=== PATIENT | male | born 1950 | race Caucasian/White ===

== ENCOUNTER 2017-12-18 15:23 | Emergency (ER) | payer MEDICARE, MEDICAID ==
[~2017-12-18] VITALS: Ht 165.1 cm; Wt 68.2 kg
[~2017-12-18 15:23] MED LIST: BUPR150T73 PO; GABA800T2 PO; HYDR50TA13 PO; METH-356 PO; METHADONE
[2017-12-18] MEDS ORDERED: DIPH,PERTUSS(ACELL),TET VAC/PF 0.5 ML IM-VACC ONE ×2 (16:00→16:20)
[2017-12-18] MEDS ORDERED: ACETAMINOPHEN 500 MG TABLET ONE (17:09)
[2017-12-18] MEDS ORDERED: ACETAMINOPHEN 500 MG TABLET PO ONE (17:30)
[2017-12-18 17:51] VITALS: BP 158/95
== END 2017-12-18 18:05 | disposition home or self-care (01) ==
LOC: ED 17:26
DX: S00.81XA Abrasion of other part of head, initial encounter (principal); Z59.0 Homelessness; W19.XXXA Unspecified fall, initial encounter; Y93.89 Activity, other specified; Y92.89 Other specified places as the place of occurrence of the external cause; Y99.8 Other external cause status
CPT/HCPCS: 70450; 72125; 90471; 90715; 99284

== ENCOUNTER 2017-12-20 19:50 | Emergency (ER) | payer MEDICARE, MEDICAID ==
[~2017-12-20] VITALS: Ht 167.6 cm; Wt 63.4 kg
[2017-12-20] MEDS ORDERED: SODIUM CHLORIDE 0.9% 1,000 ML IV ONE (19:59)
[2017-12-20] MEDS ORDERED: ONDANSETRON 2MG/ML, 2ML IVPush ONE (20:00)
[2017-12-20] MEDS ORDERED: SODIUM CHLORIDE 0.9% 1,000ML IVBOLUS ONE (20:00)
[2017-12-20] MEDS ORDERED: THIAMINE 100MG TABLET PO ONE (20:00)
[2017-12-20] MEDS ORDERED: FAMOTIDINE 20 MG/2 ML IVP ONE (20:00)
[2017-12-20 20:53] LABS: BASOPHILS # (AUTO) 0.05 x10^3/uL (0-0.1); BASOPHILS % (AUTO) 1 % (0-1); EOSINOPHILS # (AUTO) 0.01 x10^3/uL (0-0.4); EOSINOPHILS % (AUTO) 0 % (1-7); LYMPHOCYTES # (AUTO) 1.97 x10^3/uL (1-3.4); LYMPHOCYTES % (AUTO) 25 % (22-44); MD NO; MEAN CORPUSCULAR HEMOGLOBIN 33.3 pg (27.5-34.5); MEAN CORPUSCULAR HGB CONC 34.3 g/dL (33.2-36.2); MEAN CORPUSCULAR VOLUME 97.1 fL (81-97); MEAN PLATELET VOLUME 7.8 fL (7.4-10.4); MONOCYTES # (AUTO) 0.63 x10^3/uL (0.2-0.8); MONOCYTES % (AUTO) 8 % (2-9); NEUTROPHILS # (AUTO) 5.26 x10^3/uL (1.8-6.8); NEUTROPHILS % (AUTO) 66 % (42-75); PLATELET COUNT 349 x10^3/uL (130-400); RED BLOOD COUNT 5.17 x10^6/uL (4.38-5.82); RED CELL DISTRIBUTION WIDTH 14.2 % (9.4-14.8)
[2017-12-20] MEDS ORDERED: LORazepam 2 MG/ML, 1ML IVPush ONE (21:00)
[2017-12-20] MEDS ORDERED: SODIUM CHLORIDE 0.9%, 500ML IVBOLUS ONE (21:00)
[2017-12-20] MEDS ORDERED: ONDANSETRON 2MG/ML, 2ML ONE ×2 (21:01→23:43)
[2017-12-20] MEDS ORDERED: LORazepam 2 MG/ML, 1ML ONE (21:02)
[2017-12-20] MEDS ORDERED: FAMOTIDINE 20 MG/2 ML ONE (21:02)
[2017-12-20 21:06] LABS: ACETONE, SERUM Trace (10mg/dL) mg/dL (Negative); ALBUMIN 4.1 g/dL (3.4-5.0); ANION GAP 15 mmol/L (5-15); CALCIUM 8.9 mg/dL (8.5-10.1); CHLORIDE 105 mmol/L (98-107)
[2017-12-20 21:11] LABS: ALANINE AMINOTRANSFERASE 27 U/L (12-78); ALKALINE PHOSPHATASE 78 U/L (45-117); BILIRUBIN,TOTAL 0.7 mg/dL (0.2-1.0); CREATININE 0.82 mg/dL (0.7-1.3); TOTAL PROTEIN 8.1 g/dL (6.4-8.2)
[2017-12-20 23:50] VITALS: BP 149/82
== END 2017-12-20 23:52 | disposition home or self-care (01) ==
LOC: ED 21:58
DX: F10.239 Alcohol dependence with withdrawal, unspecified (principal); K29.20 Alcoholic gastritis without bleeding
CPT/HCPCS: 36415; 80053; 82010; 83690; 83735; 85025; 93005; 96361; 96374; 96375; 99285; J2060; J2405; J7030; J7040; S0028

== ENCOUNTER 2018-05-08 01:25 | Emergency (ER) | payer MEDICARE, MEDICAID ==
[~2018-05-08] VITALS: Ht 167.6 cm; Wt 58.9 kg
[2018-05-08] MEDS ORDERED: GABA600T2 PO (01:40)
[2018-05-08] MEDS ORDERED: ONDANSETRON 2MG/ML, 2ML ONE (01:42)
[2018-05-08] MEDS ORDERED: ONDANSETRON 2MG/ML, 2ML IVPush ONE (02:00)
[2018-05-08] MEDS ORDERED: SODIUM CHLORIDE FLUSH 10ML SYR IVF ONE (02:00)
[2018-05-08] MEDS ORDERED: SODIUM CHLORIDE 0.9% 1,000ML IVBOLUS ONE (02:00)
[2018-05-08 02:06] LABS: BASOPHILS # (AUTO) 0.02 x10^3/uL (0-0.1); BASOPHILS % (AUTO) 0 % (0-1); EOSINOPHILS # (AUTO) 0.04 x10^3/uL (0-0.4); EOSINOPHILS % (AUTO) 1 % (1-7); LYMPHOCYTES # (AUTO) 1.48 x10^3/uL (1-3.4); LYMPHOCYTES % (AUTO) 27 % (22-44); MD NO; MEAN CORPUSCULAR HEMOGLOBIN 34.1 pg (27.5-34.5); MEAN CORPUSCULAR HGB CONC 34.1 g/dL (33.2-36.2); MEAN CORPUSCULAR VOLUME 99.9 fL (81-97); MEAN PLATELET VOLUME 7.7 fL (7.4-10.4); MONOCYTES # (AUTO) 0.62 x10^3/uL (0.2-0.8); MONOCYTES % (AUTO) 11 % (2-9); NEUTROPHILS % (AUTO) 60 % (42-75); PLATELET COUNT 197 x10^3/uL (130-400)
[2018-05-08 02:18] LABS: ALANINE AMINOTRANSFERASE 45 U/L (12-78); ALBUMIN 3.8 g/dL (3.4-5.0); ANION GAP 9 mmol/L (5-15); CALCIUM 8.4 mg/dL (8.5-10.1); CHLORIDE 107 mmol/L (98-107); CREATININE 0.76 mg/dL (0.7-1.3)
[2018-05-08 02:20] LABS: ALKALINE PHOSPHATASE 61 U/L (45-117); BILIRUBIN,TOTAL 0.6 mg/dL (0.2-1.0); TOTAL PROTEIN 6.8 g/dL (6.4-8.2)
[2018-05-08 02:35] VITALS: BP 168/97
== END 2018-05-08 02:36 | disposition home or self-care (01) ==
LOC: ED 02:03
DX: R10.84 Generalized abdominal pain (principal); E87.2 Acidosis; R11.2 Nausea with vomiting, unspecified; E86.0 Dehydration; F17.200 Nicotine dependence, unspecified, uncomplicated
CPT/HCPCS: 36415; 74021; 80053; 83605; 83690; 85025; 96374; 99285; J2405; J7030

== ENCOUNTER 2018-05-09 07:02 | Emergency (ER) | payer MEDICARE, MEDICAID ==
[~2018-05-09] VITALS: Ht 167.6 cm; Wt 59.0 kg
[~2018-05-09 07:02] MED LIST changes: +GABA600T2 PO
[2018-05-09 07:04] VITALS: BP 120/70
[2018-05-09] MEDS ORDERED: ONDANSETRON 2MG/ML, 2ML IVPush ONE (07:30)
[2018-05-09] MEDS ORDERED: FAMOTIDINE 20 MG/2 ML IVP ONE (07:30)
[2018-05-09] MEDS ORDERED: SODIUM CHLORIDE FLUSH 10ML SYR IVF ONE (07:30)
[2018-05-09] MEDS ORDERED: SODIUM CHLORIDE 0.9% 1,000ML IVBOLUS ONE (07:30)
[2018-05-09] MEDS ORDERED: FAMOTIDINE 20 MG/2 ML ONE (07:40)
[2018-05-09] MEDS ORDERED: ONDANSETRON 2MG/ML, 2ML ONE (07:40)
[2018-05-09 08:02] LABS: BASOPHILS # (AUTO) 0.02 x10^3/uL (0-0.1); BASOPHILS % (AUTO) 0 % (0-1); EOSINOPHILS # (AUTO) 0.01 x10^3/uL (0-0.4); EOSINOPHILS % (AUTO) 0 % (1-7); LYMPHOCYTES # (AUTO) 1.13 x10^3/uL (1-3.4); LYMPHOCYTES % (AUTO) 19 % (22-44); MD NO; MEAN CORPUSCULAR HEMOGLOBIN 34.3 pg (27.5-34.5); MEAN CORPUSCULAR HGB CONC 34.2 g/dL (33.2-36.2); MEAN CORPUSCULAR VOLUME 100.3 fL (81-97); MONOCYTES # (AUTO) 0.43 x10^3/uL (0.2-0.8); MONOCYTES % (AUTO) 7 % (2-9); NEUTROPHILS # (AUTO) 4.51 x10^3/uL (1.8-6.8); NEUTROPHILS % (AUTO) 74 % (42-75); PLATELET COUNT 212 x10^3/uL (130-400); RED BLOOD COUNT 4.87 x10^6/uL (4.38-5.82); RED CELL DISTRIBUTION WIDTH 13.9 % (9.4-14.8)
[2018-05-09 08:11] LABS: ALANINE AMINOTRANSFERASE 49 U/L (12-78); ALBUMIN 4.3 g/dL (3.4-5.0); ANION GAP 12 mmol/L (5-15); CALCIUM 9.7 mg/dL (8.5-10.1); CHLORIDE 99 mmol/L (98-107); CREATININE 0.72 mg/dL (0.7-1.3)
[2018-05-09 08:13] LABS: ALKALINE PHOSPHATASE 69 U/L (45-117); BILIRUBIN,TOTAL 0.6 mg/dL (0.2-1.0); TOTAL PROTEIN 7.6 g/dL (6.4-8.2)
[2018-05-09] MEDS ORDERED: THIAMINE 100MG TABLET PO ONE (08:30)
[2018-05-09] MEDS ORDERED: LORazepam 1MG TABLET PO ONE (08:30)
[2018-05-09] MEDS ORDERED: FOLIC ACID 1 MG TABLET PO ONE (08:30)
[2018-05-09] MEDS ORDERED: THIAMINE 100MG TABLET ONE (08:49)
[2018-05-09] MEDS ORDERED: LORazepam 1MG TABLET ONE (08:50)
== END 2018-05-09 09:18 | disposition home or self-care (01) ==
LOC: ED 08:04
DX: R11.2 Nausea with vomiting, unspecified (principal)
CPT/HCPCS: 36415; 80053; 83690; 85025; 96374; 96375; 99284; J2405; J7030; S0028

== ENCOUNTER 2018-05-21 11:42 | Inpatient (IN) | payer MEDICARE, MEDICAID ==
[~2018-05-21] VITALS: Ht 167.6 cm; Wt 56.8 kg
[2018-05-21] MEDS ORDERED: FAMOTIDINE 20 MG/2 ML IVP ONE (12:00)
[2018-05-21] MEDS ORDERED: SODIUM CHLORIDE FLUSH 10ML SYR IVF ONE (12:00)
[2018-05-21] MEDS ORDERED: ONDANSETRON 2MG/ML, 2ML IVPush ONE (12:00)
[2018-05-21] MEDS ORDERED: SODIUM CHLORIDE 0.9% 1,000ML IVBOLUS ONE (12:00)
[2018-05-21] MEDS ORDERED: ONDANSETRON 2MG/ML, 2ML ONE (12:03)
[2018-05-21] MEDS ORDERED: FAMOTIDINE 20 MG/2 ML ONE (12:03)
[2018-05-21 12:13] LABS: BASOPHILS # (AUTO) 0.02 x10^3/uL (0-0.1); BASOPHILS % (AUTO) 0 % (0-1); EOSINOPHILS % (AUTO) 0 % (1-7); LYMPHOCYTES # (AUTO) 0.78 x10^3/uL (1-3.4); LYMPHOCYTES % (AUTO) 6 % (22-44); MD NO; MEAN CORPUSCULAR HGB CONC 34.6 g/dL (33.2-36.2); MEAN CORPUSCULAR VOLUME 101.3 fL (81-97); MEAN PLATELET VOLUME 7.4 fL (7.4-10.4); MONOCYTES % (AUTO) 6 % (2-9); NEUTROPHILS # (AUTO) 12.41 x10^3/uL (1.8-6.8); NEUTROPHILS % (AUTO) 89 % (42-75); PLATELET COUNT 327 x10^3/uL (130-400); RED CELL DISTRIBUTION WIDTH 15.3 % (9.4-14.8)
[2018-05-21 12:27] LABS: INTERNATIONAL NORMALIZED RATIO 0.88 (0.93-1.1); PROTHROMBIN TIME 9.2 Seconds (9.6-11.5)
[2018-05-21 12:29] LABS: ALANINE AMINOTRANSFERASE 55 U/L (12-78); ALBUMIN 3.8 g/dL (3.4-5.0); ANION GAP 19 mmol/L (5-15); CALCIUM 7.6 mg/dL (8.5-10.1); CHLORIDE 100 mmol/L (98-107); CREATININE 0.96 mg/dL (0.7-1.3)
[2018-05-21 12:30] LABS: ALKALINE PHOSPHATASE 61 U/L (45-117); BILIRUBIN,TOTAL 0.6 mg/dL (0.2-1.0); TOTAL PROTEIN 7.5 g/dL (6.4-8.2)
[2018-05-21] MEDS ORDERED: SODIUM CHLORIDE 0.9%, 500ML IVBOLUS ONE (13:30)
[2018-05-21] MEDS ORDERED: LORazepam 2 MG/ML, 1ML IVPush ONE (14:00)
[2018-05-21] MEDS ORDERED: METOCLOPRAMIDE 5 MG/ML, 2ML IVPush ONE (14:00)
[2018-05-21] MEDS ORDERED: GABA300C10 PO (14:04)
[2018-05-21] MEDS ORDERED: METOCLOPRAMIDE 5 MG/ML, 2ML ONE (14:05)
[2018-05-21] MEDS ORDERED: LORazepam 2 MG/ML, 1ML ONE (14:07)
[2018-05-21] MEDS ORDERED: LABETALOL 5MG/ML, 20ML IVPush PRN (15:00)
[2018-05-21] MEDS ORDERED: POTASSIUM CHLORIDE 20 MEQ, MAGNESIUM SULFATE 2 GM, THIAMINE 100 MG, MVI ADULT 10 ML, FO... IV SCH (16:00)
[2018-05-21] MEDS: ENOXAPARIN 40 MG/0.4 ML SQ SCH (17:01)
[2018-05-21] MEDS: NICOTINE 14MG/24 HR PATCH.TD24 TD SCH (17:02)
[2018-05-21] MEDS: ONDANSETRON 2MG/ML, 2ML IVPush PRN (17:28)
[2018-05-21 18:00] VITALS: BP 130/86
[2018-05-21] MEDS: LORazepam 2 MG/ML, 1ML IVPush PRN ×2 (18:38→23:19)
[2018-05-21] MEDS ORDERED: METOPROLOL 1 MG/ML, 5ML IVPush ONE (19:15)
[2018-05-21] MEDS ORDERED: METOPROLOL 1 MG/ML, 5ML ONE (19:20)
[2018-05-21] MEDS ORDERED: MAGNESIUM SULFATE PMX 2GM/50ML 50 ML IV ONE (19:30)
[2018-05-21 19:59] VITALS: BP 145/67
[2018-05-21] MEDS ORDERED: DILTIAZEM 125 MG in SODIUM CHLORIDE 0.9% 100 ML IV PRN (20:00)
[2018-05-21] MEDS: PROMETHAZINE 25 MG/ML, 1ML IM PRN (21:26)
[2018-05-21] MEDS: FAMOTIDINE 20 MG/2 ML IVPush SCH (21:26)
[2018-05-22 00:27] VITALS: BP 157/79
[2018-05-22] MEDS: LORazepam 2 MG/ML, 1ML IV PRN ×11 (02:52→23:20)
[2018-05-22] MEDS ORDERED: LORazepam 2 MG/ML, 1ML IV PRN (03:00)
[2018-05-22] MEDS ORDERED: LORazepam 1MG TABLET PO PRN ×3 (03:00)
[2018-05-22 03:45] LABS: OCCULT BLOOD POSITIVE (NEGATIVE)
[2018-05-22 03:54] LABS: CLOSTRIDIUM DIFFICILE TOXIN NEGATIVE (Negative)
[2018-05-22 03:56] LABS: CLOSTRIDIUM DIFFICILE ANTIGEN POSITIVE
[2018-05-22 05:45] LABS: ALANINE AMINOTRANSFERASE 45 U/L (12-78); ALBUMIN 3.4 g/dL (3.4-5.0); ANION GAP 8 mmol/L (5-15); CALCIUM 8.1 mg/dL (8.5-10.1); CHLORIDE 107 mmol/L (98-107); CREATININE 0.69 mg/dL (0.7-1.3); MEAN CORPUSCULAR HEMOGLOBIN 35.2 pg (27.5-34.5); MEAN CORPUSCULAR HGB CONC 34.6 g/dL (33.2-36.2); MEAN CORPUSCULAR VOLUME 101.7 fL (81-97); MEAN PLATELET VOLUME 7.7 fL (7.4-10.4); PLATELET COUNT 240 x10^3/uL (130-400); RED BLOOD COUNT 4.26 x10^6/uL (4.38-5.82)
[2018-05-22 05:48] LABS: ALKALINE PHOSPHATASE 44 U/L (45-117); BILIRUBIN,TOTAL 0.8 mg/dL (0.2-1.0); TOTAL PROTEIN 6.3 g/dL (6.4-8.2)
[2018-05-22 06:13] LABS: MD YES
[2018-05-22 06:15] LABS: BANDS%(MANUAL) 3 % (0-7)
[2018-05-22 06:16] LABS: ANISOCYTOSIS 1+; LYMPH#(MANUAL) 0.81 x10^3/uL (1-3.4); LYMPHS% (MANUAL) 8 % (22-44); MONOS#(MANUAL) 0.61 x10^3/uL (0.3-2.7); MONOS% (MANUAL) 6 % (2-9); SEG#(MANUAL) 8.38 x10^3/uL (1.8-6.8); SEGS% (MANUAL) 83 % (42-75)
[2018-05-22 06:17] LABS: <PLATELET ESTIMATE> ADEQUATE; <PLT MORPHOLOGY> NORMAL PLT MORPH
[2018-05-22 06:52] VITALS: BP 152/79
[2018-05-22] MEDS: ONDANSETRON 2MG/ML, 2ML IVPush PRN ×3 (07:52→23:20)
[2018-05-22] MEDS: FAMOTIDINE 20 MG/2 ML IVPush SCH ×2 (07:52→20:20)
[2018-05-22] MEDS ORDERED: ATENOLOL 25 MG TABLET PO SCH (09:00)
[2018-05-22] MEDS: CHLORDIAZEPOXIDE 5 MG CAPSULE PO SCH ×4 (11:04→21:00)
[2018-05-22] MEDS: METRONIDAZOLE PMX 500MG/100ML 100 ML IV SCH ×2 (11:05→17:14)
[2018-05-22] MEDS: NICOTINE 14MG/24 HR PATCH.TD24 TD SCH (11:25)
[2018-05-22 13:08] VITALS: BP 147/78
[2018-05-22] MEDS: ENOXAPARIN 40 MG/0.4 ML SQ SCH (17:28)
[2018-05-22] MEDS: PROMETHAZINE 25 MG/ML, 1ML IM PRN (17:32)
[2018-05-22] MEDS: POTASSIUM CHLORIDE 20 MEQ, MAGNESIUM SULFATE 1 GM, MVI ADULT 10 ML, THIAMINE 200 MG, FO... IV SCH (18:23)
[2018-05-22 19:18] VITALS: BP 135/71
[2018-05-23] MEDS: LORazepam 2 MG/ML, 1ML IV PRN ×6 (00:14→22:10)
[2018-05-23] MEDS: METRONIDAZOLE PMX 500MG/100ML 100 ML IV SCH ×3 (02:06→18:05)
[2018-05-23 02:59] VITALS: BP 133/86
[2018-05-23] MEDS: NS + 20MEQ KCL 1,000 ML IV SCH ×3 (04:23→23:21)
[2018-05-23 04:34] LABS: BASOPHILS # (AUTO) 0.01 x10^3/uL (0-0.1); BASOPHILS % (AUTO) 0 % (0-1); EOSINOPHILS % (AUTO) 0 % (1-7); LYMPHOCYTES % (AUTO) 13 % (22-44); MD NO; MEAN CORPUSCULAR HEMOGLOBIN 34.8 pg (27.5-34.5); MEAN CORPUSCULAR HGB CONC 33.9 g/dL (33.2-36.2); MEAN CORPUSCULAR VOLUME 102.7 fL (81-97); MEAN PLATELET VOLUME 7.8 fL (7.4-10.4); MONOCYTES # (AUTO) 0.54 x10^3/uL (0.2-0.8); MONOCYTES % (AUTO) 10 % (2-9); NEUTROPHILS # (AUTO) 4.12 x10^3/uL (1.8-6.8); NEUTROPHILS % (AUTO) 77 % (42-75); PLATELET COUNT 177 x10^3/uL (130-400); RED BLOOD COUNT 4.05 x10^6/uL (4.38-5.82); RED CELL DISTRIBUTION WIDTH 14.9 % (9.4-14.8)
[2018-05-23 04:45] LABS: ANION GAP 9 mmol/L (5-15); CHLORIDE 108 mmol/L (98-107)
[2018-05-23 04:49] LABS: ALANINE AMINOTRANSFERASE 44 U/L (12-78); ALKALINE PHOSPHATASE 41 U/L (45-117); BILIRUBIN,TOTAL 0.6 mg/dL (0.2-1.0); CREATININE 0.54 mg/dL (0.7-1.3); TOTAL PROTEIN 5.8 g/dL (6.4-8.2)
[2018-05-23] MEDS: PROMETHAZINE 25 MG/ML, 1ML IM PRN ×2 (06:36→12:38)
[2018-05-23 07:00] VITALS: BP 141/79
[2018-05-23] MEDS: CHLORDIAZEPOXIDE 5 MG CAPSULE PO SCH ×3 (08:52→20:47)
[2018-05-23] MEDS: FAMOTIDINE 20 MG/2 ML IVPush SCH ×2 (08:52→20:47)
[2018-05-23 09:45] LABS: THYROID STIMULATING HORMONE 0.853 mIU/L (0.358-3.740)
[2018-05-23] MEDS: ONDANSETRON 2MG/ML, 2ML IVPush PRN ×3 (10:58→20:47)
[2018-05-23] MEDS: NICOTINE 14MG/24 HR PATCH.TD24 TD SCH (10:59)
[2018-05-23 14:46] VITALS: BP 157/64
[2018-05-23 16:30] LABS: TROPONIN I < 0.015 ng/mL (0.000-0.045)
[2018-05-23 16:36] VITALS: BP 157/64
[2018-05-23 19:27] VITALS: BP 154/71
[2018-05-23] MEDS: POTASSIUM CHLORIDE 20 MEQ, MAGNESIUM SULFATE 1 GM, MVI ADULT 10 ML, THIAMINE 200 MG, FO... IV SCH (20:55)
[2018-05-24 00:47] VITALS: BP 149/71
[2018-05-24] MEDS: LORazepam 2 MG/ML, 1ML IV PRN ×7 (01:13→23:14)
[2018-05-24] MEDS: METRONIDAZOLE PMX 500MG/100ML 100 ML IV SCH (01:57)
[2018-05-24] MEDS ORDERED: LOPERAMIDE 2 MG CAPSULE PO PRN (07:00)
[2018-05-24 07:27] VITALS: BP 138/69
[2018-05-24] MEDS: PROMETHAZINE 25 MG/ML, 1ML IM PRN ×2 (07:31→13:38)
[2018-05-24] MEDS: FAMOTIDINE 20 MG/2 ML IVPush SCH ×2 (07:31→20:14)
[2018-05-24] MEDS: CHLORDIAZEPOXIDE 5 MG CAPSULE PO SCH ×3 (07:31→20:25)
[2018-05-24] MEDS: ONDANSETRON 2MG/ML, 2ML IVPush PRN (10:36)
[2018-05-24] MEDS: NICOTINE 14MG/24 HR PATCH.TD24 TD SCH (10:36)
[2018-05-24 13:54] VITALS: BP 135/65
[2018-05-24] MEDS: NS + 20MEQ KCL 1,000 ML IV SCH ×2 (15:05→20:26)
[2018-05-24 15:41] LABS: ANION GAP 12 mmol/L (5-15); CALCIUM 8.1 mg/dL (8.5-10.1); CHLORIDE 103 mmol/L (98-107); CREATININE 0.43 mg/dL (0.7-1.3)
[2018-05-24] MEDS: GABAPENTIN 100 MG CAPSULE PO SCH ×2 (16:24→20:14)
[2018-05-24] MEDS: morphine SULFATE 10 MG/ML, 1ML IVPush PRN ×2 (16:36→20:14)
[2018-05-24] MEDS: POTASSIUM CHLORIDE 20 MEQ, MAGNESIUM SULFATE 1 GM, MVI ADULT 10 ML, THIAMINE 200 MG, FO... IV SCH (19:17)
[2018-05-24 19:29] VITALS: BP 150/81
[2018-05-25] VITALS (7 sets, daily range): BP systolic 130–168; BP diastolic 73–105
[2018-05-25] MEDS: morphine SULFATE 10 MG/ML, 1ML IVPush PRN ×6 (02:29→20:32)
[2018-05-25 05:55] LABS: ANION GAP 10 mmol/L (5-15); CHLORIDE 101 mmol/L (98-107)
[2018-05-25 06:01] LABS: ALANINE AMINOTRANSFERASE 59 U/L (12-78); ALKALINE PHOSPHATASE 48 U/L (45-117); BILIRUBIN,TOTAL 0.8 mg/dL (0.2-1.0); CALCIUM 8.4 mg/dL (8.5-10.1); CREATININE 0.51 mg/dL (0.7-1.3); TOTAL PROTEIN 6.4 g/dL (6.4-8.2)
[2018-05-25] MEDS: FAMOTIDINE 20 MG/2 ML IVPush SCH (09:36)
[2018-05-25] MEDS: GABAPENTIN 100 MG CAPSULE PO SCH ×3 (09:36→20:32)
[2018-05-25] MEDS: POTASSIUM CHLORIDE 20 MEQ TAB.ER.PRT PO SCH ×2 (09:36→16:10)
[2018-05-25] MEDS: NS + 20MEQ KCL 1,000 ML IV SCH (09:36)
[2018-05-25] MEDS: CHLORDIAZEPOXIDE 5 MG CAPSULE PO SCH ×3 (09:36→20:32)
[2018-05-25] MEDS: NICOTINE 14MG/24 HR PATCH.TD24 TD SCH (11:29)
[2018-05-25] MEDS: LORazepam 0.5MG TABLET PO PRN ×2 (13:12→23:45)
[2018-05-25] MEDS: AMLODIPINE 2.5 MG TABLET PO SCH (14:36)
[2018-05-25] MEDS: POTASSIUM CHLORIDE 20 MEQ, MAGNESIUM SULFATE 1 GM, FOLIC ACID 1 MG, THIAMINE 200 MG, MV... IV SCH (15:33)
[2018-05-25] MEDS: LABETALOL 5MG/ML, 20ML IVPush PRN (16:10)
[2018-05-25] MEDS ORDERED: FAMOTIDINE 20 MG TABLET PO SCH (21:00)
[2018-05-26 00:22] VITALS: BP 153/86
[2018-05-26] MEDS: morphine SULFATE 10 MG/ML, 1ML IVPush PRN ×3 (00:51→08:37)
[2018-05-26 05:23] LABS: ANION GAP 11 mmol/L (5-15); CALCIUM 8.4 mg/dL (8.5-10.1); CHLORIDE 100 mmol/L (98-107)
[2018-05-26 05:26] LABS: BASOPHILS # (AUTO) 0.02 x10^3/uL (0-0.1); BASOPHILS % (AUTO) 0 % (0-1); EOSINOPHILS # (AUTO) 0.09 x10^3/uL (0-0.4); EOSINOPHILS % (AUTO) 1 % (1-7); LYMPHOCYTES # (AUTO) 1.31 x10^3/uL (1-3.4); LYMPHOCYTES % (AUTO) 17 % (22-44); MD NO; MEAN CORPUSCULAR HGB CONC 34.2 g/dL (33.2-36.2); MEAN CORPUSCULAR VOLUME 102.1 fL (81-97); MEAN PLATELET VOLUME 7.9 fL (7.4-10.4); MONOCYTES # (AUTO) 0.98 x10^3/uL (0.2-0.8); MONOCYTES % (AUTO) 13 % (2-9); NEUTROPHILS # (AUTO) 5.29 x10^3/uL (1.8-6.8); NEUTROPHILS % (AUTO) 69 % (42-75); PLATELET COUNT 243 x10^3/uL (130-400); RED BLOOD COUNT 4.59 x10^6/uL (4.38-5.82); RED CELL DISTRIBUTION WIDTH 14.1 % (9.4-14.8)
[2018-05-26 05:27] LABS: ALANINE AMINOTRANSFERASE 73 U/L (12-78); ALKALINE PHOSPHATASE 54 U/L (45-117); BILIRUBIN,TOTAL 0.7 mg/dL (0.2-1.0); TOTAL PROTEIN 6.7 g/dL (6.4-8.2)
[2018-05-26] MEDS: LORazepam 0.5MG TABLET PO PRN (06:20)
[2018-05-26 07:10] VITALS: BP 149/88
[2018-05-26] MEDS: CHLORDIAZEPOXIDE 5 MG CAPSULE PO SCH ×3 (08:37→20:44)
[2018-05-26] MEDS: PANTOPROZOLE 40MG TABLET PO SCH (08:37)
[2018-05-26] MEDS: POTASSIUM CHLORIDE 20 MEQ TAB.ER.PRT PO SCH ×2 (08:37→16:16)
[2018-05-26] MEDS: GABAPENTIN 100 MG CAPSULE PO SCH ×3 (08:38→20:44)
[2018-05-26] MEDS: AMLODIPINE 2.5 MG TABLET PO SCH (08:38)
[2018-05-26] MEDS ORDERED: OXYcodone IR 5MG TABLET PO PRN (11:00)
[2018-05-26] MEDS: NICOTINE 14MG/24 HR PATCH.TD24 TD SCH (13:12)
[2018-05-26 13:34] VITALS: BP 148/98
[2018-05-26] MEDS ORDERED: morphine SULFATE 10 MG/ML, 1ML IVPush PRN (15:30)
[2018-05-26] MEDS: POTASSIUM CHLORIDE 20 MEQ, MAGNESIUM SULFATE 1 GM, FOLIC ACID 1 MG, THIAMINE 200 MG, MV... IV SCH (15:52)
[2018-05-26] MEDS: OXYcodone IR 5MG TABLET PO PRN ×2 (15:53→20:44)
[2018-05-26 16:07] VITALS: BP 164/97
[2018-05-26] MEDS: LABETALOL 5MG/ML, 20ML IVPush PRN (16:15)
[2018-05-26] MEDS: LORazepam 1MG TABLET PO PRN (19:53)
[2018-05-26 19:59] VITALS: BP 155/89
[2018-05-27] MEDS: OXYcodone IR 5MG TABLET PO PRN ×5 (01:34→22:36)
[2018-05-27 02:00] VITALS: BP 149/85
[2018-05-27] MEDS: LORazepam 1MG TABLET PO PRN ×3 (02:40→22:36)
[2018-05-27 05:53] LABS: BASOPHILS # (AUTO) 0.01 x10^3/uL (0-0.1); BASOPHILS % (AUTO) 0 % (0-1); EOSINOPHILS # (AUTO) 0.08 x10^3/uL (0-0.4); EOSINOPHILS % (AUTO) 1 % (1-7); LYMPHOCYTES # (AUTO) 0.99 x10^3/uL (1-3.4); LYMPHOCYTES % (AUTO) 16 % (22-44); MD NO; MEAN CORPUSCULAR HEMOGLOBIN 34.8 pg (27.5-34.5); MEAN CORPUSCULAR HGB CONC 34.4 g/dL (33.2-36.2); MEAN PLATELET VOLUME 8.1 fL (7.4-10.4); MONOCYTES # (AUTO) 0.99 x10^3/uL (0.2-0.8); MONOCYTES % (AUTO) 16 % (2-9); NEUTROPHILS # (AUTO) 4.28 x10^3/uL (1.8-6.8); NEUTROPHILS % (AUTO) 68 % (42-75); PLATELET COUNT 266 x10^3/uL (130-400); RED BLOOD COUNT 4.85 x10^6/uL (4.38-5.82)
[2018-05-27 06:05] LABS: CHLORIDE 101 mmol/L (98-107)
[2018-05-27 06:24] LABS: ALANINE AMINOTRANSFERASE 70 U/L (12-78); ALBUMIN 3.2 g/dL (3.4-5.0); ALKALINE PHOSPHATASE 56 U/L (45-117); ANION GAP 13 mmol/L (5-15); BILIRUBIN,TOTAL 0.7 mg/dL (0.2-1.0); CALCIUM 8.7 mg/dL (8.5-10.1); CREATININE 0.61 mg/dL (0.7-1.3); TOTAL PROTEIN 7.3 g/dL (6.4-8.2)
[2018-05-27 07:00] VITALS: BP 152/92
[2018-05-27] MEDS: AMLODIPINE 2.5 MG TABLET PO SCH (07:50)
[2018-05-27] MEDS: GABAPENTIN 100 MG CAPSULE PO SCH ×3 (07:50→21:57)
[2018-05-27] MEDS: POTASSIUM CHLORIDE 20 MEQ TAB.ER.PRT PO SCH ×2 (07:50→16:28)
[2018-05-27] MEDS: PANTOPROZOLE 40MG TABLET PO SCH (07:50)
[2018-05-27] MEDS: CHLORDIAZEPOXIDE 5 MG CAPSULE PO SCH (07:51)
[2018-05-27] MEDS: LORazepam 0.5MG TABLET PO PRN ×2 (07:59→13:12)
[2018-05-27] MEDS: NICOTINE 14MG/24 HR PATCH.TD24 TD SCH (13:12)
[2018-05-27 14:00] VITALS: BP 138/79
[2018-05-27] MEDS: ACETAMINOPHEN 325 MG TABLET PO PRN (16:28)
[2018-05-27 20:18] VITALS: BP 140/85
[2018-05-27] MEDS ORDERED: DIPHENHYDRAMINE 50 MG CAPSULE PO PRN (21:00)
[2018-05-28 00:29] VITALS: BP 122/76
[2018-05-28] MEDS: ACETAMINOPHEN 325 MG TABLET PO PRN (04:31)
[2018-05-28] MEDS: LORazepam 1MG TABLET PO PRN (04:31)
[2018-05-28] MEDS: OXYcodone IR 5MG TABLET PO PRN (04:31)
[2018-05-28 07:05] VITALS: BP 127/74
[2018-05-28] MEDS: PANTOPROZOLE 40MG TABLET PO SCH (08:26)
[2018-05-28] MEDS: AMLODIPINE 2.5 MG TABLET PO SCH (08:26)
[2018-05-28] MEDS: POTASSIUM CHLORIDE 20 MEQ TAB.ER.PRT PO SCH (08:26)
[2018-05-28] MEDS ORDERED: PANT40TA5 PO (08:29)
[2018-05-28] MEDS ORDERED: BUSP5TAB2 PO (08:29)
[2018-05-28] MEDS ORDERED: AMLO2.5T PO (08:29)
[2018-05-28] MEDS ORDERED: MORPHINE SULFATE 4 MG/ML, 1ML ONE (08:33)
[2018-05-28] MEDS ORDERED: GABAPENTIN 300 MG CAPSULE PO SCH (09:00)
[2018-05-28] MEDS ORDERED: MORPHINE SULFATE 4 MG/ML, 1ML IVPush ONE (09:00)
[2018-05-28] MEDS ORDERED: BUSPIRONE 5 MG TABLET PO SCH (09:00)
== END 2018-05-28 10:47 | disposition home or self-care (01) | DRG 438 ==
LOC: ED 14:34 → SUATTDRO 14:36 → EDIP 15:14 → 3NE 15:47 → 4WST 19:52
PROVIDERS: ADMIT Internal Medicine; ATTEND Internal Medicine
DX: K85.20 Alcohol induced acute pancreatitis without necrosis or infection (principal); J96.01 Acute respiratory failure with hypoxia; E43 Unspecified severe protein-calorie malnutrition; F10.221 Alcohol dependence with intoxication delirium; B17.9 Acute viral hepatitis, unspecified; F10.239 Alcohol dependence with withdrawal, unspecified; J98.11 Atelectasis; R65.10 Systemic inflammatory response syndrome (SIRS) of non-infectious origin without acute organ dysfunction; E86.0 Dehydration; E87.6 Hypokalemia; F17.210 Nicotine dependence, cigarettes, uncomplicated; F41.9 Anxiety disorder, unspecified; G62.9 Polyneuropathy, unspecified; G89.29 Other chronic pain; I10 Essential (primary) hypertension; I48.91 Unspecified atrial fibrillation; R00.1 Bradycardia, unspecified; K29.70 Gastritis, unspecified, without bleeding; K76.0 Fatty (change of) liver, not elsewhere classified; Z66 Do not resuscitate; Z79.899 Other long term (current) drug therapy; Z91.041 Radiographic dye allergy status; Z68.20 Body mass index [BMI] 20.0-20.9, adult
CPT/HCPCS: 36415; 71045; 74176; 76700; 80048; 80053; 80307; 82272; 83690; 83735; 83880; 84100; 84443; 84484; 85025; 85610; 87046; 87324; 87427; 87493; 89055; 93005; 93306; 96361; 96374; 99285; J1650; J2405; J2550; J3411; J3475; J3480; J7042; J7070; J2060; J2270; J2765; J7030; J7040; S0028

== ENCOUNTER 2018-06-05 14:59 | Inpatient (IN) | payer MEDICARE, MEDICAID ==
[~2018-06-05] VITALS: Ht 167.6 cm; Wt 56.5 kg
[~2018-06-05 14:59] MED LIST changes: +AMLO2.5T PO; +BUSP5TAB2 PO; +GABA300C10 PO; +PANT40TA5 PO
[2018-06-05] MEDS ORDERED: ONDANSETRON ODT 4 MG ONE (15:17)
[2018-06-05] MEDS ORDERED: ALBUTEROL/IPRATROPIUM 2.5MG/0.5MG, 3 ML ONE ×2 (15:18→16:27)
[2018-06-05] MEDS ORDERED: ONDANSETRON ODT 4 MG PO ONE (15:30)
[2018-06-05] MEDS ORDERED: SODIUM CHLORIDE FLUSH 10ML SYR IVF ONE (15:30)
[2018-06-05] MEDS ORDERED: ALBUTEROL/IPRATROPIUM 2.5MG/0.5MG, 3 ML NPPB ONE ×2 (15:30→16:30)
[2018-06-05 15:41] LABS: BASOPHILS # (AUTO) 0.03 x10^3/uL (0-0.1); BASOPHILS % (AUTO) 0 % (0-1); EOSINOPHILS # (AUTO) 0.02 x10^3/uL (0-0.4); EOSINOPHILS % (AUTO) 0 % (1-7); LYMPHOCYTES # (AUTO) 1.98 x10^3/uL (1-3.4); LYMPHOCYTES % (AUTO) 18 % (22-44); MD NO; MEAN CORPUSCULAR HEMOGLOBIN 34.4 pg (27.5-34.5); MEAN CORPUSCULAR HGB CONC 34.3 g/dL (33.2-36.2); MEAN CORPUSCULAR VOLUME 100.4 fL (81-97); MEAN PLATELET VOLUME 7.3 fL (7.4-10.4); MONOCYTES # (AUTO) 0.87 x10^3/uL (0.2-0.8); MONOCYTES % (AUTO) 8 % (2-9); NEUTROPHILS # (AUTO) 8.42 x10^3/uL (1.8-6.8); NEUTROPHILS % (AUTO) 74 % (42-75); PLATELET COUNT 440 x10^3/uL (130-400); RED BLOOD COUNT 3.67 x10^6/uL (4.38-5.82); RED CELL DISTRIBUTION WIDTH 14.2 % (9.4-14.8)
[2018-06-05 15:53] LABS: ALANINE AMINOTRANSFERASE 31 U/L (12-78); ALBUMIN 2.1 g/dL (3.4-5.0); ANION GAP 7 mmol/L (5-15); CALCIUM 7.6 mg/dL (8.5-10.1); CHLORIDE 109 mmol/L (98-107)
[2018-06-05] MEDS ORDERED: methylPREDNISolone SOD SUCC 125 MG/2 ML IVP ONE (16:00)
[2018-06-05] MEDS ORDERED: methylPREDNISolone SOD SUCC 125 MG/2 ML ONE (16:06)
[2018-06-05 16:08] LABS: INTERNATIONAL NORMALIZED RATIO 0.91 (0.93-1.1); PROTHROMBIN TIME 9.5 Seconds (9.6-11.5)
[2018-06-05] MEDS ORDERED: DIPH25CA61 PO (16:12)
[2018-06-05 16:17] LABS: ALKALINE PHOSPHATASE 94 U/L (45-117); BILIRUBIN,TOTAL 0.1 mg/dL (0.2-1.0); CREATININE 0.54 mg/dL (0.7-1.3); TOTAL PROTEIN 6.4 g/dL (6.4-8.2)
[2018-06-05] MEDS ORDERED: CEFTRIAXONE 1,000 MG in SODIUM CHLORIDE 0.9% 50 ML IVPB ONE (16:30)
[2018-06-05] MEDS ORDERED: CEFTRIAXONE PMX 1GM/50ML 50 ML ONE (16:42)
[2018-06-05] MEDS ORDERED: VERAPAMIL 2.5 MG/ML, 2ML ONE (17:26)
[2018-06-05] MEDS ORDERED: VERAPAMIL 2.5 MG/ML, 4ML IVPush ONE (17:30)
[2018-06-05] MEDS ORDERED: OMNIPAQUE 350 MG/ML, 100ML BOTTLE ONE (18:20)
[2018-06-05] MEDS ORDERED: DILTIAZEM 5 MG/ML, 5ML IV ONE (19:00)
[2018-06-05] MEDS ORDERED: FOLIC ACID 5 MG/ML IM ONE (19:30)
[2018-06-05] MEDS ORDERED: LORazepam 0.5MG TABLET PO PRN (19:30)
[2018-06-05] MEDS ORDERED: LORazepam 2 MG/ML, 1ML IV PRN ×3 (19:30)
[2018-06-05] MEDS ORDERED: LABETALOL 5MG/ML, 20ML IVPush PRN (19:30)
[2018-06-05] MEDS ORDERED: ONDANSETRON 2MG/ML, 2ML IVPush PRN (19:30)
[2018-06-05] MEDS ORDERED: ENALAPRILAT 1.25 MG/ML, 2ML IVPush PRN (19:30)
[2018-06-05] MEDS ORDERED: THIAMINE 200 MG in DEXTROSE 5% 50 ML IVPB ONE (19:30)
[2018-06-05] MEDS ORDERED: ACETAMINOPHEN 325 MG TABLET PO PRN (19:30)
[2018-06-05] MEDS ORDERED: LORazepam 1MG TABLET PO PRN ×2 (19:30)
[2018-06-05] MEDS ORDERED: ENOXAPARIN 40 MG/0.4 ML SQ SCH (19:30)
[2018-06-05] MEDS: DILTIAZEM 5 MG/ML, 10ML IVPush PRN (20:33)
[2018-06-05 20:43] VITALS: BP 125/82
[2018-06-05] MEDS: LORazepam 2 MG/ML, 1ML IV PRN (21:37)
[2018-06-05] MEDS: FAMOTIDINE 20 MG TABLET PO SCH (21:37)
[2018-06-05] MEDS: BACLOFEN 10 MG TABLET PO SCH (21:37)
[2018-06-05] MEDS: METOPROLOL TARTRATE 50 MG TABLET PO SCH (21:37)
[2018-06-05 21:43] LABS: MICROSCOPIC AUTO
[2018-06-05 21:45] LABS: CULTURE INDICATED? NO
[2018-06-05 21:50] LABS: AMPHETAMINE SCREEN, URINE Negative (Negative); BARBITURATE SCREEN, URINE Negative (Negative); BENZODIAZEPINE SCREEN, URINE Negative (Negative); CANNABINOID SCREEN, URINE Negative (Negative); COCAINE SCREEN, URINE Negative (Negative); METHADONE SCREEN, URINE Positive (Negative); OPIATE SCREEN, URINE Negative (Negative)
[2018-06-05] MEDS ORDERED: FOLIC ACID 1 MG TABLET PO ONE (22:30)
[2018-06-05] MEDS: PIPERACILLIN/TAZO/PMX 3.375GM 50 ML IV SCH (22:33)
[2018-06-05 22:37] VITALS: BP 128/96
[2018-06-05] MEDS: ONDANSETRON ODT 4 MG PO PRN (23:31)
[2018-06-05] MEDS: NS + 20MEQ KCL 1,000 ML IV SCH (23:38)
[2018-06-06 01:59] VITALS: BP 143/92
[2018-06-06] MEDS: PIPERACILLIN/TAZO/PMX 3.375GM 50 ML IV SCH ×4 (02:51→23:30)
[2018-06-06] MEDS: LORazepam 1MG TABLET PO PRN ×3 (04:00→21:12)
[2018-06-06] MEDS: METOPROLOL TARTRATE 50 MG TABLET PO SCH ×3 (05:21→21:13)
[2018-06-06 05:50] LABS: BASOPHILS % (AUTO) 0 % (0-1); EOSINOPHILS % (AUTO) 0 % (1-7); LYMPHOCYTES # (AUTO) 0.37 x10^3/uL (1-3.4); LYMPHOCYTES % (AUTO) 4 % (22-44); MD NO; MEAN CORPUSCULAR HEMOGLOBIN 34.5 pg (27.5-34.5); MEAN CORPUSCULAR HGB CONC 33.8 g/dL (33.2-36.2); MEAN CORPUSCULAR VOLUME 102.2 fL (81-97); MEAN PLATELET VOLUME 8.1 fL (7.4-10.4); MONOCYTES # (AUTO) 0.22 x10^3/uL (0.2-0.8); MONOCYTES % (AUTO) 3 % (2-9); NEUTROPHILS # (AUTO) 8.04 x10^3/uL (1.8-6.8); NEUTROPHILS % (AUTO) 93 % (42-75); PLATELET COUNT 380 x10^3/uL (130-400); RED BLOOD COUNT 3.34 x10^6/uL (4.38-5.82); RED CELL DISTRIBUTION WIDTH 14.2 % (9.4-14.8)
[2018-06-06 05:56] LABS: ANION GAP 8 mmol/L (5-15); CALCIUM 7.8 mg/dL (8.5-10.1); CHLORIDE 105 mmol/L (98-107)
[2018-06-06 05:58] LABS: CREATININE 0.58 mg/dL (0.7-1.3)
[2018-06-06] MEDS: ONDANSETRON ODT 4 MG PO PRN (06:46)
[2018-06-06 07:31] VITALS: BP_SYST 133; BP_SYST 145; BP_DIAS 82; BP_DIAS 96
[2018-06-06] MEDS: BACLOFEN 10 MG TABLET PO SCH ×2 (08:07→20:44)
[2018-06-06] MEDS: LORazepam 2 MG/ML, 1ML IV PRN ×6 (08:07→23:51)
[2018-06-06] MEDS: FAMOTIDINE 20 MG TABLET PO SCH ×2 (08:07→20:44)
[2018-06-06] MEDS: MULTIVITAMINS/MINERALS TABLET PO SCH (08:07)
[2018-06-06] MEDS: NS + 20MEQ KCL 1,000 ML IV SCH ×2 (10:59→20:44)
[2018-06-06 13:14] VITALS: BP 137/85
[2018-06-06 22:00] VITALS: BP_SYST 151; BP_DIAS 9; BP_DIAS 99
[2018-06-06 22:46] VITALS: BP 133/90
[2018-06-07 00:59] VITALS: BP 150/86
[2018-06-07] MEDS: LORazepam 2 MG/ML, 1ML IV PRN ×3 (01:05→03:48)
[2018-06-07] MEDS: DILTIAZEM 5 MG/ML, 10ML IVPush PRN (03:15)
[2018-06-07 03:17] VITALS: BP 132/107
[2018-06-07 03:46] VITALS: BP 144/93
[2018-06-07] MEDS: PIPERACILLIN/TAZO/PMX 3.375GM 50 ML IV SCH (05:36)
[2018-06-07] MEDS: LORazepam 1MG TABLET PO PRN ×3 (05:36→09:35)
[2018-06-07] MEDS: METOPROLOL TARTRATE 50 MG TABLET PO SCH ×3 (05:36→20:18)
[2018-06-07] MEDS: NS + 20MEQ KCL 1,000 ML IV SCH ×3 (06:01→20:06)
[2018-06-07 07:59] LABS: BASOPHILS # (AUTO) 0.02 x10^3/uL (0-0.1); BASOPHILS % (AUTO) 0 % (0-1); EOSINOPHILS % (AUTO) 0 % (1-7); LYMPHOCYTES # (AUTO) 1.47 x10^3/uL (1-3.4); LYMPHOCYTES % (AUTO) 15 % (22-44); MD NO; MEAN CORPUSCULAR HEMOGLOBIN 34.4 pg (27.5-34.5); MEAN CORPUSCULAR HGB CONC 33.8 g/dL (33.2-36.2); MEAN CORPUSCULAR VOLUME 101.6 fL (81-97); MEAN PLATELET VOLUME 7.8 fL (7.4-10.4); MONOCYTES # (AUTO) 0.36 x10^3/uL (0.2-0.8); MONOCYTES % (AUTO) 4 % (2-9); NEUTROPHILS # (AUTO) 7.81 x10^3/uL (1.8-6.8); NEUTROPHILS % (AUTO) 81 % (42-75); PLATELET COUNT 404 x10^3/uL (130-400); RED CELL DISTRIBUTION WIDTH 13.9 % (9.4-14.8)
[2018-06-07 08:06] LABS: ALANINE AMINOTRANSFERASE 56 U/L (12-78); ALBUMIN 1.9 g/dL (3.4-5.0); ANION GAP 7 mmol/L (5-15); CALCIUM 7.8 mg/dL (8.5-10.1); CHLORIDE 109 mmol/L (98-107); CREATININE 0.58 mg/dL (0.7-1.3)
[2018-06-07 08:08] LABS: ALKALINE PHOSPHATASE 178 U/L (45-117); BILIRUBIN,TOTAL 0.3 mg/dL (0.2-1.0); TOTAL PROTEIN 5.9 g/dL (6.4-8.2)
[2018-06-07] MEDS: MULTIVITAMINS/MINERALS TABLET PO SCH ×2 (08:44→14:02)
[2018-06-07] MEDS: BACLOFEN 10 MG TABLET PO SCH (08:44)
[2018-06-07] MEDS: FAMOTIDINE 20 MG TABLET PO SCH (08:44)
[2018-06-07] MEDS ORDERED: DEXMEDETOMIDINE 200 MCG in SODIUM CHLORIDE 0.9% 48 ML IV PRN (10:12)
[2018-06-07] MEDS ORDERED: BISACODYL 10 MG SUPP PR PRN (10:30)
[2018-06-07] MEDS ORDERED: LABETALOL 5MG/ML, 20ML IV PRN (10:30)
[2018-06-07] MEDS ORDERED: PHARMACY INSTRUCTION MC PRN ×4 (10:30)
[2018-06-07] MEDS ORDERED: ACETAMINOPHEN 325 MG TABLET PO PRN (10:30)
[2018-06-07] MEDS ORDERED: SODIUM CHLORIDE 0.9% IV ONE ×3 (10:30→16:00)
[2018-06-07] MEDS ORDERED: PHENOBARBITAL SODIUM IV ONE ×3 (10:30→16:00)
[2018-06-07] MEDS ORDERED: THIAMINE 200 MG in DEXTROSE 5% 50 ML IVPB ONE (10:30)
[2018-06-07] MEDS ORDERED: DOCUSATE 100 MG CAPSULE PO PRN (10:30)
[2018-06-07] MEDS: AMPICILLIN/SULBACTAM 3 GM in SODIUM CHLORIDE 0.9% 100 ML IV SCH ×3 (11:49→21:48)
[2018-06-07] MEDS: PANTOPRAZOLE 40 MG IV IVPush SCH (12:04)
[2018-06-07] MEDS: ENOXAPARIN 40 MG/0.4 ML SQ SCH (12:04)
[2018-06-07] MEDS: FOLIC ACID 1 MG TABLET PO SCH (14:02)
[2018-06-07] MEDS: THIAMINE 100MG TABLET PO SCH (14:03)
[2018-06-07] MEDS: PHENOBARBITAL 20 MG/5 ML ORAL SOL PO SCH (21:49)
[2018-06-07] MEDS ORDERED: ZIPRASIDONE 20 MG INJ IM ONE ×2 (22:37→23:00)
[2018-06-07] MEDS ORDERED: LORazepam 2 MG/ML, 1ML IVPush ONE (23:00)
[2018-06-08] MEDS ORDERED: ZIPRASIDONE 20 MG INJ IM PRN (01:30)
[2018-06-08] MEDS ORDERED: LORazepam 2 MG/ML, 1ML IVPush PRN (01:30)
[2018-06-08] MEDS ORDERED: DIPHENHYDRAMINE 50 MG/ML, 1ML IVPush PRN (02:00)
[2018-06-08] MEDS: NS + 20MEQ KCL 1,000 ML IV SCH ×3 (03:00→23:19)
[2018-06-08] MEDS: AMPICILLIN/SULBACTAM 3 GM in SODIUM CHLORIDE 0.9% 100 ML IV SCH ×4 (04:30→22:33)
[2018-06-08 04:39] LABS: BASOPHILS # (AUTO) 0.02 x10^3/uL (0-0.1); EOSINOPHILS # (AUTO) 0.01 x10^3/uL (0-0.4); MD NO; NEUTROPHILS % (AUTO) 71 % (42-75)
[2018-06-08 04:48] LABS: CHLORIDE 109 mmol/L (98-107)
[2018-06-08 04:57] LABS: BASOPHILS % (AUTO) 0 % (0-1); EOSINOPHILS % (AUTO) 0 % (1-7); LYMPHOCYTES # (AUTO) 1.72 x10^3/uL (1-3.4); LYMPHOCYTES % (AUTO) 22 % (22-44); MEAN CORPUSCULAR HEMOGLOBIN 35.2 pg (27.5-34.5); MEAN CORPUSCULAR HGB CONC 34.3 g/dL (33.2-36.2); MEAN CORPUSCULAR VOLUME 102.6 fL (81-97); MEAN PLATELET VOLUME 7.9 fL (7.4-10.4); MONOCYTES # (AUTO) 0.45 x10^3/uL (0.2-0.8); MONOCYTES % (AUTO) 6 % (2-9); NEUTROPHILS # (AUTO) 5.47 x10^3/uL (1.8-6.8); PLATELET COUNT 401 x10^3/uL (130-400); RED BLOOD COUNT 3.63 x10^6/uL (4.38-5.82); RED CELL DISTRIBUTION WIDTH 14.1 % (9.4-14.8)
[2018-06-08 05:07] VITALS: BP 162/95
[2018-06-08 05:19] LABS: ALANINE AMINOTRANSFERASE 48 U/L (12-78); ALBUMIN 2.2 g/dL (3.4-5.0); ALKALINE PHOSPHATASE 164 U/L (45-117); ANION GAP 9 mmol/L (5-15); BILIRUBIN,TOTAL 0.5 mg/dL (0.2-1.0); CREATININE 0.64 mg/dL (0.7-1.3); THYROID STIMULATING HORMONE 0.981 mIU/L (0.358-3.740); TOTAL PROTEIN 6.5 g/dL (6.4-8.2)
[2018-06-08] MEDS: METOPROLOL TARTRATE 50 MG TABLET PO SCH (05:58)
[2018-06-08] MEDS: THIAMINE 100MG TABLET PO SCH (09:00)
[2018-06-08] MEDS: PANTOPRAZOLE 40 MG IV IVPush SCH (09:01)
[2018-06-08] MEDS: MULTIVITAMINS/MINERALS TABLET PO SCH (09:01)
[2018-06-08] MEDS: FOLIC ACID 1 MG TABLET PO SCH (09:01)
[2018-06-08] MEDS: PHENOBARBITAL 20 MG/5 ML ORAL SOL PO SCH ×2 (10:59→22:34)
[2018-06-08] MEDS: ENOXAPARIN 40 MG/0.4 ML SQ SCH (11:00)
[2018-06-08 13:32] LABS: CLOSTRIDIUM DIFFICILE TOXIN NEGATIVE (Negative)
[2018-06-08 13:34] LABS: CLOSTRIDIUM DIFFICILE ANTIGEN POSITIVE
[2018-06-08] MEDS: VANCOMYCIN 50 MG/ML ORAL SUSP PO SCH (19:30)
[2018-06-08] MEDS: DIPHENHYDRAMINE 50 MG/ML, 1ML IVPush PRN (23:59)
[2018-06-09] MEDS: VANCOMYCIN 50 MG/ML ORAL SUSP PO SCH ×4 (01:16→18:25)
[2018-06-09] MEDS: AMPICILLIN/SULBACTAM 3 GM in SODIUM CHLORIDE 0.9% 100 ML IV SCH ×4 (04:28→22:16)
[2018-06-09 04:43] LABS: BASOPHILS # (AUTO) 0.02 x10^3/uL (0-0.1); BASOPHILS % (AUTO) 0 % (0-1); EOSINOPHILS # (AUTO) 0.02 x10^3/uL (0-0.4); EOSINOPHILS % (AUTO) 0 % (1-7); LYMPHOCYTES # (AUTO) 1.43 x10^3/uL (1-3.4); LYMPHOCYTES % (AUTO) 14 % (22-44); MD NO; MEAN CORPUSCULAR HEMOGLOBIN 35.1 pg (27.5-34.5); MEAN CORPUSCULAR HGB CONC 34.8 g/dL (33.2-36.2); MEAN CORPUSCULAR VOLUME 100.8 fL (81-97); MEAN PLATELET VOLUME 7.4 fL (7.4-10.4); MONOCYTES % (AUTO) 7 % (2-9); NEUTROPHILS # (AUTO) 8.24 x10^3/uL (1.8-6.8); NEUTROPHILS % (AUTO) 79 % (42-75); PLATELET COUNT 477 x10^3/uL (130-400); RED BLOOD COUNT 3.94 x10^6/uL (4.38-5.82); RED CELL DISTRIBUTION WIDTH 13.5 % (9.4-14.8)
[2018-06-09 04:48] LABS: ALBUMIN 2.4 g/dL (3.4-5.0); ANION GAP 11 mmol/L (5-15); CALCIUM 7.9 mg/dL (8.5-10.1); CHLORIDE 104 mmol/L (98-107)
[2018-06-09 04:51] LABS: ALANINE AMINOTRANSFERASE 45 U/L (12-78); ALKALINE PHOSPHATASE 159 U/L (45-117); BILIRUBIN,TOTAL 0.4 mg/dL (0.2-1.0); CREATININE 0.57 mg/dL (0.7-1.3); TOTAL PROTEIN 6.7 g/dL (6.4-8.2)
[2018-06-09] MEDS ORDERED: POTASSIUM CHLORIDE 20 MEQ in DEXTROSE 5% 1,000 ML IV SCH (06:00)
[2018-06-09] MEDS: ONDANSETRON 2MG/ML, 2ML IV PRN (08:15)
[2018-06-09] MEDS: PANTOPRAZOLE 40 MG IV IVPush SCH (08:39)
[2018-06-09] MEDS: THIAMINE 100MG TABLET PO SCH (08:39)
[2018-06-09] MEDS: FOLIC ACID 1 MG TABLET PO SCH (08:39)
[2018-06-09] MEDS: MULTIVITAMINS/MINERALS TABLET PO SCH (08:39)
[2018-06-09] MEDS: PHENOBARBITAL 20 MG/5 ML ORAL SOL PO SCH ×2 (09:19→22:16)
[2018-06-09] MEDS: ENOXAPARIN 40 MG/0.4 ML SQ SCH (11:32)
[2018-06-09] MEDS: ONDANSETRON ODT 4 MG PO PRN (13:40)
[2018-06-09] MEDS ORDERED: MAGNESIUM SULFATE PMX 2GM/50ML 50 ML IV ONE (16:00)
[2018-06-09] MEDS: POTASSIUM CHLORIDE 20 MEQ TAB.ER.PRT PO SCH (18:25)
[2018-06-09 21:07] VITALS: BP 137/86
[2018-06-09] MEDS: QUETIAPINE 25MG TABLET PO SCH (21:16)
[2018-06-10 01:46] VITALS: BP 156/70
[2018-06-10] MEDS: VANCOMYCIN 50 MG/ML ORAL SUSP PO SCH ×4 (01:46→18:31)
[2018-06-10] MEDS: AMPICILLIN/SULBACTAM 3 GM in SODIUM CHLORIDE 0.9% 100 ML IV SCH ×4 (04:01→22:42)
[2018-06-10] MEDS: DIPHENHYDRAMINE 50 MG/ML, 1ML IVPush PRN (05:00)
[2018-06-10 05:11] LABS: CALCIUM 8.1 mg/dL (8.5-10.1); CHLORIDE 106 mmol/L (98-107)
[2018-06-10 05:17] LABS: BASOPHILS # (AUTO) 0.03 x10^3/uL (0-0.1); BASOPHILS % (AUTO) 1 % (0-1); EOSINOPHILS # (AUTO) 0.13 x10^3/uL (0-0.4); EOSINOPHILS % (AUTO) 2 % (1-7); LYMPHOCYTES % (AUTO) 23 % (22-44); MD NO; MEAN CORPUSCULAR HEMOGLOBIN 35.1 pg (27.5-34.5); MEAN CORPUSCULAR HGB CONC 34.5 g/dL (33.2-36.2); MEAN CORPUSCULAR VOLUME 101.8 fL (81-97); MEAN PLATELET VOLUME 7.3 fL (7.4-10.4); MONOCYTES # (AUTO) 0.54 x10^3/uL (0.2-0.8); MONOCYTES % (AUTO) 8 % (2-9); NEUTROPHILS # (AUTO) 4.62 x10^3/uL (1.8-6.8); NEUTROPHILS % (AUTO) 67 % (42-75); PLATELET COUNT 506 x10^3/uL (130-400); RED CELL DISTRIBUTION WIDTH 14.1 % (9.4-14.8)
[2018-06-10 05:18] LABS: ALANINE AMINOTRANSFERASE 40 U/L (12-78); ALBUMIN 2.3 g/dL (3.4-5.0); ALKALINE PHOSPHATASE 131 U/L (45-117); ANION GAP 7 mmol/L (5-15); BILIRUBIN,TOTAL 0.4 mg/dL (0.2-1.0); CREATININE 0.58 mg/dL (0.7-1.3)
[2018-06-10 07:01] VITALS: BP 132/83
[2018-06-10] MEDS: POTASSIUM CHLORIDE 20 MEQ TAB.ER.PRT PO SCH (08:00)
[2018-06-10] MEDS: PANTOPRAZOLE 40 MG IV IVPush SCH (08:00)
[2018-06-10] MEDS: MULTIVITAMINS/MINERALS TABLET PO SCH (08:00)
[2018-06-10] MEDS: THIAMINE 100MG TABLET PO SCH (08:00)
[2018-06-10] MEDS: PHENOBARBITAL 20 MG/5 ML ORAL SOL PO SCH ×2 (11:30→22:42)
[2018-06-10] MEDS: ONDANSETRON 2MG/ML, 2ML IV PRN ×2 (11:30→18:31)
[2018-06-10] MEDS: ENOXAPARIN 40 MG/0.4 ML SQ SCH (11:30)
[2018-06-10] MEDS: FOLIC ACID 1 MG TABLET PO SCH (11:30)
[2018-06-10 13:07] VITALS: BP 136/82
[2018-06-10] MEDS ORDERED: PROMETHAZINE 25 MG/ML, 1ML IM PRN (15:30)
[2018-06-10 18:38] VITALS: BP 114/59
[2018-06-10] MEDS: QUETIAPINE 25MG TABLET PO SCH (21:30)
[2018-06-11 00:36] VITALS: BP 129/78
[2018-06-11] MEDS: VANCOMYCIN 50 MG/ML ORAL SUSP PO SCH (01:19)
[2018-06-11] MEDS: AMPICILLIN/SULBACTAM 3 GM in SODIUM CHLORIDE 0.9% 100 ML IV SCH (04:44)
[2018-06-11] MEDS: ONDANSETRON ODT 4 MG PO PRN (04:49)
== END 2018-06-11 06:43 | disposition left against medical advice (07) | DRG 871 ==
LOC: ED 15:44 → EDIP 19:11 → 5SO 20:24 → CCU 06-07 05:05 → 4WST 06-09 18:37
PROVIDERS: ADMIT Hospitalist; ATTEND Hospitalist
DX: A41.9 Sepsis, unspecified organism (principal); J96.01 Acute respiratory failure with hypoxia; J18.9 Pneumonia, unspecified organism; E43 Unspecified severe protein-calorie malnutrition; J90 Pleural effusion, not elsewhere classified; K92.0 Hematemesis; F11.23 Opioid dependence with withdrawal; F10.231 Alcohol dependence with withdrawal delirium; I48.91 Unspecified atrial fibrillation; F17.210 Nicotine dependence, cigarettes, uncomplicated; F31.9 Bipolar disorder, unspecified; E83.51 Hypocalcemia; E87.6 Hypokalemia; E87.70 Fluid overload, unspecified; D53.9 Nutritional anemia, unspecified; D47.3 Essential (hemorrhagic) thrombocythemia; Z53.21 Procedure and treatment not carried out due to patient leaving prior to being seen by health care provider; Z91.5 Personal history of self-harm; Z91.041 Radiographic dye allergy status; Z82.49 Family history of ischemic heart disease and other diseases of the circulatory system; Z82.5 Family history of asthma and other chronic lower respiratory diseases; Z81.1 Family history of alcohol abuse and dependence; Z71.6 Tobacco abuse counseling; Z68.20 Body mass index [BMI] 20.0-20.9, adult
CPT/HCPCS: 36415; 71045; 71275; 80048; 80053; 80307; 81001; 82607; 83605; 83735; 83880; 84100; 84145; 84443; 85025; 85610; 85730; 87040; 87081; 87324; 87493; 93005; 94640; 96365; 96375; J0295; J0696; J1650; J2405; J2543; J2550; J2560; J3370; J3411; J3480; J3486; J7070; J7620; Q0162; Q9967; C9113; J1200; J2060; J2930; J3475

== ENCOUNTER 2018-06-15 19:59 | Emergency (ER) | payer MEDICARE, MEDICAID ==
[~2018-06-15] VITALS: Ht 167.6 cm; Wt 55.0 kg
[~2018-06-15 19:59] MED LIST changes: +DIPH25CA61 PO
[2018-06-15] MEDS ORDERED: SODIUM CHLORIDE 0.9% 1,000ML IVBOLUS ONE (20:30)
[2018-06-15] MEDS ORDERED: ALBUTEROL/IPRATROPIUM 2.5MG/0.5MG, 3 ML NPPB ONE (20:30)
[2018-06-15] MEDS ORDERED: LORazepam 1MG TABLET PO ONE (21:00)
[2018-06-15 21:08] LABS: ALBUMIN 3.2 g/dL (3.4-5.0); ANION GAP 9 mmol/L (5-15); BASOPHILS # (AUTO) 0.05 x10^3/uL (0-0.1); BASOPHILS % (AUTO) 1 % (0-1); CALCIUM 8.5 mg/dL (8.5-10.1); CHLORIDE 110 mmol/L (98-107); EOSINOPHILS # (AUTO) 0.04 x10^3/uL (0-0.4); EOSINOPHILS % (AUTO) 1 % (1-7); LYMPHOCYTES # (AUTO) 2.26 x10^3/uL (1-3.4); LYMPHOCYTES % (AUTO) 30 % (22-44); MD NO; MEAN CORPUSCULAR HEMOGLOBIN 34.2 pg (27.5-34.5); MEAN CORPUSCULAR HGB CONC 33.8 g/dL (33.2-36.2); MEAN CORPUSCULAR VOLUME 101.2 fL (81-97); MEAN PLATELET VOLUME 6.9 fL (7.4-10.4); MONOCYTES # (AUTO) 0.49 x10^3/uL (0.2-0.8); MONOCYTES % (AUTO) 7 % (2-9); NEUTROPHILS # (AUTO) 4.74 x10^3/uL (1.8-6.8); NEUTROPHILS % (AUTO) 63 % (42-75); PLATELET COUNT 764 x10^3/uL (130-400); RED BLOOD COUNT 4.81 x10^6/uL (4.38-5.82); RED CELL DISTRIBUTION WIDTH 14.8 % (9.4-14.8)
[2018-06-15 21:12] LABS: TROPONIN I < 0.015 ng/mL (0.000-0.045)
[2018-06-15] MEDS ORDERED: ALBUTEROL/IPRATROPIUM 2.5MG/0.5MG, 3 ML ONE (21:23)
[2018-06-15 22:10] VITALS: BP 143/79
== END 2018-06-15 22:43 | disposition home or self-care (01) ==
LOC: ED 22:06
DX: J44.1 Chronic obstructive pulmonary disease with (acute) exacerbation (principal); I10 Essential (primary) hypertension; I48.91 Unspecified atrial fibrillation; F17.200 Nicotine dependence, unspecified, uncomplicated; R00.2 Palpitations; Z91.041 Radiographic dye allergy status
CPT/HCPCS: 36415; 71045; 80048; 82040; 84484; 85025; 93005; 94640; 99285; J7030; J7512; J7620

== ENCOUNTER 2018-06-19 20:44 | Emergency (ER) | payer MEDICARE, MEDICAID ==
[~2018-06-19] VITALS: Ht 167.6 cm; Wt 57.0 kg
[2018-06-19 21:22] VITALS: BP 120/86
== END 2018-06-19 21:54 | disposition home or self-care (01) ==
LOC: ED 21:39
DX: R00.2 Palpitations (principal); I10 Essential (primary) hypertension; J44.9 Chronic obstructive pulmonary disease, unspecified; I48.91 Unspecified atrial fibrillation; Z91.041 Radiographic dye allergy status
CPT/HCPCS: 93005; 99283

== ENCOUNTER 2018-08-17 12:49 | Emergency (ER) | payer MEDICARE, MEDICAID ==
[~2018-08-17] VITALS: Ht 175.3 cm; Wt 59.1 kg
[~2018-08-17 12:49] MED LIST changes: -AMLO2.5T PO; +AMLO2.5T3 PO
[2018-08-17 13:27] VITALS: BP 123/56
[2018-08-17] MEDS ORDERED: DIPHENHYDRAMINE 50 MG CAPSULE ONE (14:28)
[2018-08-17] MEDS ORDERED: DIPHENHYDRAMINE 50 MG CAPSULE PO PRN (14:30)
[2018-08-17] MEDS ORDERED: HYDROmorphone 2 MG/ML, 1ML IVPush PRN (15:00)
[2018-08-17] MEDS ORDERED: THIAMINE 100MG TABLET PO ONE (15:00)
[2018-08-17] MEDS ORDERED: THIAMINE 100MG TABLET ONE (15:04)
== END 2018-08-17 16:40 | disposition home or self-care (01) ==
LOC: ED 14:57
DX: F10.220 Alcohol dependence with intoxication, uncomplicated (principal); J44.9 Chronic obstructive pulmonary disease, unspecified; I48.91 Unspecified atrial fibrillation; I10 Essential (primary) hypertension
CPT/HCPCS: 99283

== ENCOUNTER 2018-08-18 18:38 | Inpatient (IN) | payer MEDICARE, MEDICAID ==
[~2018-08-18] VITALS: Ht 167.6 cm; Wt 55.2 kg
[~2018-08-18 18:38] MED LIST changes: +ETOMIDATE 20 MG/10 ML ONE; +MIDAZOLAM 1 MG/ML, 5ML ONE; +PROPOFOL 10 MG/ML, 100ML IV ONE; +SUCCINYLCHOLINE 20 MG/ML, 10ML ONE
[2018-08-18] MEDS ORDERED: ALBUTEROL/IPRATROPIUM 2.5MG/0.5MG, 3 ML ONE (18:46)
[2018-08-18] MEDS ORDERED: methylPREDNISolone SOD SUCC 125 MG/2 ML ONE (18:48)
[2018-08-18] MEDS ORDERED: LORazepam 2 MG/ML, 1ML ONE ×2 (18:48→20:09)
[2018-08-18] MEDS ORDERED: SODIUM CHLORIDE 0.9% 1,000ML IVBOLUS ONE ×2 (19:00→20:00)
[2018-08-18] MEDS ORDERED: ONDANSETRON 2MG/ML, 2ML ONE (19:00)
[2018-08-18] MEDS ORDERED: methylPREDNISolone SOD SUCC 125 MG/2 ML IVP ONE (19:00)
[2018-08-18] MEDS ORDERED: SODIUM CHLORIDE FLUSH 10ML SYR IVF ONE ×2 (19:00→20:00)
[2018-08-18] MEDS ORDERED: ALBUTEROL/IPRATROPIUM 2.5MG/0.5MG, 3 ML NPPB SCH (19:00)
[2018-08-18] MEDS ORDERED: LORazepam 2 MG/ML, 1ML IVP ONE (19:00)
[2018-08-18] MEDS ORDERED: DEXTROSE 50%, 50ML SYRINGE ONE (19:22)
[2018-08-18 19:28] LABS: MICROSCOPIC INDICATED
[2018-08-18] MEDS ORDERED: ONDANSETRON 2MG/ML, 2ML IVPush ONE (19:30)
[2018-08-18] MEDS ORDERED: DEXTROSE 50%, 50ML SYRINGE IVPush ONE (19:30)
[2018-08-18 19:37] LABS: AMPHETAMINE SCREEN, URINE Negative (Negative); BARBITURATE SCREEN, URINE Negative (Negative); BENZODIAZEPINE SCREEN, URINE Negative (Negative); CANNABINOID SCREEN, URINE Negative (Negative); COCAINE SCREEN, URINE Negative (Negative); METHADONE SCREEN, URINE Positive (Negative); OPIATE SCREEN, URINE Negative (Negative)
[2018-08-18 19:38] LABS: INTERNATIONAL NORMALIZED RATIO 1.03 (0.93-1.1); PROTHROMBIN TIME 10.6 Seconds (9.6-11.5)
[2018-08-18 19:39] LABS: ALANINE AMINOTRANSFERASE 138 U/L (12-78); ALBUMIN 2.6 g/dL (3.4-5.0); ANION GAP 25 mmol/L (5-15); CALCIUM 8.3 mg/dL (8.5-10.1); CHLORIDE 103 mmol/L (98-107); CREATININE 0.42 mg/dL (0.7-1.3); SALICYLATE LEVEL 1.9 mg/dL (2.8-20.0)
[2018-08-18 19:44] LABS: ALKALINE PHOSPHATASE 224 U/L (45-117); BILIRUBIN,TOTAL 1.8 mg/dL (0.2-1.0); TOTAL PROTEIN 6.9 g/dL (6.4-8.2)
[2018-08-18] MEDS ORDERED: CEFTRIAXONE PMX 1GM/50ML 50 ML ONE (19:49)
[2018-08-18 19:50] LABS: ACETAMINOPHEN < 2 mcg/mL (10-30)
[2018-08-18 19:51] LABS: TROPONIN I 0.465 ng/mL (0.000-0.045)
[2018-08-18] MEDS ORDERED: SODIUM CHLORIDE 0.9% 1,000 ML IV ONE (19:54)
[2018-08-18] MEDS ORDERED: CEFTRIAXONE 1,000 MG in SODIUM CHLORIDE 0.9% 50 ML IV ONE (20:00)
[2018-08-18] MEDS ORDERED: MAGNESIUM SULFATE 1 GM, THIAMINE 100 MG, FOLIC ACID 1 MG, MVI ADULT 10 ML in SODIUM CHL... IV ONE (20:00)
[2018-08-18] MEDS ORDERED: CEFTRIAXONE 1,000 MG in SODIUM CHLORIDE 0.9% 100 ML IV ONE (20:00)
[2018-08-18] MEDS ORDERED: ASPIRIN 81 MG TABLET CHEW PO ONE (20:00)
[2018-08-18] MEDS ORDERED: AZITHROMYCIN 500 MG in SODIUM CHLORIDE 0.9% 250 ML IV ONE (20:00)
[2018-08-18] MEDS ORDERED: ASPIRIN 81 MG TABLET EC ONE (20:09)
[2018-08-18] MEDS ORDERED: ASPIRIN 81 MG TABLET CHEW ONE (20:13)
[2018-08-18 20:17] LABS: CULTURE INDICATED? NO
[2018-08-18] MEDS ORDERED: POTASSIUM CHLORIDE 20 MEQ PACKET ONE (20:20)
[2018-08-18] MEDS ORDERED: LORazepam 2 MG/ML, 1ML IVPush PRN (20:30)
[2018-08-18] MEDS ORDERED: POTASSIUM CHLORIDE 20 MEQ TAB.ER.PRT PO ONE (20:30)
[2018-08-18 20:39] LABS: MD YES; MEAN CORPUSCULAR HGB CONC 33.8 g/dL (33.2-36.2); MEAN CORPUSCULAR VOLUME 106.3 fL (81-97); MEAN PLATELET VOLUME 7.1 fL (7.4-10.4); PLATELET COUNT 229 x10^3/uL (130-400); RED BLOOD COUNT 4.19 x10^6/uL (4.38-5.82); RED CELL DISTRIBUTION WIDTH 16.3 % (9.4-14.8)
[2018-08-18 20:47] LABS: BAND#(MANUAL) 2.24 x10^3/uL; BANDS%(MANUAL) 59 % (0-7); LYMPH#(MANUAL) 0.87 x10^3/uL (1-3.4); LYMPHS% (MANUAL) 23 % (22-44); METAMYELOCYTES% (MANUAL) 8 % (0-1); MONOS#(MANUAL) 0.08 x10^3/uL (0.3-2.7); MONOS% (MANUAL) 2 % (2-9); SEGS% (MANUAL) 8 % (42-75)
[2018-08-18 20:48] LABS: <PLATELET ESTIMATE> ADEQUATE; <PLT MORPHOLOGY> NORMAL PLT MORPH; <RBC MORPHOLOGY> NORMAL
[2018-08-18] MEDS ORDERED: AMPICILLIN/SULBACTAM 3 GM in SODIUM CHLORIDE 0.9% 100 ML IV ONE (21:00)
[2018-08-18] MEDS: SODIUM CHLORIDE 0.9% 1,000 ML IV SCH (21:14)
[2018-08-18] MEDS: POTASSIUM CHLORIDE 20 MEQ, MAGNESIUM SULFATE 2 GM, THIAMINE 200 MG, MVI ADULT 10 ML, FO... IV SCH (21:14)
[2018-08-18] MEDS ORDERED: PROPOFOL 100 ML IV PRN (21:20)
[2018-08-18 21:28] LABS: ACETONE, SERUM Large (80mg/dL) mg/dL (Negative)
[2018-08-18 21:30] VITALS: BP 96/62
[2018-08-18] MEDS ORDERED: BISACODYL 10 MG SUPP PR PRN (21:30)
[2018-08-18] MEDS ORDERED: LABETALOL 5MG/ML, 20ML IVPush PRN (21:30)
[2018-08-18] MEDS ORDERED: VANCOMYCIN PER PHARMACY MC PRN (21:30)
[2018-08-18] MEDS ORDERED: DEXTROSE 4 GM TAB.CHEW PO PRN (21:30)
[2018-08-18] MEDS ORDERED: ETOMIDATE 20 MG/10 ML IV ONE (21:30)
[2018-08-18] MEDS ORDERED: GLUCAGON 1 MG IM PRN (21:30)
[2018-08-18] MEDS ORDERED: SUCCINYLCHOLINE 20 MG/ML, 10ML IVPush ONE (21:30)
[2018-08-18] MEDS ORDERED: DEXTROSE 50%, 50ML SYRINGE IVPush PRN (21:30)
[2018-08-18] MEDS: PROPOFOL 100 ML IV PRN (21:50)
[2018-08-18] MEDS ORDERED: VANCOMYCIN 1,100 MG in SODIUM CHLORIDE 0.9% 250 ML IV SCH (22:30)
[2018-08-18] MEDS ORDERED: PHARMACOKINETIC MONITORING MC PRN (22:30)
[2018-08-18] MEDS ORDERED: PHARMACOKINETIC CONSULTATION MC ONE (22:30)
[2018-08-18] MEDS ORDERED: LIDOCAINE-MPF 1%, 2ML ENDO PRN (22:30)
[2018-08-18 23:26] LABS: TROPONIN I 0.559 ng/mL (0.000-0.045)
[2018-08-18] MEDS ORDERED: SODIUM BICARB 8.4%, 50ML SYRINGE IVPush ONE (23:30)
[2018-08-18] MEDS: FAMOTIDINE 20 MG/2 ML IVPush SCH (23:51)
[2018-08-18] MEDS: PIPERACILLIN/TAZO/PMX 3.375GM 50 ML IV SCH (23:52)
[2018-08-18] MEDS: ENOXAPARIN 40 MG/0.4 ML SQ SCH (23:52)
[2018-08-19] MEDS: PROPOFOL 100 ML IV PRN ×3 (02:31→15:03)
[2018-08-19] MEDS: SODIUM CHLORIDE 0.9% 1,000 ML IV SCH (03:54)
[2018-08-19] MEDS: POTASSIUM CHLORIDE 20 MEQ, MAGNESIUM SULFATE 2 GM, THIAMINE 200 MG, MVI ADULT 10 ML, FO... IV SCH (04:05)
[2018-08-19 04:27] LABS: MEAN CORPUSCULAR HEMOGLOBIN 35.5 pg (27.5-34.5); MEAN CORPUSCULAR HGB CONC 33.7 g/dL (33.2-36.2); MEAN CORPUSCULAR VOLUME 105.2 fL (81-97); MEAN PLATELET VOLUME 7.2 fL (7.4-10.4); PLATELET COUNT 188 x10^3/uL (130-400); RED BLOOD COUNT 3.59 x10^6/uL (4.38-5.82); RED CELL DISTRIBUTION WIDTH 15.9 % (9.4-14.8)
[2018-08-19 04:32] LABS: MD YES
[2018-08-19 04:33] LABS: ALBUMIN 1.7 g/dL (3.4-5.0); ANION GAP 19 mmol/L (5-15); CALCIUM 7.5 mg/dL (8.5-10.1); CHLORIDE 111 mmol/L (98-107)
[2018-08-19 04:38] LABS: ALANINE AMINOTRANSFERASE 104 U/L (12-78); ALKALINE PHOSPHATASE 145 U/L (45-117); BILIRUBIN,TOTAL 1.7 mg/dL (0.2-1.0); CREATININE 0.47 mg/dL (0.7-1.3); TOTAL PROTEIN 5.4 g/dL (6.4-8.2)
[2018-08-19] MEDS: PIPERACILLIN/TAZO/PMX 3.375GM 50 ML IV SCH ×4 (04:43→20:38)
[2018-08-19 04:52] LABS: TROPONIN I 0.425 ng/mL (0.000-0.045)
[2018-08-19 04:57] VITALS: BP 97/60
[2018-08-19 05:19] LABS: BAND#(MANUAL) 1.57 x10^3/uL; BANDS%(MANUAL) 56 % (0-7); LYMPH#(MANUAL) 0.42 x10^3/uL (1-3.4); LYMPHS% (MANUAL) 15 % (22-44); METAMYELOCYTES# (MANUAL) 0.17 x10^3/uL (0-0); METAMYELOCYTES% (MANUAL) 6 % (0-1); MONOS#(MANUAL) 0.17 x10^3/uL (0.3-2.7); MONOS% (MANUAL) 6 % (2-9); MYELOCYTES# (MANUAL) 0.08 x10^3/uL (0-0); MYELOCYTES% (MANUAL) 3 % (0-0); REACTIVE LYMPHS # (MANUAL) 0.06 x10^3/uL (0-0); REACTIVE LYMPHS % (MANUAL) 2 % (0-0); SEG#(MANUAL) 0.34 x10^3/uL (1.8-6.8); SEGS% (MANUAL) 12 % (42-75)
[2018-08-19 05:20] LABS: ANISOCYTOSIS 1+
[2018-08-19 05:21] LABS: <PLATELET ESTIMATE> ADEQUATE; <PLT MORPHOLOGY> NORMAL PLT MORPH
[2018-08-19] MEDS: FAMOTIDINE 20 MG/2 ML IVPush SCH ×2 (08:38→20:37)
[2018-08-19] MEDS: SODIUM CHLORIDE FLUSH 10ML SYR IVF SCH ×2 (08:38→20:37)
[2018-08-19] MEDS: MIDAZOLAM HCL 25 MG in SODIUM CHLORIDE 0.9% 245 ML IV PRN ×2 (09:04→20:57)
[2018-08-19] MEDS ORDERED: POTASSIUM PHOSPHATE 44 MEQ in SODIUM CHLORIDE 0.9% 500 ML IV ONE (09:30)
[2018-08-19] MEDS ORDERED: MAGNESIUM SULFATE PMX 2GM/50ML 50 ML IV ONE (09:30)
[2018-08-19] MEDS: SODIUM CHLORIDE 0.45% 1,000 ML IV SCH ×2 (09:58→19:30)
[2018-08-19 14:30] LABS: CLOSTRIDIUM DIFFICILE ANTIGEN POSITIVE; CLOSTRIDIUM DIFFICILE TOXIN NEGATIVE (Negative)
[2018-08-19] MEDS: ACETAMINOPHEN 650 MG/20.3 ML UDC NG PRN (18:00)
[2018-08-19] MEDS: VANCOMYCIN 1,100 MG in SODIUM CHLORIDE 0.9% 250 ML IV SCH (18:05)
[2018-08-19] MEDS: ENOXAPARIN 40 MG/0.4 ML SQ SCH (20:38)
[2018-08-19] MEDS ORDERED: THIAMINE 200 MG, MVI ADULT 10 ML, FOLIC ACID 1 MG in D5%-0.9% NACL 1,000 ML IV SCH (21:14)
[2018-08-20] MEDS: PIPERACILLIN/TAZO/PMX 3.375GM 50 ML IV SCH ×4 (02:55→21:31)
[2018-08-20 05:12] LABS: MEAN PLATELET VOLUME 7.9 fL (7.4-10.4); PLATELET COUNT 154 x10^3/uL (130-400); RED BLOOD COUNT 3.01 x10^6/uL (4.38-5.82); RED CELL DISTRIBUTION WIDTH 16.6 % (9.4-14.8)
[2018-08-20 05:18] LABS: ALBUMIN 1.5 g/dL (3.4-5.0); ANION GAP 14 mmol/L (5-15); CHLORIDE 115 mmol/L (98-107)
[2018-08-20 05:23] LABS: ALANINE AMINOTRANSFERASE 73 U/L (12-78); ALKALINE PHOSPHATASE 125 U/L (45-117); BILIRUBIN,TOTAL 1.2 mg/dL (0.2-1.0); CREATININE 0.46 mg/dL (0.7-1.3)
[2018-08-20] MEDS: SODIUM CHLORIDE 0.45% 1,000 ML IV SCH (05:30)
[2018-08-20 05:37] LABS: MD YES
[2018-08-20 05:40] LABS: MONOS#(MANUAL) 0.05 x10^3/uL (0.3-2.7); MONOS% (MANUAL) 1 % (2-9)
[2018-08-20 05:41] LABS: METAMYELOCYTES% (MANUAL) 2 % (0-1)
[2018-08-20 05:43] LABS: BAND#(MANUAL) 1.82 x10^3/uL; BANDS%(MANUAL) 38 % (0-7); LYMPH#(MANUAL) 0.34 x10^3/uL (1-3.4); LYMPHS% (MANUAL) 7 % (22-44); SEGS% (MANUAL) 52 % (42-75)
[2018-08-20 05:44] LABS: ANISOCYTOSIS 1+; PMNS WITH VACUOLES 1+
[2018-08-20 05:45] LABS: <PLATELET ESTIMATE> ADEQUATE; <PLT MORPHOLOGY> NORMAL PLT MORPH
[2018-08-20] MEDS ORDERED: POTASSIUM CHLORIDE 10% 40 MEQ/30 ML UDC PO ONE ×2 (06:00→07:00)
[2018-08-20] MEDS ORDERED: AMIODARONE 900 MG in DEXTROSE 5% 482 ML IV PRN (06:30)
[2018-08-20] MEDS ORDERED: MAGNESIUM SULFATE PMX 2GM/50ML 50 ML IV ONE (07:00)
[2018-08-20] MEDS ORDERED: POTASSIUM PHOSPHATE 44 MEQ in SODIUM CHLORIDE 0.9% 500 ML IV ONE (07:00)
[2018-08-20] MEDS ORDERED: FILTER 0.22 MICRON IV PRN (07:00)
[2018-08-20] MEDS ORDERED: AMIODARONE 150 MG in DEXTROSE 5% 100 ML IV ONE ×2 (07:00→16:00)
[2018-08-20] MEDS ORDERED: PHARMACY INSTRUCTION MC PRN ×4 (08:30)
[2018-08-20] MEDS ORDERED: PHENOBARBITAL SODIUM 640 MG in SODIUM CHLORIDE 0.9% 50 ML IVPB ONE (08:30)
[2018-08-20] MEDS ORDERED: PHENOBARBITAL SODIUM IV ONE ×2 (08:30→11:30)
[2018-08-20] MEDS ORDERED: SODIUM CHLORIDE 0.9% IV ONE ×2 (08:30→11:30)
[2018-08-20] MEDS ORDERED: THIAMINE 100MG TABLET PO SCH (09:00)
[2018-08-20] MEDS: FOLIC ACID 1 MG TABLET PO SCH (09:04)
[2018-08-20] MEDS: SODIUM CHLORIDE FLUSH 10ML SYR IVF SCH ×2 (09:04→21:31)
[2018-08-20] MEDS: FAMOTIDINE 20 MG/2 ML IVPush SCH ×2 (09:04→21:31)
[2018-08-20] MEDS: DEXTROSE 5% 1,000 ML IV SCH ×2 (09:04→18:07)
[2018-08-20] MEDS: VANCOMYCIN 1,100 MG in SODIUM CHLORIDE 0.9% 250 ML IV SCH (10:12)
[2018-08-20] MEDS: DEXMEDETOMIDINE 200 MCG in SODIUM CHLORIDE 0.9% 48 ML IV PRN ×2 (10:12→15:53)
[2018-08-20 12:14] LABS: OCCULT BLOOD POSITIVE (NEGATIVE)
[2018-08-20] MEDS ORDERED: SODIUM CHLORIDE 0.9%, 500ML IVBOLUS ONE (16:00)
[2018-08-20] MEDS ORDERED: SODIUM CHLORIDE 0.9% 1,000ML IVBOLUS ONE (18:00)
[2018-08-20] MEDS: ACETAMINOPHEN 650 MG/20.3 ML UDC NG PRN (18:06)
[2018-08-20] MEDS ORDERED: NOREPINEPHRINE 1 MG/ML, 4ML ONE (18:35)
[2018-08-20] MEDS ORDERED: NOREPINEPHRINE 4 MG in SODIUM CHLORIDE 0.9% 246 ML IV PRN (19:00)
[2018-08-20] MEDS ORDERED: MIDAZOLAM 1 MG/ML, 5ML ONE (19:18)
[2018-08-20] MEDS ORDERED: MIDAZOLAM 1 MG/ML, 5ML IVPush ONE (19:30)
[2018-08-20] MEDS: PHENOBARBITAL SODIUM 65 MG/ML, 1ML IM SCH (21:00)
[2018-08-20] MEDS: ENOXAPARIN 40 MG/0.4 ML SQ SCH (21:30)
[2018-08-21] MEDS: DEXMEDETOMIDINE 200 MCG in SODIUM CHLORIDE 0.9% 48 ML IV PRN ×4 (01:30→19:47)
[2018-08-21] MEDS: PHENOBARBITAL SODIUM 65 MG/ML, 1ML IM SCH ×2 (01:37→13:48)
[2018-08-21] MEDS: PIPERACILLIN/TAZO/PMX 3.375GM 50 ML IV SCH (04:26)
[2018-08-21 04:59] LABS: ALANINE AMINOTRANSFERASE 145 U/L (12-78); ALBUMIN 1.5 g/dL (3.4-5.0); ANION GAP 12 mmol/L (5-15); CALCIUM 7.8 mg/dL (8.5-10.1); CHLORIDE 112 mmol/L (98-107); CREATININE 0.65 mg/dL (0.7-1.3); TRIGLYCERIDES 126 mg/dL (50-200)
[2018-08-21] MEDS: VANCOMYCIN 1,100 MG in SODIUM CHLORIDE 0.9% 250 ML IV SCH (04:59)
[2018-08-21 05:06] LABS: ALKALINE PHOSPHATASE 193 U/L (45-117); TOTAL PROTEIN 5.3 g/dL (6.4-8.2); VANCOMYCIN,TROUGH 5.8 mcg/mL (5.0-10.0)
[2018-08-21 05:44] LABS: MD YES; MEAN CORPUSCULAR HEMOGLOBIN 35.3 pg (27.5-34.5); MEAN CORPUSCULAR HGB CONC 33.2 g/dL (33.2-36.2); MEAN CORPUSCULAR VOLUME 106.2 fL (81-97); MEAN PLATELET VOLUME 8.7 fL (7.4-10.4); PLATELET COUNT 137 x10^3/uL (130-400); RED BLOOD COUNT 3.34 x10^6/uL (4.38-5.82); RED CELL DISTRIBUTION WIDTH 16.1 % (9.4-14.8)
[2018-08-21 05:47] LABS: <PLATELET ESTIMATE> ADEQUATE; <PLT MORPHOLOGY> NORMAL PLT MORPH; ANISOCYTOSIS 1+; BAND#(MANUAL) 0.25 x10^3/uL; BANDS%(MANUAL) 4 % (0-7); LYMPH#(MANUAL) 0.82 x10^3/uL (1-3.4); LYMPHS% (MANUAL) 13 % (22-44); MONOS#(MANUAL) 0.38 x10^3/uL (0.3-2.7); MONOS% (MANUAL) 6 % (2-9); PMNS WITH VACUOLES 1+; SEG#(MANUAL) 4.85 x10^3/uL (1.8-6.8); SEGS% (MANUAL) 77 % (42-75); TOXIC GRAN 1+
[2018-08-21] MEDS ORDERED: SODIUM PHOSPHATE 20 MMOL in SODIUM CHLORIDE 0.9% 500 ML IV ONE (07:30)
[2018-08-21] MEDS ORDERED: MAGNESIUM SULFATE PMX 2GM/50ML 50 ML IV ONE (07:30)
[2018-08-21] MEDS: CEFTRIAXONE PMX 2GM/50ML 50 ML IV SCH (08:37)
[2018-08-21] MEDS: THIAMINE 200 MG in SODIUM CHLORIDE 0.9% 50 ML IV SCH (08:37)
[2018-08-21] MEDS: SODIUM CHLORIDE FLUSH 10ML SYR IVF SCH ×2 (08:38→21:25)
[2018-08-21] MEDS: VANCOMYCIN 50 MG/ML ORAL SUSP PO SCH ×3 (08:38→19:50)
[2018-08-21] MEDS: FAMOTIDINE 20 MG/2 ML IVPush SCH ×2 (09:10→21:25)
[2018-08-21] MEDS: FOLIC ACID 1 MG TABLET PO SCH (09:11)
[2018-08-21] MEDS: DEXTROSE 5% 1,000 ML IV SCH ×2 (10:30→23:19)
[2018-08-21] MEDS: ENOXAPARIN 40 MG/0.4 ML SQ SCH (21:30)
[2018-08-21] MEDS: DEXMEDETOMIDINE 400 MCG in SODIUM CHLORIDE 0.9% 100 ML IV PRN (22:18)
[2018-08-22] MEDS: PHENOBARBITAL SODIUM 65 MG/ML, 1ML IM SCH (01:12)
[2018-08-22] MEDS: DEXMEDETOMIDINE 400 MCG in SODIUM CHLORIDE 0.9% 100 ML IV PRN ×3 (02:31→17:39)
[2018-08-22] MEDS: VANCOMYCIN 50 MG/ML ORAL SUSP PO SCH ×4 (02:52→20:01)
[2018-08-22 05:47] LABS: MD YES
[2018-08-22 05:48] LABS: MEAN CORPUSCULAR HEMOGLOBIN 34.7 pg (27.5-34.5); MEAN CORPUSCULAR HGB CONC 33.1 g/dL (33.2-36.2); MEAN CORPUSCULAR VOLUME 104.8 fL (81-97); MEAN PLATELET VOLUME 10.4 fL (7.4-10.4); PLATELET COUNT 165 x10^3/uL (130-400); RED BLOOD COUNT 3.35 x10^6/uL (4.38-5.82)
[2018-08-22 05:50] LABS: BAND#(MANUAL) 0.26 x10^3/uL; BANDS%(MANUAL) 4 % (0-7); LYMPH#(MANUAL) 0.85 x10^3/uL (1-3.4); LYMPHS% (MANUAL) 13 % (22-44); METAMYELOCYTES# (MANUAL) 0.07 x10^3/uL (0-0); METAMYELOCYTES% (MANUAL) 1 % (0-1); MONOS#(MANUAL) 0.39 x10^3/uL (0.3-2.7); MONOS% (MANUAL) 6 % (2-9); MYELOCYTES# (MANUAL) 0.07 x10^3/uL (0-0); MYELOCYTES% (MANUAL) 1 % (0-0); NRBC % (MANUAL) 1 % (0-1); SEG#(MANUAL) 4.88 x10^3/uL (1.8-6.8); SEGS% (MANUAL) 75 % (42-75)
[2018-08-22 05:51] LABS: ANISOCYTOSIS 1+
[2018-08-22 05:52] LABS: <PLATELET ESTIMATE> ADEQUATE; <PLT MORPHOLOGY> NORMAL PLT MORPH; TOXIC GRAN 1+
[2018-08-22] MEDS: FOLIC ACID 1 MG TABLET PO SCH (08:21)
[2018-08-22] MEDS: CEFTRIAXONE PMX 2GM/50ML 50 ML IV SCH (08:21)
[2018-08-22] MEDS: FUROSEMIDE 20 MG/2 ML IV SCH ×2 (08:22→21:14)
[2018-08-22] MEDS: FAMOTIDINE 20 MG/2 ML IVPush SCH ×2 (08:22→21:14)
[2018-08-22] MEDS: HEPARIN 5,000 UNITS/ML, 1ML SQ SCH ×2 (08:22→16:00)
[2018-08-22] MEDS: SODIUM CHLORIDE FLUSH 10ML SYR IVF SCH ×2 (08:23→21:14)
[2018-08-22] MEDS: THIAMINE 200 MG in SODIUM CHLORIDE 0.9% 50 ML IV SCH (08:27)
[2018-08-22] MEDS: ACETAMINOPHEN 650 MG/20.3 ML UDC NG PRN (23:03)
[2018-08-23] MEDS: DEXMEDETOMIDINE 400 MCG in SODIUM CHLORIDE 0.9% 100 ML IV PRN (00:09)
[2018-08-23] MEDS: HEPARIN 5,000 UNITS/ML, 1ML SQ SCH ×3 (00:46→17:55)
[2018-08-23] MEDS: VANCOMYCIN 50 MG/ML ORAL SUSP PO SCH ×4 (01:25→20:53)
[2018-08-23 05:01] LABS: CHLORIDE 103 mmol/L (98-107)
[2018-08-23 05:04] LABS: MEAN CORPUSCULAR HEMOGLOBIN 34.7 pg (27.5-34.5); MEAN CORPUSCULAR HGB CONC 33.6 g/dL (33.2-36.2); MEAN CORPUSCULAR VOLUME 103.3 fL (81-97); MEAN PLATELET VOLUME 10.5 fL (7.4-10.4); PLATELET COUNT 261 x10^3/uL (130-400); RED CELL DISTRIBUTION WIDTH 15.9 % (9.4-14.8)
[2018-08-23 05:10] LABS: ALANINE AMINOTRANSFERASE 123 U/L (12-78); ALBUMIN 1.4 g/dL (3.4-5.0); ALKALINE PHOSPHATASE 211 U/L (45-117); ANION GAP 9 mmol/L (5-15); CALCIUM 8.1 mg/dL (8.5-10.1); CREATININE 0.55 mg/dL (0.7-1.3); TOTAL PROTEIN 5.8 g/dL (6.4-8.2)
[2018-08-23 05:26] LABS: BASOPHILS # (AUTO) 0.02 x10^3/uL (0-0.1); BASOPHILS % (AUTO) 0 % (0-1); EOSINOPHILS % (AUTO) 0 % (1-7); LYMPHOCYTES # (AUTO) 0.65 x10^3/uL (1-3.4); LYMPHOCYTES % (AUTO) 11 % (22-44); MD SCAN; MONOCYTES # (AUTO) 0.28 x10^3/uL (0.2-0.8); MONOCYTES % (AUTO) 5 % (2-9); NEUTROPHILS # (AUTO) 5.17 x10^3/uL (1.8-6.8); NEUTROPHILS % (AUTO) 84 % (42-75)
[2018-08-23] MEDS: CEFTRIAXONE PMX 2GM/50ML 50 ML IV SCH (08:26)
[2018-08-23] MEDS: FUROSEMIDE 20 MG/2 ML IV SCH ×2 (09:44→20:52)
[2018-08-23] MEDS: FOLIC ACID 1 MG TABLET PO SCH (09:44)
[2018-08-23] MEDS: FAMOTIDINE 20 MG/2 ML IVPush SCH ×2 (09:44→20:53)
[2018-08-23] MEDS: POTASSIUM CHLORIDE 10% 40 MEQ/30 ML UDC PO SCH ×2 (09:44→20:53)
[2018-08-23] MEDS: SODIUM CHLORIDE FLUSH 10ML SYR IVF SCH ×2 (09:45→20:53)
[2018-08-23] MEDS: THIAMINE 200 MG in SODIUM CHLORIDE 0.9% 50 ML IV SCH (12:26)
[2018-08-23 19:46] VITALS: BP 153/66
[2018-08-23] MEDS ORDERED: POTASSIUM CHLORIDE 20 MEQ TAB.ER.PRT ONE (20:43)
[2018-08-24 01:32] VITALS: BP 149/70
[2018-08-24] MEDS: HEPARIN 5,000 UNITS/ML, 1ML SQ SCH ×3 (01:34→17:32)
[2018-08-24] MEDS: VANCOMYCIN 50 MG/ML ORAL SUSP PO SCH ×4 (03:24→21:00)
[2018-08-24 04:11] LABS: BASOPHILS # (AUTO) 0.02 x10^3/uL (0-0.1); BASOPHILS % (AUTO) 0 % (0-1); EOSINOPHILS % (AUTO) 0 % (1-7); LYMPHOCYTES # (AUTO) 1.03 x10^3/uL (1-3.4); LYMPHOCYTES % (AUTO) 13 % (22-44); MD NO; MEAN CORPUSCULAR HEMOGLOBIN 35.2 pg (27.5-34.5); MEAN CORPUSCULAR HGB CONC 33.9 g/dL (33.2-36.2); MEAN CORPUSCULAR VOLUME 103.8 fL (81-97); MEAN PLATELET VOLUME 9.3 fL (7.4-10.4); MONOCYTES # (AUTO) 0.61 x10^3/uL (0.2-0.8); MONOCYTES % (AUTO) 8 % (2-9); NEUTROPHILS # (AUTO) 6.22 x10^3/uL (1.8-6.8); NEUTROPHILS % (AUTO) 79 % (42-75); PLATELET COUNT 394 x10^3/uL (130-400)
[2018-08-24 04:17] LABS: ALBUMIN 1.5 g/dL (3.4-5.0); CALCIUM 8.2 mg/dL (8.5-10.1)
[2018-08-24 04:20] LABS: ALANINE AMINOTRANSFERASE 122 U/L (12-78); ALKALINE PHOSPHATASE 249 U/L (45-117); BILIRUBIN,TOTAL 1.1 mg/dL (0.2-1.0); CREATININE 0.41 mg/dL (0.7-1.3); TOTAL PROTEIN 5.8 g/dL (6.4-8.2)
[2018-08-24 04:24] LABS: ANION GAP 12 mmol/L (5-15); CHLORIDE 100 mmol/L (98-107)
[2018-08-24] MEDS: POTASSIUM CHLORIDE 20 MEQ TAB.ER.PRT PO SCH ×3 (05:47→17:32)
[2018-08-24] MEDS ORDERED: POTASSIUM CHLORIDE 20 MEQ in SODIUM CHLORIDE 0.9% 250 ML IV ONE (06:00)
[2018-08-24 06:39] VITALS: BP 132/72
[2018-08-24] MEDS: CEFTRIAXONE PMX 2GM/50ML 50 ML IV SCH (08:34)
[2018-08-24] MEDS: FAMOTIDINE 20 MG/2 ML IVPush SCH ×2 (08:42→21:46)
[2018-08-24] MEDS: SODIUM CHLORIDE FLUSH 10ML SYR IVF SCH ×2 (08:43→21:46)
[2018-08-24] MEDS: FOLIC ACID 1 MG TABLET PO SCH (08:47)
[2018-08-24] MEDS: FUROSEMIDE 20 MG/2 ML IV SCH ×2 (09:01→21:00)
[2018-08-24] MEDS: THIAMINE 200 MG in SODIUM CHLORIDE 0.9% 50 ML IV SCH (09:39)
[2018-08-24 12:48] VITALS: BP 143/69
[2018-08-24] MEDS: LORazepam 0.5MG TABLET PO PRN ×2 (14:21→21:45)
[2018-08-24 19:34] VITALS: BP 159/82
[2018-08-25 01:20] VITALS: BP 151/72
[2018-08-25] MEDS: HEPARIN 5,000 UNITS/ML, 1ML SQ SCH ×3 (02:23→17:25)
[2018-08-25] MEDS: VANCOMYCIN 50 MG/ML ORAL SUSP PO SCH ×2 (02:23→08:03)
[2018-08-25 05:26] LABS: ALANINE AMINOTRANSFERASE 90 U/L (12-78); ALBUMIN 1.8 g/dL (3.4-5.0); ANION GAP 10 mmol/L (5-15); CALCIUM 8.3 mg/dL (8.5-10.1); CHLORIDE 103 mmol/L (98-107); CREATININE 0.45 mg/dL (0.7-1.3)
[2018-08-25 05:28] LABS: ALKALINE PHOSPHATASE 219 U/L (45-117); BILIRUBIN,TOTAL 0.9 mg/dL (0.2-1.0); TOTAL PROTEIN 6.4 g/dL (6.4-8.2)
[2018-08-25] MEDS ORDERED: POTASSIUM CHLORIDE 20 MEQ TAB.ER.PRT PO ONE ×2 (06:00→15:00)
[2018-08-25] MEDS: LORazepam 0.5MG TABLET PO PRN ×3 (06:08→21:25)
[2018-08-25 06:53] VITALS: BP 159/76
[2018-08-25] MEDS: CEFTRIAXONE PMX 2GM/50ML 50 ML IV SCH (08:01)
[2018-08-25] MEDS: FAMOTIDINE 20 MG/2 ML IVPush SCH ×2 (08:02→19:59)
[2018-08-25] MEDS: SODIUM CHLORIDE FLUSH 10ML SYR IVF SCH ×2 (08:02→20:00)
[2018-08-25] MEDS: POTASSIUM CHLORIDE 20 MEQ TAB.ER.PRT PO SCH ×2 (08:02→17:25)
[2018-08-25] MEDS: FOLIC ACID 1 MG TABLET PO SCH (08:02)
[2018-08-25] MEDS: FUROSEMIDE 20 MG/2 ML IV SCH (09:00)
[2018-08-25] MEDS: THIAMINE 200 MG in SODIUM CHLORIDE 0.9% 50 ML IV SCH (09:00)
[2018-08-25] MEDS: THIAMINE 100MG TABLET PO SCH (12:00)
[2018-08-25 12:54] VITALS: BP 162/78
[2018-08-25 18:58] VITALS: BP 143/75
[2018-08-26] VITALS (9 sets, daily range): BP systolic 119–166; BP diastolic 72–92
[2018-08-26] MEDS: HEPARIN 5,000 UNITS/ML, 1ML SQ SCH ×3 (01:45→17:45)
[2018-08-26] MEDS: LORazepam 0.5MG TABLET PO PRN ×3 (03:13→20:35)
[2018-08-26 06:01] LABS: CHLORIDE 110 mmol/L (98-107)
[2018-08-26 06:11] LABS: ALANINE AMINOTRANSFERASE 75 U/L (12-78); ALKALINE PHOSPHATASE 235 U/L (45-117); ANION GAP 9 mmol/L (5-15); BILIRUBIN,TOTAL 0.8 mg/dL (0.2-1.0); CALCIUM 8.7 mg/dL (8.5-10.1); CREATININE 0.51 mg/dL (0.7-1.3); TOTAL PROTEIN 6.7 g/dL (6.4-8.2)
[2018-08-26] MEDS: POTASSIUM CHLORIDE 20 MEQ TAB.ER.PRT PO SCH ×2 (08:39→17:00)
[2018-08-26] MEDS: CEFTRIAXONE PMX 2GM/50ML 50 ML IV SCH (08:39)
[2018-08-26] MEDS: THIAMINE 100MG TABLET PO SCH (08:39)
[2018-08-26] MEDS: FOLIC ACID 1 MG TABLET PO SCH (08:40)
[2018-08-26] MEDS: SODIUM CHLORIDE FLUSH 10ML SYR IVF SCH ×2 (08:40→20:36)
[2018-08-26] MEDS ORDERED: POTASSIUM CHLORIDE 20 MEQ TAB.ER.PRT PO ONE (11:30)
[2018-08-27] MEDS: HEPARIN 5,000 UNITS/ML, 1ML SQ SCH ×3 (01:46→17:14)
[2018-08-27] MEDS: LORazepam 0.5MG TABLET PO PRN ×3 (01:53→20:22)
[2018-08-27 03:33] LABS: INTERNATIONAL NORMALIZED RATIO 1.01 (0.93-1.1); PROTHROMBIN TIME 10.5 Seconds (9.6-11.5)
[2018-08-27 03:36] LABS: ALANINE AMINOTRANSFERASE 61 U/L (12-78); ALBUMIN 2.1 g/dL (3.4-5.0); ANION GAP 11 mmol/L (5-15); CALCIUM 8.1 mg/dL (8.5-10.1); CHLORIDE 105 mmol/L (98-107); CREATININE 0.52 mg/dL (0.7-1.3)
[2018-08-27 03:38] LABS: ALKALINE PHOSPHATASE 232 U/L (45-117); BILIRUBIN,TOTAL 0.8 mg/dL (0.2-1.0); TOTAL PROTEIN 7.4 g/dL (6.4-8.2)
[2018-08-27 03:45] LABS: MEAN CORPUSCULAR HEMOGLOBIN 34.7 pg (27.5-34.5); MEAN CORPUSCULAR HGB CONC 33.4 g/dL (33.2-36.2); MEAN CORPUSCULAR VOLUME 104.2 fL (81-97); MEAN PLATELET VOLUME 8.5 fL (7.4-10.4); PLATELET COUNT 951 x10^3/uL (130-400); RED BLOOD COUNT 3.37 x10^6/uL (4.38-5.82); RED CELL DISTRIBUTION WIDTH 15.6 % (9.4-14.8)
[2018-08-27 03:46] LABS: BASOPHILS # (AUTO) 0.02 x10^3/uL (0-0.1); BASOPHILS % (AUTO) 0 % (0-1); EOSINOPHILS # (AUTO) 0.24 x10^3/uL (0-0.4); EOSINOPHILS % (AUTO) 1 % (1-7); LYMPHOCYTES # (AUTO) 1.28 x10^3/uL (1-3.4); LYMPHOCYTES % (AUTO) 7 % (22-44); MD SCAN; MONOCYTES # (AUTO) 0.85 x10^3/uL (0.2-0.8); MONOCYTES % (AUTO) 5 % (2-9); NEUTROPHILS # (AUTO) 15.28 x10^3/uL (1.8-6.8); NEUTROPHILS % (AUTO) 86 % (42-75)
[2018-08-27] MEDS: VANCOMYCIN 50 MG/ML ORAL SUSP PO SCH ×3 (07:00→21:15)
[2018-08-27 07:31] VITALS: BP 139/84
[2018-08-27] MEDS: SODIUM CHLORIDE FLUSH 10ML SYR IVF SCH ×2 (09:00→20:22)
[2018-08-27] MEDS: LACTOBACILLUS 1GM/ PACKET PO SCH ×3 (09:11→20:22)
[2018-08-27] MEDS: THIAMINE 100MG TABLET PO SCH (09:11)
[2018-08-27] MEDS: FOLIC ACID 1 MG TABLET PO SCH (09:11)
[2018-08-27] MEDS: POTASSIUM CHLORIDE 20 MEQ TAB.ER.PRT PO SCH ×2 (09:11→17:14)
[2018-08-27] MEDS: CEFTRIAXONE PMX 2GM/50ML 50 ML IV SCH (11:10)
[2018-08-27 13:01] VITALS: BP 129/83
[2018-08-27] MEDS: ONDANSETRON 2MG/ML, 2ML IVPush PRN (13:47)
[2018-08-27 20:00] VITALS: BP 116/72
[2018-08-28 01:22] VITALS: BP 118/69
[2018-08-28] MEDS: HEPARIN 5,000 UNITS/ML, 1ML SQ SCH ×3 (01:59→17:19)
[2018-08-28] MEDS: VANCOMYCIN 50 MG/ML ORAL SUSP PO SCH ×4 (03:12→19:54)
[2018-08-28] MEDS: LORazepam 0.5MG TABLET PO PRN ×3 (03:44→21:22)
[2018-08-28 06:55] VITALS: BP 123/80
[2018-08-28 07:11] LABS: ANION GAP 12 mmol/L (5-15); CALCIUM 8.4 mg/dL (8.5-10.1); CHLORIDE 108 mmol/L (98-107); CREATININE 0.61 mg/dL (0.7-1.3)
[2018-08-28 07:25] LABS: MEAN CORPUSCULAR HGB CONC 32.8 g/dL (33.2-36.2); MEAN CORPUSCULAR VOLUME 103.8 fL (81-97); RED BLOOD COUNT 3.78 x10^6/uL (4.38-5.82); RED CELL DISTRIBUTION WIDTH 15.4 % (9.4-14.8)
[2018-08-28 07:30] LABS: BASOPHILS # (AUTO) 0.02 x10^3/uL (0-0.1); BASOPHILS % (AUTO) 0 % (0-1); EOSINOPHILS # (AUTO) 0.11 x10^3/uL (0-0.4); EOSINOPHILS % (AUTO) 1 % (1-7); LYMPHOCYTES # (AUTO) 1.28 x10^3/uL (1-3.4); LYMPHOCYTES % (AUTO) 7 % (22-44); MD MORPH REVIEW ONLY; MEAN PLATELET VOLUME 9.1 fL (7.4-10.4); MONOCYTES # (AUTO) 0.96 x10^3/uL (0.2-0.8); MONOCYTES % (AUTO) 6 % (2-9); NEUTROPHILS # (AUTO) 15.23 x10^3/uL (1.8-6.8); NEUTROPHILS % (AUTO) 87 % (42-75)
[2018-08-28 07:32] LABS: PLATELET COUNT 1056 x10^3/uL (130-400)
[2018-08-28 07:33] LABS: ANISOCYTOSIS 1+
[2018-08-28 07:35] LABS: <PLATELET ESTIMATE> INCREASED; GIANT PLATELETS 1+; LARGE PLATELETS 1+
[2018-08-28] MEDS: POTASSIUM CHLORIDE 20 MEQ TAB.ER.PRT PO SCH ×2 (09:04→17:18)
[2018-08-28] MEDS: SODIUM CHLORIDE FLUSH 10ML SYR IVF SCH ×2 (09:04→19:54)
[2018-08-28] MEDS: FOLIC ACID 1 MG TABLET PO SCH (09:05)
[2018-08-28] MEDS: LACTOBACILLUS 1GM/ PACKET PO SCH ×3 (09:05→19:54)
[2018-08-28] MEDS: THIAMINE 100MG TABLET PO SCH (09:05)
[2018-08-28] MEDS: CEFTRIAXONE PMX 2GM/50ML 50 ML IV SCH (10:52)
[2018-08-28 14:57] VITALS: BP 126/82
[2018-08-28 15:00] VITALS: BP 126/82
[2018-08-28 17:59] LABS: HCT (SEDRATE) 46.6 % (39.2-51.8)
[2018-08-28 19:55] VITALS: BP 125/87
[2018-08-29 01:44] VITALS: BP 136/88
[2018-08-29] MEDS: VANCOMYCIN 50 MG/ML ORAL SUSP PO SCH ×4 (02:41→20:59)
[2018-08-29] MEDS: HEPARIN 5,000 UNITS/ML, 1ML SQ SCH ×3 (02:42→17:44)
[2018-08-29] MEDS: LORazepam 0.5MG TABLET PO PRN ×2 (05:58→15:49)
[2018-08-29 07:23] VITALS: BP 139/86
[2018-08-29] MEDS: POTASSIUM CHLORIDE 20 MEQ TAB.ER.PRT PO SCH ×2 (08:31→15:49)
[2018-08-29] MEDS: SODIUM CHLORIDE FLUSH 10ML SYR IVF SCH ×2 (08:31→21:00)
[2018-08-29] MEDS: THIAMINE 100MG TABLET PO SCH (08:31)
[2018-08-29] MEDS: LACTOBACILLUS 1GM/ PACKET PO SCH ×3 (08:31→20:59)
[2018-08-29] MEDS: FOLIC ACID 1 MG TABLET PO SCH (08:31)
[2018-08-29] MEDS: NYSTATIN 500,000 UNITS/5 ML UDC PO SCH ×3 (10:00→22:00)
[2018-08-29] MEDS: ONDANSETRON 2MG/ML, 2ML IVPush PRN ×2 (12:54→20:59)
[2018-08-29 14:30] VITALS: BP 126/82
[2018-08-29 19:40] VITALS: BP 123/81
[2018-08-30] MEDS: LORazepam 0.5MG TABLET PO PRN ×3 (00:25→17:54)
[2018-08-30 01:28] VITALS: BP 146/77
[2018-08-30] MEDS: NYSTATIN 500,000 UNITS/5 ML UDC PO SCH ×4 (01:48→21:12)
[2018-08-30] MEDS: HEPARIN 5,000 UNITS/ML, 1ML SQ SCH ×3 (01:49→17:53)
[2018-08-30] MEDS: VANCOMYCIN 50 MG/ML ORAL SUSP PO SCH ×4 (01:49→21:12)
[2018-08-30 06:02] LABS: BASOPHILS # (AUTO) 0.01 x10^3/uL (0-0.1); BASOPHILS % (AUTO) 0 % (0-1); EOSINOPHILS # (AUTO) 0.02 x10^3/uL (0-0.4); EOSINOPHILS % (AUTO) 0 % (1-7); LYMPHOCYTES # (AUTO) 0.89 x10^3/uL (1-3.4); LYMPHOCYTES % (AUTO) 6 % (22-44); MD NO; MEAN CORPUSCULAR HEMOGLOBIN 34.7 pg (27.5-34.5); MEAN CORPUSCULAR HGB CONC 33.5 g/dL (33.2-36.2); MEAN CORPUSCULAR VOLUME 103.6 fL (81-97); MEAN PLATELET VOLUME 9.1 fL (7.4-10.4); MONOCYTES % (AUTO) 5 % (2-9); NEUTROPHILS # (AUTO) 14.05 x10^3/uL (1.8-6.8); NEUTROPHILS % (AUTO) 89 % (42-75); PLATELET COUNT 946 x10^3/uL (130-400); RED BLOOD COUNT 4.34 x10^6/uL (4.38-5.82); RED CELL DISTRIBUTION WIDTH 15.3 % (9.4-14.8)
[2018-08-30 06:09] LABS: ANION GAP 13 mmol/L (5-15); CALCIUM 8.8 mg/dL (8.5-10.1); CHLORIDE 104 mmol/L (98-107); CREATININE 0.85 mg/dL (0.7-1.3)
[2018-08-30] MEDS: POTASSIUM CHLORIDE 20 MEQ TAB.ER.PRT PO SCH (08:00)
[2018-08-30 08:18] VITALS: BP 145/95
[2018-08-30] MEDS: LACTOBACILLUS 1GM/ PACKET PO SCH ×3 (08:31→21:11)
[2018-08-30] MEDS: FOLIC ACID 1 MG TABLET PO SCH (08:31)
[2018-08-30] MEDS: THIAMINE 100MG TABLET PO SCH (08:31)
[2018-08-30] MEDS: SODIUM CHLORIDE FLUSH 10ML SYR IVF SCH ×2 (09:52→20:59)
[2018-08-30] MEDS: SODIUM CHLORIDE 0.9% 1,000 ML IV SCH (11:43)
[2018-08-30 14:40] VITALS: BP 137/87
[2018-08-30 19:47] VITALS: BP 133/82
[2018-08-31] MEDS: SODIUM CHLORIDE 0.9% 1,000 ML IV SCH (01:00)
[2018-08-31 01:10] VITALS: BP 149/86
[2018-08-31] MEDS: ONDANSETRON 2MG/ML, 2ML IVPush PRN ×3 (01:40→15:33)
[2018-08-31] MEDS: VANCOMYCIN 50 MG/ML ORAL SUSP PO SCH ×4 (02:51→21:21)
[2018-08-31] MEDS: HEPARIN 5,000 UNITS/ML, 1ML SQ SCH ×2 (02:51→09:36)
[2018-08-31] MEDS: NYSTATIN 500,000 UNITS/5 ML UDC PO SCH ×4 (03:43→21:21)
[2018-08-31 05:41] LABS: BASOPHILS # (AUTO) 0.06 x10^3/uL (0-0.1); BASOPHILS % (AUTO) 1 % (0-1); EOSINOPHILS # (AUTO) 0.03 x10^3/uL (0-0.4); EOSINOPHILS % (AUTO) 0 % (1-7); LYMPHOCYTES # (AUTO) 0.71 x10^3/uL (1-3.4); LYMPHOCYTES % (AUTO) 7 % (22-44); MD NO; MEAN CORPUSCULAR HEMOGLOBIN 34.7 pg (27.5-34.5); MEAN CORPUSCULAR HGB CONC 33.8 g/dL (33.2-36.2); MEAN CORPUSCULAR VOLUME 102.6 fL (81-97); MEAN PLATELET VOLUME 9.1 fL (7.4-10.4); MONOCYTES # (AUTO) 0.71 x10^3/uL (0.2-0.8); MONOCYTES % (AUTO) 7 % (2-9); NEUTROPHILS % (AUTO) 86 % (42-75); PLATELET COUNT 895 x10^3/uL (130-400); RED BLOOD COUNT 3.62 x10^6/uL (4.38-5.82); RED CELL DISTRIBUTION WIDTH 15.3 % (9.4-14.8)
[2018-08-31 05:47] LABS: ALBUMIN 2.2 g/dL (3.4-5.0); ANION GAP 11 mmol/L (5-15); CALCIUM 7.8 mg/dL (8.5-10.1); CHLORIDE 105 mmol/L (98-107)
[2018-08-31 05:52] LABS: ALANINE AMINOTRANSFERASE 37 U/L (12-78); ALKALINE PHOSPHATASE 205 U/L (45-117); BILIRUBIN,TOTAL 0.5 mg/dL (0.2-1.0); CREATININE 0.55 mg/dL (0.7-1.3); TOTAL PROTEIN 7.2 g/dL (6.4-8.2)
[2018-08-31 07:39] VITALS: BP 130/74
[2018-08-31] MEDS: LACTOBACILLUS 1GM/ PACKET PO SCH ×3 (09:35→21:21)
[2018-08-31] MEDS: FOLIC ACID 1 MG TABLET PO SCH (09:35)
[2018-08-31] MEDS: SODIUM CHLORIDE FLUSH 10ML SYR IVF SCH ×2 (09:35→21:25)
[2018-08-31] MEDS: THIAMINE 100MG TABLET PO SCH (09:36)
[2018-08-31] MEDS: LURASIDONE 20 MG TABLET PO SCH (15:33)
[2018-08-31 15:55] VITALS: BP 121/70
[2018-08-31] MEDS: LORazepam 0.5MG TABLET PO PRN (16:54)
[2018-08-31] MEDS: ACETAMINOPHEN 325 MG TABLET PO PRN (16:55)
[2018-08-31 20:13] VITALS: BP 131/72
[2018-09-01] MEDS: ACETAMINOPHEN 325 MG TABLET PO PRN (01:12)
[2018-09-01] MEDS: LORazepam 0.5MG TABLET PO PRN ×3 (01:12→23:17)
[2018-09-01] MEDS: HEPARIN 5,000 UNITS/ML, 1ML SQ SCH ×4 (01:16→23:17)
[2018-09-01 03:09] VITALS: BP 133/78
[2018-09-01] MEDS: VANCOMYCIN 50 MG/ML ORAL SUSP PO SCH ×4 (03:25→20:35)
[2018-09-01] MEDS: NYSTATIN 500,000 UNITS/5 ML UDC PO SCH ×4 (04:00→20:47)
[2018-09-01 08:03] VITALS: BP 134/76
[2018-09-01] MEDS: LACTOBACILLUS 1GM/ PACKET PO SCH ×3 (08:28→20:34)
[2018-09-01] MEDS: ONDANSETRON 2MG/ML, 2ML IVPush PRN ×3 (08:28→20:35)
[2018-09-01] MEDS: FOLIC ACID 1 MG TABLET PO SCH (08:28)
[2018-09-01] MEDS: THIAMINE 100MG TABLET PO SCH (08:28)
[2018-09-01] MEDS: SODIUM CHLORIDE FLUSH 10ML SYR IVF SCH ×2 (08:29→20:34)
[2018-09-01 13:59] VITALS: BP 135/78
[2018-09-01] MEDS: LURASIDONE 20 MG TABLET PO SCH (16:58)
[2018-09-01] MEDS: NICOTINE 14MG/24 HR PATCH.TD24 TD SCH (16:58)
[2018-09-01 19:13] VITALS: BP 132/64
[2018-09-02 00:11] VITALS: BP 123/71
[2018-09-02] MEDS: VANCOMYCIN 50 MG/ML ORAL SUSP PO SCH ×4 (03:06→21:45)
[2018-09-02] MEDS: NYSTATIN 500,000 UNITS/5 ML UDC PO SCH ×4 (03:06→21:45)
[2018-09-02] MEDS: ONDANSETRON 2MG/ML, 2ML IVPush PRN ×4 (03:06→21:45)
[2018-09-02 07:45] VITALS: BP 125/84
[2018-09-02] MEDS: FOLIC ACID 1 MG TABLET PO SCH (08:47)
[2018-09-02] MEDS: LACTOBACILLUS 1GM/ PACKET PO SCH ×3 (08:47→21:45)
[2018-09-02] MEDS: HEPARIN 5,000 UNITS/ML, 1ML SQ SCH ×2 (08:47→18:20)
[2018-09-02] MEDS: LORazepam 0.5MG TABLET PO PRN ×2 (08:47→18:20)
[2018-09-02] MEDS: THIAMINE 100MG TABLET PO SCH (08:47)
[2018-09-02] MEDS: SODIUM CHLORIDE FLUSH 10ML SYR IVF SCH ×2 (08:48→21:45)
[2018-09-02 12:54] VITALS: BP 118/80
[2018-09-02] MEDS: LURASIDONE 20 MG TABLET PO SCH (15:47)
[2018-09-02] MEDS: NICOTINE 14MG/24 HR PATCH.TD24 TD SCH (18:20)
[2018-09-02 19:57] VITALS: BP 122/73
[2018-09-02] MEDS: ONDANSETRON ODT 4 MG PO PRN (23:08)
[2018-09-03 00:52] VITALS: BP 126/81
[2018-09-03] MEDS: ACETAMINOPHEN 325 MG TABLET PO PRN ×2 (01:25→09:47)
[2018-09-03] MEDS: LORazepam 0.5MG TABLET PO PRN ×2 (02:39→11:45)
[2018-09-03] MEDS: HEPARIN 5,000 UNITS/ML, 1ML SQ SCH ×2 (02:40→09:46)
[2018-09-03] MEDS: NYSTATIN 500,000 UNITS/5 ML UDC PO SCH ×2 (04:50→09:57)
[2018-09-03] MEDS: ONDANSETRON ODT 4 MG PO PRN ×2 (04:50→11:46)
[2018-09-03] MEDS: VANCOMYCIN 50 MG/ML ORAL SUSP PO SCH ×2 (04:50→09:47)
[2018-09-03 07:26] VITALS: BP 124/80
[2018-09-03] MEDS: SODIUM CHLORIDE FLUSH 10ML SYR IVF SCH (09:00)
[2018-09-03] MEDS: THIAMINE 100MG TABLET PO SCH (09:47)
[2018-09-03] MEDS: LACTOBACILLUS 1GM/ PACKET PO SCH (09:50)
[2018-09-03] MEDS: FOLIC ACID 1 MG TABLET PO SCH (09:51)
[2018-09-03] MEDS ORDERED: ONDA4TAB13 PO (12:04)
[2018-09-03] MEDS ORDERED: [UNRECOGNIZED DRUG - CODE] PO (12:04)
[2018-09-03] MEDS ORDERED: THIA100T67 PO (12:04)
[2018-09-03] MEDS ORDERED: LURA20TA PO (12:04)
[2018-09-03] MEDS ORDERED: ACID1GRA3 PO (12:04)
[2018-09-03] MEDS ORDERED: FOLI-17 PO (12:04)
[2018-09-03 12:45] VITALS: BP 117/73
== END 2018-09-03 14:20 | disposition hospice, home (50) | DRG 870 ==
LOC: ED 20:32 → EDIP 20:33 → ED 20:38 → SUATTDRO 20:58 → CCU 22:02 → 3NE 08-23 17:55
PROVIDERS: ADMIT Hospitalist; ATTEND Family Medicine
PROC: 0BH17EZ Insertion of Endotracheal Airway into Trachea, Via Natural or Artificial Opening (ICD-10-PCS; principal; 2018-08-18)
PROC: 5A1955Z Respiratory Ventilation, Greater than 96 Consecutive Hours (ICD-10-PCS; 2018-08-18)
PROC: 02HV33Z Insertion of Infusion Device into Superior Vena Cava, Percutaneous Approach (ICD-10-PCS; 2018-08-20)
DX: A40.3 Sepsis due to Streptococcus pneumoniae (principal); J96.01 Acute respiratory failure with hypoxia; J15.9 Unspecified bacterial pneumonia; E43 Unspecified severe protein-calorie malnutrition; J13 Pneumonia due to Streptococcus pneumoniae; R65.20 Severe sepsis without septic shock; I46.9 Cardiac arrest, cause unspecified; J81.1 Chronic pulmonary edema; Z99.11 Dependence on respirator [ventilator] status; Z68.1 Body mass index [BMI] 19.9 or less, adult; A04.72 Enterocolitis due to Clostridium difficile, not specified as recurrent; B37.0 Candidal stomatitis; E87.0 Hyperosmolality and hypernatremia; E87.4 Mixed disorder of acid-base balance; F10.231 Alcohol dependence with withdrawal delirium; F31.81 Bipolar II disorder; E87.1 Hypo-osmolality and hyponatremia; J44.0 Chronic obstructive pulmonary disease with (acute) lower respiratory infection; J93.82 Other air leak; R45.851 Suicidal ideations; K70.40 Alcoholic hepatic failure without coma; Z88.3 Allergy status to other anti-infective agents; D75.89 Other specified diseases of blood and blood-forming organs; E16.2 Hypoglycemia, unspecified; E83.39 Other disorders of phosphorus metabolism; E83.42 Hypomagnesemia; E86.0 Dehydration; E87.6 Hypokalemia; Y90.9 Presence of alcohol in blood, level not specified; F11.90 Opioid use, unspecified, uncomplicated; F17.210 Nicotine dependence, cigarettes, uncomplicated; G62.9 Polyneuropathy, unspecified; I10 Essential (primary) hypertension; I48.0 Paroxysmal atrial fibrillation; K70.10 Alcoholic hepatitis without ascites; K76.0 Fatty (change of) liver, not elsewhere classified; R32 Unspecified urinary incontinence; W18.39XA Other fall on same level, initial encounter; Y93.89 Activity, other specified; Y92.89 Other specified places as the place of occurrence of the external cause; Y99.8 Other external cause status; Z66 Do not resuscitate; Z51.5 Encounter for palliative care; Z91.19 Patient's noncompliance with other medical treatment and regimen; Z91.5 Personal history of self-harm; Z99.3 Dependence on wheelchair; Z82.49 Family history of ischemic heart disease and other diseases of the circulatory system
CPT/HCPCS: 31500; 36415; 36600; 70450; 71045; 71275; 74018; 80048; 80053; 80202; 80307; 80329; 81001; 82010; 82272; 82803; 82962; 83605; 83690; 83735; 83880; 84100; 84132; 84145; 84478; 84484; 85025; 85610; 85651; 85730; 86140; 87040; 87070; 87077; 87081; 87181; 87184; 87205; 87324; 87493; 90656; 93005; 93308; 94002; 94003; 94640; 96361; 96365; 96366; 96368; 96375; 99291; G0378; J0295; J0456; J0696; J1644; J1650; J2250; J2405; J2543; J2560; J2704; J3370; J3411; J3475; J3480; J7042; J7070; J7620; Q0162; G0480; J0282; J0330; J1940; J2060; J2930; J7030; J7040; J7050; J7060; S0028

== ENCOUNTER 2018-09-04 12:43 | Inpatient (IN) | payer MEDICARE, MEDICAID ==
[~2018-09-04] VITALS: Ht 167.6 cm; Wt 56.1 kg
[~2018-09-04 12:43] MED LIST changes: +ACID1GRA3 PO; -ETOMIDATE 20 MG/10 ML ONE; +FOLI-17 PO; +LURA20TA PO; -MIDAZOLAM 1 MG/ML, 5ML ONE; +ONDA4TAB13 PO; -PROPOFOL 10 MG/ML, 100ML IV ONE; -SUCCINYLCHOLINE 20 MG/ML, 10ML ONE; +THIA100T67 PO; +[UNRECOGNIZED DRUG - CODE] PO
[2018-09-04] MEDS ORDERED: ASPIRIN 81 MG TABLET CHEW ONE (13:16)
[2018-09-04 13:19] LABS: BASOPHILS # (AUTO) 0.04 x10^3/uL (0-0.1); BASOPHILS % (AUTO) 0 % (0-1); EOSINOPHILS # (AUTO) 0.12 x10^3/uL (0-0.4); EOSINOPHILS % (AUTO) 1 % (1-7); LYMPHOCYTES # (AUTO) 1.77 x10^3/uL (1-3.4); LYMPHOCYTES % (AUTO) 13 % (22-44); MD NO; MEAN CORPUSCULAR VOLUME 102.8 fL (81-97); MEAN PLATELET VOLUME 7.9 fL (7.4-10.4); MONOCYTES # (AUTO) 0.53 x10^3/uL (0.2-0.8); MONOCYTES % (AUTO) 4 % (2-9); NEUTROPHILS # (AUTO) 10.87 x10^3/uL (1.8-6.8); NEUTROPHILS % (AUTO) 82 % (42-75); PLATELET COUNT 935 x10^3/uL (130-400); RED BLOOD COUNT 3.95 x10^6/uL (4.38-5.82)
[2018-09-04] MEDS ORDERED: ASPIRIN 81 MG TABLET CHEW PO ONE (13:30)
[2018-09-04 13:31] LABS: ALANINE AMINOTRANSFERASE 44 U/L (12-78); ALBUMIN 2.7 g/dL (3.4-5.0); ANION GAP 14 mmol/L (5-15); CALCIUM 8.7 mg/dL (8.5-10.1); CHLORIDE 104 mmol/L (98-107); CREATININE 0.59 mg/dL (0.7-1.3)
[2018-09-04 13:36] LABS: ALKALINE PHOSPHATASE 171 U/L (45-117); BILIRUBIN,TOTAL 0.3 mg/dL (0.2-1.0); TOTAL PROTEIN 7.8 g/dL (6.4-8.2); TROPONIN I < 0.015 ng/mL (0.000-0.045)
[2018-09-04 13:49] LABS: MICROSCOPIC NOT IND
[2018-09-04] MEDS ORDERED: ONDANSETRON ODT 4 MG ONE (13:49)
[2018-09-04 13:54] LABS: CULTURE INDICATED? NO
[2018-09-04] MEDS ORDERED: ONDANSETRON ODT 4 MG PO ONE (14:00)
[2018-09-04] MEDS ORDERED: SODIUM CHLORIDE 0.9% 1,000ML IVBOLUS ONE (14:30)
[2018-09-04] MEDS ORDERED: CEFTRIAXONE 1,000 MG in SODIUM CHLORIDE 0.9% 50 ML IVPB ONE (14:30)
[2018-09-04] MEDS ORDERED: CEFTRIAXONE PMX 1GM/50ML 50 ML ONE (14:41)
[2018-09-04 16:23] VITALS: BP 114/62
[2018-09-04] MEDS ORDERED: BISACODYL 10 MG SUPP PR PRN (17:00)
[2018-09-04] MEDS ORDERED: ONDANSETRON 2MG/ML, 2ML IVPush PRN (17:00)
[2018-09-04] MEDS ORDERED: GUAIFENESIN/DM 200-20MG, 10ML UDC PO PRN (17:00)
[2018-09-04] MEDS ORDERED: LABETALOL 5MG/ML, 20ML IVPush PRN (17:00)
[2018-09-04] MEDS ORDERED: DOCUSATE 100 MG CAPSULE PO PRN (17:00)
[2018-09-04] MEDS ORDERED: hydrALAzine 20 MG/ML, 1ML IVPush PRN (17:00)
[2018-09-04] MEDS ORDERED: LORazepam 2 MG/ML, 1ML ONE (17:12)
[2018-09-04] MEDS: NICOTINE 14MG/24 HR PATCH.TD24 TD SCH (17:22)
[2018-09-04] MEDS ORDERED: LORazepam 1MG TABLET PO PRN ×4 (17:30)
[2018-09-04] MEDS ORDERED: LORazepam 2 MG/ML, 1ML IV PRN ×4 (17:30)
[2018-09-04 17:44] LABS: MICROSCOPIC INDICATED
[2018-09-04] MEDS: POTASSIUM CHLORIDE 20 MEQ, MAGNESIUM SULFATE 2 GM, THIAMINE 200 MG, MVI ADULT 10 ML, FO... IV SCH (17:50)
[2018-09-04 17:52] LABS: AMPHETAMINE SCREEN, URINE Negative (Negative); BARBITURATE SCREEN, URINE Positive (Negative); BENZODIAZEPINE SCREEN, URINE Negative (Negative); CANNABINOID SCREEN, URINE Negative (Negative); COCAINE SCREEN, URINE Negative (Negative); METHADONE SCREEN, URINE Negative (Negative); OPIATE SCREEN, URINE Negative (Negative)
[2018-09-04] MEDS: VANCOMYCIN 50 MG/ML ORAL SUSP PO SCH ×2 (18:01→23:18)
[2018-09-04 18:15] LABS: CULTURE INDICATED? NO
[2018-09-04 19:01] VITALS: BP 124/70
[2018-09-04] MEDS: ONDANSETRON ODT 4 MG PO PRN (20:46)
[2018-09-04] MEDS: LORazepam 2 MG/ML, 1ML IV PRN ×2 (20:46→23:18)
[2018-09-04] MEDS: FAMOTIDINE 20 MG TABLET PO SCH (20:46)
[2018-09-05 00:48] VITALS: BP 123/75
[2018-09-05] MEDS: ONDANSETRON ODT 4 MG PO PRN ×3 (02:46→20:36)
[2018-09-05 05:42] LABS: BASOPHILS # (AUTO) 0.11 x10^3/uL (0-0.1); BASOPHILS % (AUTO) 1 % (0-1); EOSINOPHILS # (AUTO) 0.27 x10^3/uL (0-0.4); EOSINOPHILS % (AUTO) 3 % (1-7); LYMPHOCYTES # (AUTO) 1.52 x10^3/uL (1-3.4); LYMPHOCYTES % (AUTO) 16 % (22-44); MD NO; MEAN CORPUSCULAR HEMOGLOBIN 34.8 pg (27.5-34.5); MEAN CORPUSCULAR HGB CONC 33.6 g/dL (33.2-36.2); MEAN CORPUSCULAR VOLUME 103.8 fL (81-97); MONOCYTES # (AUTO) 0.49 x10^3/uL (0.2-0.8); MONOCYTES % (AUTO) 5 % (2-9); NEUTROPHILS # (AUTO) 7.01 x10^3/uL (1.8-6.8); NEUTROPHILS % (AUTO) 75 % (42-75); PLATELET COUNT 714 x10^3/uL (130-400); RED BLOOD COUNT 3.11 x10^6/uL (4.38-5.82); RED CELL DISTRIBUTION WIDTH 15.2 % (9.4-14.8)
[2018-09-05 05:49] LABS: ANION GAP 7 mmol/L (5-15); CALCIUM 7.9 mg/dL (8.5-10.1); CHLORIDE 105 mmol/L (98-107)
[2018-09-05 05:51] LABS: CREATININE 0.52 mg/dL (0.7-1.3)
[2018-09-05] MEDS: VANCOMYCIN 50 MG/ML ORAL SUSP PO SCH ×4 (06:13→23:14)
[2018-09-05] MEDS: LORazepam 0.5MG TABLET PO PRN ×3 (06:23→23:14)
[2018-09-05 06:29] VITALS: BP 122/77
[2018-09-05] MEDS: MULTIVITAMINS/MINERALS TABLET PO SCH (08:33)
[2018-09-05] MEDS: FAMOTIDINE 20 MG TABLET PO SCH ×2 (08:33→20:28)
[2018-09-05] MEDS: CHLORDIAZEPOXIDE 25 MG CAPSULE PO SCH ×3 (13:45→20:28)
[2018-09-05 15:15] VITALS: BP 130/78
[2018-09-05] MEDS: NICOTINE 14MG/24 HR PATCH.TD24 TD SCH (16:17)
[2018-09-05 19:07] VITALS: BP 114/68
[2018-09-05] MEDS: POTASSIUM CHLORIDE 20 MEQ, MAGNESIUM SULFATE 2 GM, THIAMINE 200 MG, MVI ADULT 10 ML, FO... IV SCH (19:30)
[2018-09-06 00:41] VITALS: BP 124/75
[2018-09-06] MEDS: POTASSIUM CHLORIDE 20 MEQ, MAGNESIUM SULFATE 2 GM, THIAMINE 200 MG, MVI ADULT 10 ML, FO... IV SCH ×2 (05:16→16:56)
[2018-09-06] MEDS: VANCOMYCIN 50 MG/ML ORAL SUSP PO SCH ×4 (05:26→23:27)
[2018-09-06 06:38] VITALS: BP 134/79
[2018-09-06] MEDS: MULTIVITAMINS/MINERALS TABLET PO SCH (08:27)
[2018-09-06] MEDS: FAMOTIDINE 20 MG TABLET PO SCH ×2 (08:27→20:44)
[2018-09-06] MEDS: CHLORDIAZEPOXIDE 25 MG CAPSULE PO SCH ×3 (08:27→20:44)
[2018-09-06 12:00] VITALS: BP 126/75
[2018-09-06] MEDS: NICOTINE 14MG/24 HR PATCH.TD24 TD SCH (17:02)
[2018-09-06 20:25] VITALS: BP 109/67
[2018-09-07] MEDS: POTASSIUM CHLORIDE 20 MEQ, MAGNESIUM SULFATE 2 GM, THIAMINE 200 MG, MVI ADULT 10 ML, FO... IV SCH (01:48)
[2018-09-07 02:00] VITALS: BP 115/65
[2018-09-07] MEDS: VANCOMYCIN 50 MG/ML ORAL SUSP PO SCH ×4 (05:10→23:29)
[2018-09-07 07:11] VITALS: BP 110/68
[2018-09-07] MEDS: MULTIVITAMINS/MINERALS TABLET PO SCH (08:20)
[2018-09-07] MEDS: CHLORDIAZEPOXIDE 25 MG CAPSULE PO SCH (08:21)
[2018-09-07] MEDS: FAMOTIDINE 20 MG TABLET PO SCH ×2 (08:21→20:08)
[2018-09-07] MEDS: ACETAMINOPHEN 325 MG TABLET PO PRN (10:13)
[2018-09-07 12:02] VITALS: BP 114/70
[2018-09-07] MEDS: NICOTINE 14MG/24 HR PATCH.TD24 TD SCH (17:31)
[2018-09-07 18:42] VITALS: BP 127/74
[2018-09-08 02:13] VITALS: BP 126/81
[2018-09-08] MEDS: VANCOMYCIN 50 MG/ML ORAL SUSP PO SCH ×3 (06:21→17:07)
[2018-09-08 06:35] VITALS: BP 145/81
[2018-09-08] MEDS: FAMOTIDINE 20 MG TABLET PO SCH ×2 (09:34→21:01)
[2018-09-08] MEDS: ONDANSETRON ODT 4 MG PO PRN (09:34)
[2018-09-08] MEDS: ACETAMINOPHEN 325 MG TABLET PO PRN ×2 (09:34→17:06)
[2018-09-08] MEDS: MULTIVITAMINS/MINERALS TABLET PO SCH (09:34)
[2018-09-08 12:47] VITALS: BP 126/77
[2018-09-08] MEDS: NICOTINE 14MG/24 HR PATCH.TD24 TD SCH (17:06)
[2018-09-08 19:58] VITALS: BP 133/77
[2018-09-08] MEDS ORDERED: CHLORDIAZEPOXIDE 25 MG CAPSULE PO ONE (21:00)
== END 2018-09-08 22:56 | disposition left against medical advice (07) | DRG 555 ==
LOC: ED 14:16 → EDIP 14:21 → ED 14:58 → 4WST 15:38 → 4EST 09-07 23:47
PROVIDERS: ADMIT Family Medicine; ATTEND Family Medicine
DX: M62.81 Muscle weakness (generalized) (principal); E43 Unspecified severe protein-calorie malnutrition; J44.0 Chronic obstructive pulmonary disease with (acute) lower respiratory infection; F10.129 Alcohol abuse with intoxication, unspecified; F17.210 Nicotine dependence, cigarettes, uncomplicated; R29.6 Repeated falls; I10 Essential (primary) hypertension; I48.91 Unspecified atrial fibrillation; Z66 Do not resuscitate; G89.29 Other chronic pain; D75.89 Other specified diseases of blood and blood-forming organs; Z86.19 Personal history of other infectious and parasitic diseases; Z91.81 History of falling; Z68.20 Body mass index [BMI] 20.0-20.9, adult; I25.2 Old myocardial infarction; Z87.19 Personal history of other diseases of the digestive system
CPT/HCPCS: 36415; 71045; 80048; 80053; 80307; 81001; 81003; 83605; 83735; 83880; 84100; 84145; 84484; 85025; 87040; 93005; 96374; 99285; G0378; J0696; J2405; J3370; J3411; J3475; J3480; J7042; Q0162; J2060; J7030

== ENCOUNTER 2018-09-09 10:32 | Emergency (ER) | payer MEDICARE, MEDICAID ==
[~2018-09-09] VITALS: Ht 167.6 cm; Wt 57.3 kg
[2018-09-09 12:39] VITALS: BP 137/81
== END 2018-09-09 12:45 | disposition home or self-care (01) ==
LOC: ED 11:02
DX: R53.1 Weakness (principal); F10.20 Alcohol dependence, uncomplicated; Z60.9 Problem related to social environment, unspecified; J44.9 Chronic obstructive pulmonary disease, unspecified; I25.2 Old myocardial infarction; I10 Essential (primary) hypertension
CPT/HCPCS: 99283

== ENCOUNTER 2018-09-24 05:24 | Emergency (ER) | payer MEDICARE, MEDICAID ==
[~2018-09-24] VITALS: Ht 167.6 cm; Wt 54.1 kg
[2018-09-24] MEDS ORDERED: KETOROLAC 30 MG/1 ML ONE (05:55)
[2018-09-24] MEDS ORDERED: KETOROLAC 30 MG/1 ML IVPush ONE (06:00)
[2018-09-24] MEDS ORDERED: SODIUM CHLORIDE FLUSH 10ML SYR IVF ONE (06:00)
[2018-09-24 06:21] LABS: BASOPHILS # (AUTO) 0.04 x10^3/uL (0-0.1); BASOPHILS % (AUTO) 1 % (0-1); EOSINOPHILS # (AUTO) 0.01 x10^3/uL (0-0.4); EOSINOPHILS % (AUTO) 0 % (1-7); LYMPHOCYTES # (AUTO) 1.11 x10^3/uL (1-3.4); LYMPHOCYTES % (AUTO) 17 % (22-44); MD NO; MEAN CORPUSCULAR HEMOGLOBIN 35.6 pg (27.5-34.5); MEAN CORPUSCULAR HGB CONC 33.9 g/dL (33.2-36.2); MEAN PLATELET VOLUME 6.8 fL (7.4-10.4); MONOCYTES # (AUTO) 0.39 x10^3/uL (0.2-0.8); MONOCYTES % (AUTO) 6 % (2-9); NEUTROPHILS # (AUTO) 5.09 x10^3/uL (1.8-6.8); NEUTROPHILS % (AUTO) 77 % (42-75); PLATELET COUNT 365 x10^3/uL (130-400); RED BLOOD COUNT 4.14 x10^6/uL (4.38-5.82); RED CELL DISTRIBUTION WIDTH 16.6 % (9.4-14.8)
[2018-09-24 06:30] LABS: ALBUMIN 4.3 g/dL (3.4-5.0); ANION GAP 13 mmol/L (5-15); CALCIUM 9.6 mg/dL (8.5-10.1); CHLORIDE 100 mmol/L (98-107)
[2018-09-24 06:36] LABS: ALANINE AMINOTRANSFERASE 40 U/L (12-78); ALKALINE PHOSPHATASE 137 U/L (45-117); CREATININE 0.71 mg/dL (0.7-1.3); TOTAL PROTEIN 9.4 g/dL (6.4-8.2); TROPONIN I < 0.015 ng/mL (0.000-0.045)
[2018-09-24 08:34] VITALS: BP 130/79
== END 2018-09-24 08:38 | disposition home or self-care (01) ==
LOC: ED 05:46
DX: R07.89 Other chest pain (principal); I10 Essential (primary) hypertension; I25.2 Old myocardial infarction; J44.9 Chronic obstructive pulmonary disease, unspecified; I48.91 Unspecified atrial fibrillation; F17.200 Nicotine dependence, unspecified, uncomplicated
CPT/HCPCS: 36415; 71046; 80053; 83880; 84484; 85025; 93005; 96374; 99284; J1885

== ENCOUNTER 2018-10-01 13:33 | Inpatient (IN) | payer MEDICARE, MEDICAID ==
[~2018-10-01] VITALS: Ht 167.6 cm; Wt 54.3 kg
[2018-10-01] MEDS ORDERED: SODIUM CHLORIDE 0.9% 1,000 ML IV ONE (13:43)
[2018-10-01] MEDS ORDERED: HYDROcodone/APAP 5/325 TABLET PO ONE (14:00)
[2018-10-01] MEDS ORDERED: SODIUM CHLORIDE FLUSH 10ML SYR IVF ONE (14:00)
[2018-10-01] MEDS ORDERED: HYDROcodone/APAP 5/325 TABLET ONE (14:06)
[2018-10-01 14:26] LABS: BASOPHILS # (AUTO) 0.03 x10^3/uL (0-0.1); BASOPHILS % (AUTO) 0 % (0-1); EOSINOPHILS % (AUTO) 0 % (1-7); LYMPHOCYTES # (AUTO) 1.18 x10^3/uL (1-3.4); LYMPHOCYTES % (AUTO) 16 % (22-44); MD NO; MEAN CORPUSCULAR HEMOGLOBIN 34.6 pg (27.5-34.5); MEAN CORPUSCULAR HGB CONC 33.4 g/dL (33.2-36.2); MEAN CORPUSCULAR VOLUME 103.5 fL (81-97); MEAN PLATELET VOLUME 6.4 fL (7.4-10.4); MONOCYTES # (AUTO) 0.65 x10^3/uL (0.2-0.8); MONOCYTES % (AUTO) 9 % (2-9); NEUTROPHILS # (AUTO) 5.53 x10^3/uL (1.8-6.8); NEUTROPHILS % (AUTO) 75 % (42-75); PLATELET COUNT 340 x10^3/uL (130-400); RED BLOOD COUNT 3.99 x10^6/uL (4.38-5.82); RED CELL DISTRIBUTION WIDTH 15.4 % (9.4-14.8)
[2018-10-01 14:31] LABS: PROTHROMBIN TIME 10.6 Seconds (9.6-11.5)
[2018-10-01 14:34] LABS: ALANINE AMINOTRANSFERASE 45 U/L (12-78); ALBUMIN 3.1 g/dL (3.4-5.0); ANION GAP 23 mmol/L (5-15); CALCIUM 7.9 mg/dL (8.5-10.1); CHLORIDE 99 mmol/L (98-107); CREATININE 0.56 mg/dL (0.7-1.3)
[2018-10-01] MEDS ORDERED: CEFTRIAXONE PMX 1GM/50ML 50 ML IV ONE (15:00)
[2018-10-01] MEDS ORDERED: MAGNESIUM SULFATE PMX 2GM/50ML 50 ML IV ONE ×2 (15:00→16:00)
[2018-10-01] MEDS ORDERED: POTASSIUM CHLORIDE 20 MEQ TAB.ER.PRT PO ONE (15:00)
[2018-10-01 15:01] LABS: ALKALINE PHOSPHATASE 194 U/L (45-117); BILIRUBIN,TOTAL 0.8 mg/dL (0.2-1.0); CREATINE KINASE, TOTAL 123 U/L (39-308)
[2018-10-01 15:22] LABS: ACETONE, SERUM Moderate(40mg/dL) mg/dL (Negative)
[2018-10-01] MEDS: NS + 20MEQ KCL 1,000 ML IV SCH (15:33)
[2018-10-01] MEDS ORDERED: CEFTRIAXONE PMX 1GM/50ML 50 ML ONE (15:34)
[2018-10-01] MEDS: POTASSIUM CHLORIDE 40 MEQ in D5%-0.9% NACL 1,000 ML IV SCH ×3 (15:52→22:59)
[2018-10-01] MEDS ORDERED: KETOROLAC 30 MG/1 ML IV PRN (16:00)
[2018-10-01] MEDS ORDERED: ONDANSETRON 2MG/ML, 2ML IVPush PRN (16:00)
[2018-10-01] MEDS ORDERED: morphine SULFATE 10 MG/ML, 1ML IVPush PRN (16:00)
[2018-10-01] MEDS ORDERED: POLYETHYLENE GLYCOL 17 GM PACKET PO PRN (16:00)
[2018-10-01] MEDS ORDERED: DOCUSATE 100 MG CAPSULE PO PRN (16:00)
[2018-10-01] MEDS ORDERED: GUAIFENESIN/COD200MG-20MG/10ML LIQUID PO PRN (16:00)
[2018-10-01] MEDS ORDERED: DOXYCYCLINE 100 MG in DEXTROSE 5% 250 ML IV ONE (16:00)
[2018-10-01] MEDS ORDERED: MORPHINE SULFATE 4 MG/ML, 1ML ONE (16:03)
[2018-10-01] MEDS ORDERED: POTASSIUM CHLORIDE 20 MEQ TAB.ER.PRT ONE (16:03)
[2018-10-01] MEDS: DOXYCYCLINE 100 MG in DEXTROSE 5% 250 ML IV SCH (16:46)
[2018-10-01] MEDS: ENOXAPARIN 40 MG/0.4 ML SQ SCH (17:00)
[2018-10-01 17:50] VITALS: BP 136/82
[2018-10-01] MEDS: NICOTINE 7 MG/24 HR PATCH.TD24 TD SCH (18:02)
[2018-10-01] MEDS: LORazepam 1MG TABLET PO PRN (18:03)
[2018-10-01 18:58] VITALS: BP 111/79
[2018-10-01] MEDS: HYDROcodone/APAP 5/325 TABLET PO PRN (19:22)
[2018-10-01 20:05] LABS: AMPHETAMINE SCREEN, URINE Negative (Negative); BARBITURATE SCREEN, URINE Negative (Negative); BENZODIAZEPINE SCREEN, URINE Negative (Negative); CANNABINOID SCREEN, URINE Negative (Negative); COCAINE SCREEN, URINE Negative (Negative); METHADONE SCREEN, URINE Negative (Negative); OPIATE SCREEN, URINE Positive (Negative)
[2018-10-01 21:00] LABS: MICROSCOPIC AUTO
[2018-10-01 21:03] LABS: CULTURE INDICATED? NO
[2018-10-01] MEDS: FAMOTIDINE 20 MG TABLET PO SCH (21:11)
[2018-10-01] MEDS: MORPHINE SULFATE 4 MG/ML, 1ML IVPush PRN (21:12)
[2018-10-02] MEDS: MORPHINE SULFATE 4 MG/ML, 1ML IVPush PRN ×2 (00:14→03:23)
[2018-10-02] MEDS: NS + 20MEQ KCL 1,000 ML IV SCH (00:20)
[2018-10-02 01:24] VITALS: BP 150/79
[2018-10-02] MEDS: LORazepam 1MG TABLET PO PRN ×4 (01:55→20:51)
[2018-10-02] MEDS: POTASSIUM CHLORIDE 40 MEQ in D5%-0.9% NACL 1,000 ML IV SCH ×5 (02:55→23:20)
[2018-10-02] MEDS: DOXYCYCLINE 100 MG in DEXTROSE 5% 250 ML IV SCH ×2 (04:38→18:27)
[2018-10-02 05:38] LABS: ANION GAP 10 mmol/L (5-15); CALCIUM 7.4 mg/dL (8.5-10.1); CHLORIDE 104 mmol/L (98-107); CREATININE 0.67 mg/dL (0.7-1.3)
[2018-10-02 06:42] VITALS: BP 153/87
[2018-10-02] MEDS: FAMOTIDINE 20 MG TABLET PO SCH ×2 (08:26→20:51)
[2018-10-02] MEDS: SENNA/DOCUSATE TABLET PO SCH (08:26)
[2018-10-02] MEDS: HYDROcodone/APAP 5/325 TABLET PO PRN (08:26)
[2018-10-02 12:25] VITALS: BP 153/95
[2018-10-02] MEDS ORDERED: MAGNESIUM SULFATE PMX 2GM/50ML 50 ML IV ONE (15:00)
[2018-10-02] MEDS: CEFTRIAXONE PMX 1GM/50ML 50 ML IV SCH (15:52)
[2018-10-02] MEDS: NICOTINE 7 MG/24 HR PATCH.TD24 TD SCH (18:27)
[2018-10-02] MEDS: ENOXAPARIN 40 MG/0.4 ML SQ SCH (18:27)
[2018-10-02 19:07] VITALS: BP 147/81
[2018-10-02] MEDS: KETOROLAC 30 MG/1 ML IV SCH (20:51)
[2018-10-03] MEDS: HYDROcodone/APAP 5/325 TABLET PO PRN ×5 (00:06→23:46)
[2018-10-03 00:07] VITALS: BP 136/87
[2018-10-03] MEDS: KETOROLAC 30 MG/1 ML IV SCH ×4 (03:13→21:08)
[2018-10-03] MEDS: POTASSIUM CHLORIDE 40 MEQ in D5%-0.9% NACL 1,000 ML IV SCH ×3 (03:14→11:36)
[2018-10-03 05:37] LABS: BASOPHILS # (AUTO) 0.02 x10^3/uL (0-0.1); BASOPHILS % (AUTO) 1 % (0-1); EOSINOPHILS # (AUTO) 0.01 x10^3/uL (0-0.4); EOSINOPHILS % (AUTO) 0 % (1-7); LYMPHOCYTES # (AUTO) 0.63 x10^3/uL (1-3.4); LYMPHOCYTES % (AUTO) 17 % (22-44); MD NO; MEAN CORPUSCULAR HEMOGLOBIN 34.9 pg (27.5-34.5); MEAN CORPUSCULAR HGB CONC 33.4 g/dL (33.2-36.2); MEAN CORPUSCULAR VOLUME 104.6 fL (81-97); MEAN PLATELET VOLUME 7.5 fL (7.4-10.4); MONOCYTES % (AUTO) 8 % (2-9); NEUTROPHILS # (AUTO) 2.79 x10^3/uL (1.8-6.8); NEUTROPHILS % (AUTO) 74 % (42-75); PLATELET COUNT 217 x10^3/uL (130-400); RED BLOOD COUNT 3.61 x10^6/uL (4.38-5.82); RED CELL DISTRIBUTION WIDTH 15.3 % (9.4-14.8)
[2018-10-03 05:44] LABS: CHLORIDE 110 mmol/L (98-107)
[2018-10-03 05:49] LABS: ANION GAP 10 mmol/L (5-15); CALCIUM 7.9 mg/dL (8.5-10.1); CREATININE 0.51 mg/dL (0.7-1.3)
[2018-10-03] MEDS: DOXYCYCLINE 100 MG in DEXTROSE 5% 250 ML IV SCH ×2 (06:15→18:00)
[2018-10-03 06:50] VITALS: BP 155/85
[2018-10-03] MEDS: LORazepam 1MG TABLET PO PRN (07:45)
[2018-10-03] MEDS: FAMOTIDINE 20 MG TABLET PO SCH ×2 (08:48→21:08)
[2018-10-03] MEDS: SENNA/DOCUSATE TABLET PO SCH (08:49)
[2018-10-03 12:01] VITALS: BP 151/81
[2018-10-03] MEDS: CEFTRIAXONE PMX 1GM/50ML 50 ML IV SCH (16:01)
[2018-10-03] MEDS: ENOXAPARIN 40 MG/0.4 ML SQ SCH (18:00)
[2018-10-03] MEDS: NICOTINE 7 MG/24 HR PATCH.TD24 TD SCH (18:00)
[2018-10-03 19:14] VITALS: BP 157/89
[2018-10-04 01:39] VITALS: BP 123/86
[2018-10-04] MEDS: KETOROLAC 30 MG/1 ML IV SCH ×4 (03:05→20:25)
[2018-10-04] MEDS: DOXYCYCLINE 100 MG in DEXTROSE 5% 250 ML IV SCH (05:54)
[2018-10-04 06:47] VITALS: BP 158/90
[2018-10-04] MEDS: SENNA/DOCUSATE TABLET PO SCH (08:47)
[2018-10-04] MEDS: FAMOTIDINE 20 MG TABLET PO SCH ×2 (08:47→20:25)
[2018-10-04] MEDS: THIAMINE 100MG TABLET PO SCH (08:47)
[2018-10-04 12:06] VITALS: BP 127/85
[2018-10-04] MEDS: ALBUTEROL/IPRATROPIUM 2.5MG/0.5MG, 3 ML HHN SCH ×2 (14:00→20:00)
[2018-10-04] MEDS: HYDROcodone/APAP 5/325 TABLET PO PRN ×2 (14:28→20:25)
[2018-10-04] MEDS: ENOXAPARIN 40 MG/0.4 ML SQ SCH (17:23)
[2018-10-04] MEDS: NICOTINE 7 MG/24 HR PATCH.TD24 TD SCH (17:23)
[2018-10-04 19:42] VITALS: BP 149/95
[2018-10-04] MEDS: CEFDINIR 300 MG CAPSULE PO SCH (20:25)
[2018-10-05 01:32] VITALS: BP 155/90
[2018-10-05] MEDS: ALBUTEROL/IPRATROPIUM 2.5MG/0.5MG, 3 ML HHN SCH ×4 (02:00→20:00)
[2018-10-05] MEDS: KETOROLAC 30 MG/1 ML IV SCH ×4 (03:22→20:26)
[2018-10-05 06:50] VITALS: BP 163/93
[2018-10-05] MEDS: CEFDINIR 300 MG CAPSULE PO SCH ×2 (08:23→20:25)
[2018-10-05] MEDS: FAMOTIDINE 20 MG TABLET PO SCH ×2 (08:23→20:26)
[2018-10-05] MEDS: LORazepam 1MG TABLET PO PRN (08:24)
[2018-10-05] MEDS: THIAMINE 100MG TABLET PO SCH (08:24)
[2018-10-05] MEDS: SENNA/DOCUSATE TABLET PO SCH (08:24)
[2018-10-05 12:55] VITALS: BP 148/67
[2018-10-05 19:22] VITALS: BP 145/79
[2018-10-05] MEDS: ENOXAPARIN 40 MG/0.4 ML SQ SCH (20:25)
[2018-10-05] MEDS: NICOTINE 7 MG/24 HR PATCH.TD24 TD SCH (20:25)
[2018-10-05] MEDS: ACETAMINOPHEN 325 MG TABLET PO PRN (22:08)
[2018-10-06 00:29] VITALS: BP 154/90
[2018-10-06] MEDS: ALBUTEROL/IPRATROPIUM 2.5MG/0.5MG, 3 ML HHN SCH ×2 (02:00→08:00)
[2018-10-06] MEDS: ACETAMINOPHEN 325 MG TABLET PO PRN ×3 (02:05→11:57)
[2018-10-06] MEDS: FAMOTIDINE 20 MG TABLET PO SCH (07:47)
[2018-10-06] MEDS: CEFDINIR 300 MG CAPSULE PO SCH (07:47)
[2018-10-06] MEDS: SENNA/DOCUSATE TABLET PO SCH (07:47)
[2018-10-06] MEDS: THIAMINE 100MG TABLET PO SCH (07:47)
[2018-10-06 07:55] VITALS: BP 155/82
[2018-10-06] MEDS ORDERED: LIDODERM 5% PATCH TD ONE (10:00)
[2018-10-06] MEDS ORDERED: METOPROLOL SUCCINATE 25 MG TAB.ER.24H PO SCH (10:00)
[2018-10-06] MEDS ORDERED: METO25TA91 PO (12:23)
[2018-10-06] MEDS ORDERED: IPRA3AMP30 HHN (12:23)
[2018-10-06] MEDS ORDERED: NICO-485 TD (12:23)
[2018-10-06] MEDS ORDERED: THIA100T67 PO (12:23)
[2018-10-06] MEDS ORDERED: ACET325T14 PO (12:23)
[2018-10-06] MEDS ORDERED: FAMO20TA7 PO (12:23)
[2018-10-06 12:51] VITALS: BP 131/83
== END 2018-10-06 15:23 | DRG 177 ==
LOC: ED 13:37 → EDIP 14:44 → 3NE 16:44
PROVIDERS: ADMIT Hospitalist; ATTEND Internal Medicine
DX: J15.6 Pneumonia due to other Gram-negative bacteria (principal); E43 Unspecified severe protein-calorie malnutrition; Z68.1 Body mass index [BMI] 19.9 or less, adult; E87.2 Acidosis; J44.0 Chronic obstructive pulmonary disease with (acute) lower respiratory infection; J98.11 Atelectasis; R62.7 Adult failure to thrive; F17.210 Nicotine dependence, cigarettes, uncomplicated; F10.20 Alcohol dependence, uncomplicated; I48.91 Unspecified atrial fibrillation; F31.9 Bipolar disorder, unspecified; E16.2 Hypoglycemia, unspecified; R32 Unspecified urinary incontinence; Z66 Do not resuscitate; E83.42 Hypomagnesemia; F11.90 Opioid use, unspecified, uncomplicated; G89.29 Other chronic pain; I10 Essential (primary) hypertension; I25.2 Old myocardial infarction; Z87.01 Personal history of pneumonia (recurrent); Z76.5 Malingerer [conscious simulation]; Z91.041 Radiographic dye allergy status
CPT/HCPCS: 36415; 71045; 71250; 80048; 80053; 80307; 81001; 82010; 82550; 82607; 83605; 83735; 85025; 85610; 87040; 93005; 96361; 96374; 96375; 99285; G0378; J0696; J1650; J1885; J3480; J7042; J7060; J2270; J3475; J7030

== ENCOUNTER 2019-01-01 13:26 | Inpatient (IN) | payer MEDICARE, MEDICAID ==
[~2019-01-01] VITALS: Ht 167.6 cm; Wt 55.0 kg
[~2019-01-01 13:26] MED LIST changes: +ACET325T14 PO; -AMLO2.5T3 PO; +AMLO2.5T5 PO; +FAMO20TA7 PO; -GABA600T2 PO; +GABA600T7 PO; -GABA800T2 PO; +GABA800T5 PO; +IPRA3AMP30 HHN; -METH-356 PO; +METH10TA2 PO; +METO25TA91 PO; +NICO-485 TD
--- NOTE | 2019-01-01 13:26 | NUR ---
BIBA from outside of [facility] c/o SI ("drink myself to , I need to get into a place where someone can take care of me, I can't do it by myself"), +EtOH today ~ 1pt vodka; denies HI, drugs or previous attempt. 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
--- NOTE | 2019-01-01 13:59 | NUR ---
TASK RN: EQUAL CHEST RISE WITH GOOD CAP REFILL. Patient is resting comfortably in bed. Vital Signs within normal limits.
[2019-01-01 14:26] LABS: BASOPHILS # (AUTO) 0.02 x10^3/uL (0-0.1); BASOPHILS % (AUTO) 0 % (0-1); EOSINOPHILS # (AUTO) 0.05 x10^3/uL (0-0.4); EOSINOPHILS % (AUTO) 1 % (1-7); LYMPHOCYTES # (AUTO) 2.49 x10^3/uL (1-3.4); LYMPHOCYTES % (AUTO) 40 % (22-44); MD NO; MEAN CORPUSCULAR HEMOGLOBIN 33.2 pg (27.5-34.5); MEAN CORPUSCULAR HGB CONC 34.4 g/dL (33.2-36.2); MEAN CORPUSCULAR VOLUME 96.4 fL (81-97); MEAN PLATELET VOLUME 6.9 fL (7.4-10.4); MONOCYTES # (AUTO) 0.51 x10^3/uL (0.2-0.8); MONOCYTES % (AUTO) 8 % (2-9); NEUTROPHILS # (AUTO) 3.18 x10^3/uL (1.8-6.8); NEUTROPHILS % (AUTO) 51 % (42-75); PLATELET COUNT 300 x10^3/uL (130-400); RED CELL DISTRIBUTION WIDTH 14.6 % (9.4-14.8)
[2019-01-01 14:35] LABS: ALANINE AMINOTRANSFERASE 17 U/L (12-78); ALBUMIN 3.2 g/dL (3.4-5.0); ANION GAP 14 mmol/L (5-15); CALCIUM 7.9 mg/dL (8.5-10.1); CHLORIDE 104 mmol/L (98-107); CREATININE 0.91 mg/dL (0.7-1.3); SALICYLATE LEVEL 1.7 mg/dL (2.8-20.0)
[2019-01-01 14:39] LABS: ALKALINE PHOSPHATASE 94 U/L (45-117); BILIRUBIN,TOTAL 0.4 mg/dL (0.2-1.0); TOTAL PROTEIN 6.3 g/dL (6.4-8.2)
[2019-01-01 14:43] LABS: ACETAMINOPHEN < 2 mcg/mL (10-30)
--- NOTE | 2019-01-01 15:02 | NUR ---
pt up to BR steadily via FWW, stated he "can't pee in the urinal, the toilet worked just fine" as he ambulated back to room, pt back to [facility] with eyes closed, calm & cooperative with some redirection, responds approp to staff, NAD, comfort measures provided, snacks & milk given, sitter in view, will continue to monitor frequently.
--- NOTE | 2019-01-01 15:45 | NUR ---
report given to Khushi Ziegler.
--- NOTE | 2019-01-01 15:53 | NUR ---
RECEIVED REPORT FROM SRAVAN ELLISON, ASSUMING CARE OF PT. PT RESTING IN BED, NADN. FREDERICK IN DANIELLE FOR CONTINUOUS MONITORING.
--- NOTE | 2019-01-01 16:33 | NUR ---
UA sent. Resting in [facility]. Sitter at bedside. No needs.
[2019-01-01 16:51] LABS: MICROSCOPIC NOT IND
[2019-01-01 16:55] LABS: CULTURE INDICATED? NO
[2019-01-01 17:03] LABS: AMPHETAMINE SCREEN, URINE Negative (Negative); BARBITURATE SCREEN, URINE Negative (Negative); BENZODIAZEPINE SCREEN, URINE Negative (Negative); CANNABINOID SCREEN, URINE Negative (Negative); COCAINE SCREEN, URINE Negative (Negative); METHADONE SCREEN, URINE Negative (Negative); OPIATE SCREEN, URINE Negative (Negative)
--- NOTE | 2019-01-01 18:31 | NUR ---
PT EATING DIET TRAY AT THSI TIME. NO OTHER NEEDS REPORTED. SITTER IN DANIELLE FOR CONTINUOUS MONITORING. AWAITING PT TO BE SOBER FOR TELEPSYCH
--- NOTE | 2019-01-01 18:59 | NUR ---
PT NOW SOBER. TO BEDSIDE TO RECEK, PT STATES STILL SI. WILL BE PLACED ON L2K
--- NOTE | 2019-01-01 19:32 | NUR ---
PT NOW C/O SHARP CHEST PAINS. HOSPITALIST UPDATED, PT TO BE ADMITTED TO MONITORED FLOOR. PT PLACED MONITORS.
--- NOTE | 2019-01-01 19:58 | NUR ---
VERBAL ORDER RECEIVED FOR EKG TO BE DONE. TECH COMPLETED EKG AND GIVEN TO
--- NOTE | 2019-01-01 20:49 | NUR ---
PT STATES NO CP AT THIS TIME. VSS. SITTER IN DANIELLE FOR CONTINUOUS MONITORING. AWAITING ROOM ON CARDIAC FLOOR.
[2019-01-01] MEDS ORDERED: morphine SULFATE 10 MG/ML, 1ML IVPush PRN (21:00)
[2019-01-01] MEDS ORDERED: ONDANSETRON 2MG/ML, 2ML IVPush PRN (21:00)
[2019-01-01] MEDS ORDERED: hydrALAzine 20 MG/ML, 1ML IVPush PRN (21:00)
[2019-01-01] MEDS ORDERED: MAGNESIUM SULFATE PMX 2GM/50ML 50 ML IV ONE (21:30)
[2019-01-01] MEDS ORDERED: POTASSIUM CHLORIDE 20 MEQ TAB.ER.PRT PO ONE (21:30)
[2019-01-01 21:31] LABS: TROPONIN I < 0.015 ng/mL (0.000-0.045)
--- NOTE | 2019-01-01 22:10 | NUR ---
PT RESTING IN BED, VSS. NADN. ALL NEEDS MET AT THIS TIME. PT UP TO RESTROOM WITH WALKER, STEADY GAIT. SITTER IN DANIELLE FOR CONTINUOUS MONITORING.
[2019-01-01] MEDS ORDERED: POTASSIUM CHLORIDE 20 MEQ TAB.ER.PRT ONE (22:22)
[2019-01-01] MEDS: ENOXAPARIN 40 MG/0.4 ML SQ SCH (22:36)
--- NOTE | 2019-01-01 22:36 | NUR ---
MAG HANNA ORDERED FROM PHARM. PT UP TO RESTROOM WITH WALKER AND STEADY GAIT.
--- NOTE | 2019-01-01 23:28 | NUR ---
REPORT GIVEN TO VICKI ELLISON
[2019-01-01] MEDS ORDERED: MAGNESIUM SULFATE PMX 2GM/50ML 50 ML ONE (23:30)
--- NOTE | 2019-01-01 23:38 | NUR ---
ASSUMED CARE FOR THIS PT. MAG DRIP STARTED ORDERED PT REPORTS NO PAIN AND GIVEN PILLOW AND POSITIONED FOR COMFORT.
--- NOTE | 2019-01-02 01:03 | NUR ---
PT BACK TO BED AFTER A WALK TO THE BR. PT STILL WITHOUT CP OR OTHER COMPLAINTS.
[2019-01-02] MEDS ORDERED: LOPERAMIDE 2 MG CAPSULE ONE (02:10)
[2019-01-02] MEDS ORDERED: POTASSIUM CHLORIDE 20 MEQ TAB.ER.PRT ONE (02:11)
[2019-01-02] MEDS ORDERED: LOPERAMIDE 2 MG CAPSULE PO ONE (02:30)
[2019-01-02] MEDS ORDERED: POTASSIUM CHLORIDE 20 MEQ TAB.ER.PRT PO ONE (02:30)
[2019-01-02 03:10] LABS: BASOPHILS # (AUTO) 0.02 x10^3/uL (0-0.1); BASOPHILS % (AUTO) 0 % (0-1); EOSINOPHILS # (AUTO) 0.06 x10^3/uL (0-0.4); EOSINOPHILS % (AUTO) 1 % (1-7); LYMPHOCYTES # (AUTO) 2.27 x10^3/uL (1-3.4); LYMPHOCYTES % (AUTO) 38 % (22-44); MD NO; MEAN CORPUSCULAR HEMOGLOBIN 33.5 pg (27.5-34.5); MEAN CORPUSCULAR HGB CONC 34.5 g/dL (33.2-36.2); MEAN CORPUSCULAR VOLUME 96.9 fL (81-97); MEAN PLATELET VOLUME 6.9 fL (7.4-10.4); MONOCYTES # (AUTO) 0.67 x10^3/uL (0.2-0.8); MONOCYTES % (AUTO) 11 % (2-9); NEUTROPHILS # (AUTO) 2.94 x10^3/uL (1.8-6.8); NEUTROPHILS % (AUTO) 49 % (42-75); PLATELET COUNT 288 x10^3/uL (130-400); RED BLOOD COUNT 3.97 x10^6/uL (4.38-5.82); RED CELL DISTRIBUTION WIDTH 14.9 % (9.4-14.8)
[2019-01-02 03:24] LABS: ANION GAP 5 mmol/L (5-15); CALCIUM 8.2 mg/dL (8.5-10.1); CHLORIDE 106 mmol/L (98-107)
[2019-01-02 03:29] LABS: TROPONIN I < 0.015 ng/mL (0.000-0.045)
--- NOTE | 2019-01-02 03:49 | NUR ---
PT. REMAINS MONITORED. PT. STATES HE NEEDS SOMETHING FOR ANXIETY. PT. WAS MEDICATED ORDERED. PT. HAS THE CP MONITOR IN PLACE.
[2019-01-02] MEDS ORDERED: HALOPERIDOL 5 MG/ML ONE ×2 (03:59→09:43)
[2019-01-02] MEDS: HALOPERIDOL 5 MG/ML IVPush PRN ×2 (04:04→10:19)
--- NOTE | 2019-01-02 04:19 | NUR ---
PT.'S VITALS MONITOED. PT. IS RESTING WITH THE SITTER OUTSIDE OF HIS ROOM. SAFETY MEASURES MAINTAINED. PT. IS RESTING ON A HOSPITAL BED AT THIS TIME.
[2019-01-02] MEDS ORDERED: ASPIRIN 325 MG TABLET ONE (06:02)
[2019-01-02] MEDS: ASPIRIN 325 MG TABLET PO SCH (06:04)
--- NOTE | 2019-01-02 06:13 | NUR ---
PT. REMAINS MONITORED. VSS. PT. WAS GIVEN HIS AM MEDICATIONS AT THIS TIME. SAFETY MEASURES MAINTAINED.
--- NOTE | 2019-01-02 07:03 | NUR ---
REPORT RECEIVED FROM SCOT PAZ. ASSUMING PRIMARY CARE OF PT.
--- NOTE | 2019-01-02 08:30 | NUR ---
DIET TRAY DELIVERED TO PT.
--- NOTE | 2019-01-02 08:52 | NUR ---
RN ROUNDED ON PT. PT AWAKE ALERT AND ORIENTED X4. STATES "I WANT SOMETHING FOR MY SHAKES." RN TO MEDICATE PT PER EMAR. VSS. SITTER OUTSIDE OF ROOM MONITORING PT. SI PRECAUTIONS IN PLACE.
--- NOTE | 2019-01-02 10:20 | NUR ---
PT AWARE OF ADMIT PLAN, UP TO PHONE AND RESTROOM, CONT SITTER, PT MEDICATED WTIH HALDOL PER PATEINTS REQUEST, ON MOTOR AND CONTROLS TESTER. DENIES CHEST PAIN AT THIS TIME
--- NOTE | 2019-01-02 11:40 | NUR ---
[facility] DENIED, NO ACTIVE DAYS
[2019-01-02 14:22] VITALS: BP 133/83
[2019-01-02] MEDS: LORazepam 1MG TABLET PO PRN ×2 (16:18→22:19)
[2019-01-02] MEDS: ENOXAPARIN 40 MG/0.4 ML SQ SCH (20:48)
[2019-01-02 20:59] VITALS: BP 145/82
[2019-01-03 02:27] VITALS: BP 144/90
[2019-01-03] MEDS: LORazepam 1MG TABLET PO PRN ×4 (05:01→23:22)
[2019-01-03] MEDS: ASPIRIN 325 MG TABLET PO SCH (05:01)
[2019-01-03 05:34] LABS: BASOPHILS # (AUTO) 0.02 x10^3/uL (0-0.1); BASOPHILS % (AUTO) 0 % (0-1); EOSINOPHILS # (AUTO) 0.16 x10^3/uL (0-0.4); EOSINOPHILS % (AUTO) 3 % (1-7); LYMPHOCYTES # (AUTO) 2.44 x10^3/uL (1-3.4); LYMPHOCYTES % (AUTO) 40 % (22-44); MD NO; MEAN CORPUSCULAR HEMOGLOBIN 33.4 pg (27.5-34.5); MEAN CORPUSCULAR HGB CONC 34.1 g/dL (33.2-36.2); MEAN PLATELET VOLUME 7.1 fL (7.4-10.4); MONOCYTES # (AUTO) 0.67 x10^3/uL (0.2-0.8); MONOCYTES % (AUTO) 11 % (2-9); NEUTROPHILS # (AUTO) 2.77 x10^3/uL (1.8-6.8); NEUTROPHILS % (AUTO) 46 % (42-75); PLATELET COUNT 277 x10^3/uL (130-400); RED BLOOD COUNT 3.99 x10^6/uL (4.38-5.82); RED CELL DISTRIBUTION WIDTH 15.4 % (9.4-14.8)
[2019-01-03 05:42] LABS: ANION GAP 5 mmol/L (5-15); CALCIUM 8.3 mg/dL (8.5-10.1); CHLORIDE 110 mmol/L (98-107)
[2019-01-03 07:35] VITALS: BP 126/79
[2019-01-03 12:12] VITALS: BP 134/83
[2019-01-03] MEDS: ACETAMINOPHEN 325 MG TABLET PO PRN ×2 (17:01→22:40)
[2019-01-03 19:42] VITALS: BP 137/88
[2019-01-03] MEDS: ENOXAPARIN 40 MG/0.4 ML SQ SCH (20:07)
[2019-01-04 00:43] VITALS: BP 135/87
[2019-01-04] MEDS: ASPIRIN 325 MG TABLET PO SCH (05:14)
[2019-01-04] MEDS: LORazepam 1MG TABLET PO PRN ×2 (05:14→17:00)
[2019-01-04] MEDS: ACETAMINOPHEN 325 MG TABLET PO PRN ×2 (05:14→17:00)
[2019-01-04 05:45] LABS: ANION GAP 6 mmol/L (5-15); CALCIUM 8.5 mg/dL (8.5-10.1); CHLORIDE 110 mmol/L (98-107); CREATININE 0.62 mg/dL (0.7-1.3)
[2019-01-04 07:33] VITALS: BP 139/88
[2019-01-04 12:48] VITALS: BP 136/83
[2019-01-04 20:43] VITALS: BP 132/92
[2019-01-04] MEDS: ENOXAPARIN 40 MG/0.4 ML SQ SCH (20:43)
[2019-01-05 01:57] VITALS: BP 143/90
[2019-01-05] MEDS: LORazepam 1MG TABLET PO PRN ×2 (04:41→17:36)
[2019-01-05] MEDS: ACETAMINOPHEN 325 MG TABLET PO PRN ×2 (04:41→17:28)
[2019-01-05] MEDS: ASPIRIN 325 MG TABLET PO SCH (06:23)
[2019-01-05 07:50] VITALS: BP 143/93
[2019-01-05] MEDS ORDERED: REGADENOSON 0.4 MG/5 ML SYRINGE ONE (08:08)
[2019-01-05 14:00] VITALS: BP 136/86
[2019-01-05] MEDS ORDERED: LORA-446 PO (14:48)
[2019-01-05] MEDS: ENOXAPARIN 40 MG/0.4 ML SQ SCH (19:41)
[2019-01-05 21:37] VITALS: BP 116/86
[2019-01-06 00:43] VITALS: BP 123/71
[2019-01-06] MEDS: ACETAMINOPHEN 325 MG TABLET PO PRN ×3 (03:09→17:10)
[2019-01-06] MEDS: LORazepam 1MG TABLET PO PRN ×3 (03:09→19:19)
[2019-01-06] MEDS: ASPIRIN 325 MG TABLET PO SCH (06:06)
[2019-01-06 07:08] VITALS: BP 113/79
[2019-01-06 12:33] VITALS: BP 117/81
[2019-01-06 19:04] VITALS: BP 146/81
[2019-01-06] MEDS: ENOXAPARIN 40 MG/0.4 ML SQ SCH (21:01)
[2019-01-07] MEDS: LORazepam 1MG TABLET PO PRN ×3 (01:15→19:38)
[2019-01-07 01:19] VITALS: BP 125/83
[2019-01-07] MEDS: ASPIRIN 325 MG TABLET PO SCH (05:53)
[2019-01-07 06:58] VITALS: BP 127/82
[2019-01-07 13:04] VITALS: BP 128/74
[2019-01-07 19:08] VITALS: BP 121/68
[2019-01-07] MEDS: ENOXAPARIN 40 MG/0.4 ML SQ SCH (19:38)
[2019-01-07] MEDS: ACETAMINOPHEN 325 MG TABLET PO PRN (19:38)
[2019-01-08 01:09] VITALS: BP 136/85
[2019-01-08] MEDS: ACETAMINOPHEN 325 MG TABLET PO PRN ×4 (01:44→20:55)
[2019-01-08] MEDS: LORazepam 1MG TABLET PO PRN ×4 (01:45→20:55)
[2019-01-08] MEDS: ASPIRIN 325 MG TABLET PO SCH (05:42)
[2019-01-08 06:43] VITALS: BP 109/71
[2019-01-08 14:26] VITALS: BP 130/82
[2019-01-08] MEDS: ENOXAPARIN 40 MG/0.4 ML SQ SCH (19:13)
[2019-01-08 20:18] VITALS: BP 118/81
[2019-01-09 01:04] VITALS: BP 128/87
[2019-01-09] MEDS: LORazepam 1MG TABLET PO PRN ×4 (03:05→21:24)
[2019-01-09] MEDS: ACETAMINOPHEN 325 MG TABLET PO PRN ×4 (03:05→21:24)
[2019-01-09 07:34] VITALS: BP 111/79
[2019-01-09] MEDS: ASPIRIN 325 MG TABLET PO SCH (09:06)
[2019-01-09 12:34] VITALS: BP 124/78
[2019-01-09 18:46] VITALS: BP 121/75
[2019-01-09] MEDS: ENOXAPARIN 40 MG/0.4 ML SQ SCH (18:56)
[2019-01-10 00:40] VITALS: BP 117/75
[2019-01-10] MEDS: ACETAMINOPHEN 325 MG TABLET PO PRN ×3 (04:04→17:52)
[2019-01-10] MEDS: LORazepam 1MG TABLET PO PRN ×3 (04:04→17:52)
[2019-01-10] MEDS: ASPIRIN 325 MG TABLET PO SCH (05:18)
[2019-01-10 07:38] VITALS: BP 119/76
[2019-01-10 13:19] VITALS: BP 131/80
[2019-01-10 18:42] VITALS: BP 132/77
[2019-01-10] MEDS: ENOXAPARIN 40 MG/0.4 ML SQ SCH (20:35)
[2019-01-11] MEDS: LORazepam 1MG TABLET PO PRN ×3 (00:48→13:21)
[2019-01-11] MEDS: ACETAMINOPHEN 325 MG TABLET PO PRN ×3 (00:48→13:21)
[2019-01-11 02:25] VITALS: BP 108/73
[2019-01-11] MEDS: ASPIRIN 325 MG TABLET PO SCH (06:23)
[2019-01-11 07:37] VITALS: BP 102/58
[2019-01-11 12:38] VITALS: BP 112/75
== END 2019-01-11 18:24 | disposition home or self-care (01) | DRG 303 ==
LOC: ED 14:17 → OBSVTOIN 19:02 → EDIP 19:02 → INTOOBSV 19:02 → 3NE 01-02 14:14
PROVIDERS: ADMIT Family Medicine; ATTEND Family Medicine
DX: I25.10 Atherosclerotic heart disease of native coronary artery without angina pectoris (principal); R45.851 Suicidal ideations; Z68.1 Body mass index [BMI] 19.9 or less, adult; M25.552 Pain in left hip; E83.42 Hypomagnesemia; E87.6 Hypokalemia; F10.220 Alcohol dependence with intoxication, uncomplicated; F17.200 Nicotine dependence, unspecified, uncomplicated; F31.9 Bipolar disorder, unspecified; I10 Essential (primary) hypertension; I48.91 Unspecified atrial fibrillation; J44.9 Chronic obstructive pulmonary disease, unspecified; Z59.0 Homelessness; Z87.01 Personal history of pneumonia (recurrent); I25.2 Old myocardial infarction; Z91.81 History of falling
CPT/HCPCS: 36415; 78452; 80048; 80053; 80307; 80329; 81003; 83690; 83735; 84484; 85025; 93005; 93017; 99285; G0378; J2785; A9502; C9898; G0480; J1630; J3475

== ENCOUNTER 2019-02-03 20:56 | Emergency (ER) | payer MEDICARE, MEDICAID ==
[~2019-02-03] VITALS: Ht 170.2 cm; Wt 54.9 kg
[~2019-02-03 20:56] MED LIST changes: +LORA-446 PO
[2019-02-03 21:02] VITALS: BP 130/78
--- NOTE | 2019-02-03 21:08 | NUR ---
BIB [facility]. Expressing desire to detox from EtOH. A&Ox4. Drinks 2 pints of vodka per day. Last drink was this afternoon. Not showing signs of detox at this time. Placed on NIBP and pulse ox. Will continue to monitor.
--- NOTE | 2019-02-03 22:18 | NUR ---
Attempted to ambulated. 2x assist and unsteady. Not safe for DC at this time. Provided with water.
--- NOTE | 2019-02-03 22:52 | NUR ---
REPORT RECEIVED FROM SCOT GR. ASSUMED CARE OF PT.
--- NOTE | 2019-02-03 23:46 | NUR ---
Patient/Caregiver given discharge instructions and they have confirmed that they understand the instructions. Patient ambulatory with steady gait.
== END 2019-02-03 23:47 | disposition home or self-care (01) ==
LOC: ED 22:23
DX: F10.120 Alcohol abuse with intoxication, uncomplicated (principal); Z72.9 Problem related to lifestyle, unspecified; I10 Essential (primary) hypertension; I25.2 Old myocardial infarction; J44.9 Chronic obstructive pulmonary disease, unspecified
CPT/HCPCS: 99283

== ENCOUNTER 2019-02-05 21:53 | Emergency (ER) | payer MEDICARE, MEDICAID ==
[~2019-02-05] VITALS: Ht 170.2 cm; Wt 67.0 kg
--- NOTE | 2019-02-05 22:19 | NUR ---
PT CALLED 911 THIS PM W/ MULTI C/O. STATES BILATERAL LOWER ABD PAIN. STATES FEELS LIKE SHARP STABBING. STATES HASNT DRANK ALCOHOL 1 DAY W/ HX OF ETOH ABUSE. MILDLY TREMULOUS HERE IN ED. STATES HAS NOT EATEN IN 3 DAYS BECAUSE OF NO MONEY. FSBG OF 60 BY [facility] AND GIVEN 125 ML D10 AND REPEAT SUGAR OF 112. GIVEN 100 MG THIAMINE EN ROUTE BY [facility]. C/O OF BILATERAL FLANK PAIN. NO OBVIOUS DEFORMITY, INTERNAL ROTATION AND FULL ROM NOTED. ALL STRENGTHS EQUAL AND STRONG. ALL MONITORING APPLIED. VSS. CALL LIGHT WITHIN REACH.
[2019-02-05] MEDS ORDERED: LORazepam 2 MG/ML, 1ML IVPush ONE (22:30)
[2019-02-05 22:42] LABS: BASOPHILS # (AUTO) 0.01 x10^3/uL (0-0.1); BASOPHILS % (AUTO) 0 % (0-1); EOSINOPHILS % (AUTO) 0 % (1-7); LYMPHOCYTES # (AUTO) 1.31 x10^3/uL (1-3.4); LYMPHOCYTES % (AUTO) 27 % (22-44); MD NO; MEAN CORPUSCULAR HEMOGLOBIN 32.9 pg (27.5-34.5); MEAN CORPUSCULAR HGB CONC 34.7 g/dL (33.2-36.2); MEAN PLATELET VOLUME 7.9 fL (7.4-10.4); MONOCYTES # (AUTO) 0.35 x10^3/uL (0.2-0.8); MONOCYTES % (AUTO) 7 % (2-9); NEUTROPHILS # (AUTO) 3.12 x10^3/uL (1.8-6.8); NEUTROPHILS % (AUTO) 65 % (42-75); PLATELET COUNT 152 x10^3/uL (130-400); RED BLOOD COUNT 3.75 x10^6/uL (4.38-5.82)
[2019-02-05 22:54] LABS: ALANINE AMINOTRANSFERASE 26 U/L (12-78); ALBUMIN 3.1 g/dL (3.4-5.0); ANION GAP 12 mmol/L (5-15); CALCIUM 7.9 mg/dL (8.5-10.1); CHLORIDE 106 mmol/L (98-107); CREATININE 0.65 mg/dL (0.7-1.3)
[2019-02-05 22:56] LABS: ALKALINE PHOSPHATASE 81 U/L (45-117); BILIRUBIN,TOTAL 0.4 mg/dL (0.2-1.0); TOTAL PROTEIN 5.9 g/dL (6.4-8.2)
--- NOTE | 2019-02-05 23:04 | NUR ---
PT ASSISTED TO RR AT THIS TIME. NO OTHER IMMEDIATE NEEDS.
[2019-02-05] MEDS ORDERED: LORazepam 2 MG/ML, 1ML ONE (23:18)
[2019-02-05 23:21] VITALS: BP 118/73
--- NOTE | 2019-02-05 23:41 | NUR ---
PT CONTINUOUSLY PULLING ALL MONITORING OFF. ADVISED FOR NEED. PT STILL REFUSING TO WEAR EQUIPMENT.
[2019-02-05] MEDS ORDERED: ONDANSETRON 2MG/ML, 2ML ONE (23:49)
--- NOTE | 2019-02-05 23:52 | NUR ---
PA AT BEDSIDE FOR REASSESSMENT. PT MEDICATED AND INFORMED OF POC. PT UPSET OF D/C. PT MAIN CONCERN OF "WHY CANT I JUST SLEEP IN HERE FOR THE NIGHT?"
[2019-02-06] MEDS ORDERED: ONDANSETRON 2MG/ML, 2ML IVPush ONE
== END 2019-02-06 00:05 | disposition home or self-care (01) ==
LOC: ED 23:46
DX: F10.231 Alcohol dependence with withdrawal delirium (principal); M16.0 Bilateral primary osteoarthritis of hip; I25.2 Old myocardial infarction; J44.9 Chronic obstructive pulmonary disease, unspecified; I10 Essential (primary) hypertension
CPT/HCPCS: 36415; 71045; 73523; 80053; 80307; 83690; 85025; 96374; 96375; 99284; J2060; J2405

== ENCOUNTER 2019-02-07 08:47 | Inpatient (IN) | payer MEDICARE, MEDICAID ==
[~2019-02-07] VITALS: Ht 165.1 cm; Wt 55.9 kg
--- NOTE | 2019-02-07 08:50 | NUR ---
BIB [facility] FOR C/O LOSS OF APPETITE. PT SUSTAINING SELF OFF ETOH, WATER, AND MUSCLE MILK X WKS. STATES LAST ETOH YESTERDAY AM. 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 PT REQUESTING ATIVAN. PT PLACED ON MONITORS. WARM BLANKET PROVIDED.
[2019-02-07] MEDS ORDERED: THIAMINE 100MG TABLET ONE (09:20)
--- NOTE | 2019-02-07 09:29 | NUR ---
PT RESTIGN ON GURNEY. REFUSING TO PROVIDE UA SAMPLE AT THIS TIME. URINAL LEFT AT BEDSIDE.
[2019-02-07] MEDS ORDERED: LORazepam 1MG TABLET PO ONE (09:30)
[2019-02-07] MEDS ORDERED: SODIUM CHLORIDE FLUSH 10ML SYR IVF ONE (09:30)
[2019-02-07] MEDS ORDERED: MAALOX/HYOSCYAMINE/LIDOCAINE 45 ML BTL PO ONE (09:30)
[2019-02-07] MEDS ORDERED: THIAMINE 100MG TABLET PO ONE (09:30)
[2019-02-07] MEDS ORDERED: LORazepam 1MG TABLET ONE (09:31)
[2019-02-07] MEDS ORDERED: MAALOX/HYOSCYAMINE/LIDOCAINE 45 ML BTL ONE (09:31)
[2019-02-07 09:34] LABS: BASOPHILS # (AUTO) 0.02 x10^3/uL (0-0.1); BASOPHILS % (AUTO) 0 % (0-1); EOSINOPHILS # (AUTO) 0.02 x10^3/uL (0-0.4); EOSINOPHILS % (AUTO) 0 % (1-7); LYMPHOCYTES # (AUTO) 1.08 x10^3/uL (1-3.4); LYMPHOCYTES % (AUTO) 20 % (22-44); MD NO; MEAN CORPUSCULAR HEMOGLOBIN 32.5 pg (27.5-34.5); MEAN CORPUSCULAR HGB CONC 33.7 g/dL (33.2-36.2); MEAN CORPUSCULAR VOLUME 96.3 fL (81-97); MEAN PLATELET VOLUME 7.5 fL (7.4-10.4); MONOCYTES # (AUTO) 0.43 x10^3/uL (0.2-0.8); MONOCYTES % (AUTO) 8 % (2-9); NEUTROPHILS # (AUTO) 3.79 x10^3/uL (1.8-6.8); NEUTROPHILS % (AUTO) 71 % (42-75); PLATELET COUNT 185 x10^3/uL (130-400); RED BLOOD COUNT 4.36 x10^6/uL (4.38-5.82); RED CELL DISTRIBUTION WIDTH 15.1 % (9.4-14.8)
[2019-02-07 09:43] LABS: ALANINE AMINOTRANSFERASE 29 U/L (12-78); ALBUMIN 3.2 g/dL (3.4-5.0); ANION GAP 19 mmol/L (5-15); CALCIUM 7.7 mg/dL (8.5-10.1); CHLORIDE 103 mmol/L (98-107); CREATININE 0.74 mg/dL (0.7-1.3)
[2019-02-07 09:45] LABS: ALKALINE PHOSPHATASE 87 U/L (45-117); BILIRUBIN,TOTAL 0.8 mg/dL (0.2-1.0); TOTAL PROTEIN 6.4 g/dL (6.4-8.2)
[2019-02-07 09:54] LABS: TROPONIN I < 0.015 ng/mL (0.000-0.045)
--- NOTE | 2019-02-07 10:28 | NUR ---
PT RESTING ON GURNEY. NADN. HUFF.
--- NOTE | 2019-02-07 10:50 | NUR ---
PT ATTEMPTED TO PROVIDE UA AND WAS UNABLE TO PROVIDE SAMPLE. PT REFUSED TO BE STRAIGHT CATH'D. ERP AWARE.
--- NOTE | 2019-02-07 11:14 | NUR ---
PT TO AND FROM RR W/ STANDBY ASSIST. PT SHEET CHANGED. PT RESTING ON CARISA. ROXIE. ALVINS.
[2019-02-07 11:16] LABS: MICROSCOPIC NOT IND
[2019-02-07 11:24] LABS: CULTURE INDICATED? NO
--- NOTE | 2019-02-07 11:53 | NUR ---
PT SLEEPING ON GURNEY. NADN. VSS. PER CONCEPCION AL OKAY FOR PT TO EAT. CARDIAC DIET TRAY ORDERED.
[2019-02-07] MEDS ORDERED: MAGNESIUM SULFATE PMX 2GM/50ML 50 ML IV ONE ×3 (12:00→15:30)
--- NOTE | 2019-02-07 12:01 | NUR ---
YELLOW SLIP SENT TO PHARMACY FOR MAG SULFATE.
--- NOTE | 2019-02-07 12:11 | NUR ---
REPORT GIVEN TO YENIFER, RECEIVING RN. ALL QUESTIONS ANSWERED. ROOM TO BE CHANGED THEN READY FOR TRANSPORT.
[2019-02-07] MEDS ORDERED: MAGNESIUM SULFATE PMX 2GM/50ML 50 ML ONE (12:20)
[2019-02-07] MEDS ORDERED: LORazepam 2 MG/ML, 1ML IVPush PRN (13:00)
[2019-02-07] MEDS ORDERED: ONDANSETRON ODT 4 MG PO PRN (13:00)
[2019-02-07] MEDS ORDERED: GABAPENTIN 300 MG CAPSULE PO PRN (13:00)
[2019-02-07] MEDS ORDERED: POLYETHYLENE GLYCOL 17 GM PACKET PO PRN (13:00)
[2019-02-07] MEDS ORDERED: LABETALOL 20 MG/4 ML IVPush PRN (13:00)
[2019-02-07] MEDS ORDERED: DOCUSATE 100 MG CAPSULE PO PRN (13:00)
[2019-02-07] MEDS ORDERED: ENALAPRILAT 1.25 MG/ML, 2ML IVPush PRN (13:00)
[2019-02-07] MEDS: D5%-0.9% NACL 1,000 ML IV SCH (13:00)
[2019-02-07] MEDS ORDERED: ONDANSETRON 2MG/ML, 2ML IVPush PRN (13:00)
[2019-02-07] MEDS ORDERED: BISACODYL 10 MG SUPP PR PRN (13:00)
[2019-02-07] MEDS: NICOTINE 14MG/24 HR PATCH.TD24 TD SCH (14:43)
[2019-02-07] MEDS: ENOXAPARIN 40 MG/0.4 ML SQ SCH (14:44)
[2019-02-07] MEDS: MAALOX/HYOSCYAMINE/LIDOCAINE 45 ML BTL PO PRN (14:50)
[2019-02-07 15:28] VITALS: BP 112/71
[2019-02-07 15:59] VITALS: BP 107/69
[2019-02-07 19:24] VITALS: BP 126/85
[2019-02-07] MEDS: FAMOTIDINE 20 MG TABLET PO SCH (20:40)
[2019-02-07] MEDS: ACETAMINOPHEN 325 MG TABLET PO PRN (20:40)
[2019-02-08 00:02] VITALS: BP 151/83
[2019-02-08] MEDS: D5%-0.9% NACL 1,000 ML IV SCH ×3 (02:30→17:47)
[2019-02-08 06:05] LABS: BASOPHILS # (AUTO) 0.02 x10^3/uL (0-0.1); BASOPHILS % (AUTO) 0 % (0-1); EOSINOPHILS # (AUTO) 0.06 x10^3/uL (0-0.4); EOSINOPHILS % (AUTO) 1 % (1-7); LYMPHOCYTES # (AUTO) 1.57 x10^3/uL (1-3.4); LYMPHOCYTES % (AUTO) 33 % (22-44); MD NO; MEAN CORPUSCULAR HEMOGLOBIN 32.9 pg (27.5-34.5); MEAN CORPUSCULAR HGB CONC 34.1 g/dL (33.2-36.2); MEAN CORPUSCULAR VOLUME 96.6 fL (81-97); MEAN PLATELET VOLUME 7.7 fL (7.4-10.4); MONOCYTES # (AUTO) 0.42 x10^3/uL (0.2-0.8); MONOCYTES % (AUTO) 9 % (2-9); NEUTROPHILS # (AUTO) 2.65 x10^3/uL (1.8-6.8); NEUTROPHILS % (AUTO) 56 % (42-75); PLATELET COUNT 173 x10^3/uL (130-400); RED BLOOD COUNT 3.84 x10^6/uL (4.38-5.82)
[2019-02-08 06:21] LABS: CALCIUM 7.5 mg/dL (8.5-10.1); CHLORIDE 109 mmol/L (98-107)
[2019-02-08 06:26] LABS: ALANINE AMINOTRANSFERASE 23 U/L (12-78); ALBUMIN 2.9 g/dL (3.4-5.0); ALKALINE PHOSPHATASE 78 U/L (45-117); ANION GAP 7 mmol/L (5-15); BILIRUBIN,TOTAL 0.2 mg/dL (0.2-1.0); CREATININE 0.69 mg/dL (0.7-1.3); TOTAL PROTEIN 5.4 g/dL (6.4-8.2)
[2019-02-08 08:00] VITALS: BP 157/90
[2019-02-08] MEDS: FAMOTIDINE 20 MG TABLET PO SCH ×2 (09:19→20:49)
[2019-02-08] MEDS: POTASSIUM CHLORIDE 20 MEQ TAB.ER.PRT PO SCH ×2 (09:19→20:48)
[2019-02-08] MEDS: THIAMINE 100MG TABLET PO SCH ×2 (09:20→20:49)
[2019-02-08] MEDS: NICOTINE 14MG/24 HR PATCH.TD24 TD SCH (13:19)
[2019-02-08] MEDS: ENOXAPARIN 40 MG/0.4 ML SQ SCH (13:19)
[2019-02-08] MEDS: LORazepam 0.5MG TABLET PO PRN ×3 (13:21→20:49)
[2019-02-08] MEDS: ACETAMINOPHEN 325 MG TABLET PO PRN ×2 (13:21→20:49)
[2019-02-08] MEDS: CALCIUM CARBONATE 500 MG TAB.CHEW PO PRN (13:57)
[2019-02-08 14:49] LABS: CLOSTRIDIUM DIFFICILE ANTIGEN POSITIVE; CLOSTRIDIUM DIFFICILE TOXIN POSITIVE (Negative)
[2019-02-08 15:53] VITALS: BP 145/87
[2019-02-08] MEDS: MAALOX/HYOSCYAMINE/LIDOCAINE 45 ML BTL PO PRN (16:48)
[2019-02-08] MEDS: VANCOMYCIN 50 MG/ML ORAL SUSP PO SCH ×2 (17:46→23:00)
[2019-02-08 18:40] VITALS: BP 150/79
[2019-02-08] MEDS ORDERED: VANCOMYCIN 50 MG/ML ORAL SUSP PO SCH (21:00)
[2019-02-09 01:13] VITALS: BP 131/90
[2019-02-09] MEDS: D5%-0.9% NACL 1,000 ML IV SCH ×3 (02:11→23:41)
[2019-02-09] MEDS: VANCOMYCIN 50 MG/ML ORAL SUSP PO SCH ×4 (05:20→20:11)
[2019-02-09 05:42] LABS: ALBUMIN 2.9 g/dL (3.4-5.0); ANION GAP 5 mmol/L (5-15); CALCIUM 7.9 mg/dL (8.5-10.1); CHLORIDE 111 mmol/L (98-107); CREATININE 0.45 mg/dL (0.7-1.3)
[2019-02-09] MEDS ORDERED: POTASSIUM CHLORIDE 60 MEQ in SODIUM CHLORIDE 0.9% 500 ML IV ONE (06:30)
[2019-02-09 08:15] VITALS: BP 100/69
[2019-02-09] MEDS ORDERED: MAGNESIUM SULFATE 3 GM in SODIUM CHLORIDE 0.9% 100 ML IV ONE (09:30)
[2019-02-09] MEDS: FAMOTIDINE 20 MG TABLET PO SCH ×2 (09:43→20:04)
[2019-02-09] MEDS: THIAMINE 100MG TABLET PO SCH ×2 (09:44→20:04)
[2019-02-09] MEDS: FOLIC ACID 1 MG TABLET PO SCH (09:44)
[2019-02-09 12:01] VITALS: BP 137/87
[2019-02-09] MEDS: ENOXAPARIN 40 MG/0.4 ML SQ SCH (13:16)
[2019-02-09] MEDS: NICOTINE 14MG/24 HR PATCH.TD24 TD SCH (13:17)
[2019-02-09] MEDS: MAALOX/HYOSCYAMINE/LIDOCAINE 45 ML BTL PO PRN (13:17)
[2019-02-09 18:59] VITALS: BP 146/83
[2019-02-09] MEDS: CALCIUM CARBONATE 500 MG TAB.CHEW PO PRN (23:43)
[2019-02-10] VITALS: BP 153/79
[2019-02-10] MEDS: VANCOMYCIN 50 MG/ML ORAL SUSP PO SCH ×4 (02:44→20:03)
[2019-02-10 06:56] VITALS: BP 157/91
[2019-02-10] MEDS: D5%-0.9% NACL 1,000 ML IV SCH (07:56)
[2019-02-10] MEDS: THIAMINE 100MG TABLET PO SCH ×2 (07:57→20:02)
[2019-02-10] MEDS: FOLIC ACID 1 MG TABLET PO SCH (07:57)
[2019-02-10] MEDS: FAMOTIDINE 20 MG TABLET PO SCH ×2 (07:57→20:02)
[2019-02-10 08:29] LABS: BASOPHILS # (AUTO) 0.02 x10^3/uL (0-0.1); BASOPHILS % (AUTO) 0 % (0-1); EOSINOPHILS # (AUTO) 0.07 x10^3/uL (0-0.4); EOSINOPHILS % (AUTO) 1 % (1-7); LYMPHOCYTES % (AUTO) 38 % (22-44); MD NO; MEAN CORPUSCULAR HEMOGLOBIN 32.3 pg (27.5-34.5); MEAN CORPUSCULAR HGB CONC 33.4 g/dL (33.2-36.2); MEAN CORPUSCULAR VOLUME 96.8 fL (81-97); MEAN PLATELET VOLUME 7.3 fL (7.4-10.4); MONOCYTES % (AUTO) 11 % (2-9); NEUTROPHILS % (AUTO) 49 % (42-75); PLATELET COUNT 252 x10^3/uL (130-400); RED BLOOD COUNT 4.42 x10^6/uL (4.38-5.82); RED CELL DISTRIBUTION WIDTH 15.4 % (9.4-14.8)
[2019-02-10 08:39] LABS: CALCIUM 8.5 mg/dL (8.5-10.1); CHLORIDE 108 mmol/L (98-107)
[2019-02-10 09:05] LABS: ALANINE AMINOTRANSFERASE 33 U/L (12-78); ALBUMIN 3.4 g/dL (3.4-5.0); ALKALINE PHOSPHATASE 83 U/L (45-117); ANION GAP 5 mmol/L (5-15); BILIRUBIN,TOTAL 0.1 mg/dL (0.2-1.0); CREATININE 0.52 mg/dL (0.7-1.3); TOTAL PROTEIN 6.7 g/dL (6.4-8.2)
[2019-02-10] MEDS: NICOTINE 14MG/24 HR PATCH.TD24 TD SCH (12:24)
[2019-02-10] MEDS: ENOXAPARIN 40 MG/0.4 ML SQ SCH (12:24)
[2019-02-10 13:00] VITALS: BP 141/97
[2019-02-10 18:50] VITALS: BP 139/71
[2019-02-11 01:25] VITALS: BP 159/96
[2019-02-11] MEDS: VANCOMYCIN 50 MG/ML ORAL SUSP PO SCH ×2 (02:38→07:45)
[2019-02-11 04:13] LABS: BASOPHILS # (AUTO) 0.02 x10^3/uL (0-0.1); BASOPHILS % (AUTO) 0 % (0-1); EOSINOPHILS # (AUTO) 0.11 x10^3/uL (0-0.4); EOSINOPHILS % (AUTO) 2 % (1-7); LYMPHOCYTES # (AUTO) 1.61 x10^3/uL (1-3.4); LYMPHOCYTES % (AUTO) 37 % (22-44); MD NO; MEAN CORPUSCULAR HEMOGLOBIN 32.4 pg (27.5-34.5); MEAN CORPUSCULAR HGB CONC 33.4 g/dL (33.2-36.2); MEAN CORPUSCULAR VOLUME 97.1 fL (81-97); MEAN PLATELET VOLUME 7.3 fL (7.4-10.4); MONOCYTES # (AUTO) 0.63 x10^3/uL (0.2-0.8); MONOCYTES % (AUTO) 14 % (2-9); NEUTROPHILS # (AUTO) 2.01 x10^3/uL (1.8-6.8); NEUTROPHILS % (AUTO) 46 % (42-75); PLATELET COUNT 236 x10^3/uL (130-400); RED BLOOD COUNT 4.22 x10^6/uL (4.38-5.82); RED CELL DISTRIBUTION WIDTH 15.6 % (9.4-14.8)
[2019-02-11 04:30] LABS: ANION GAP 7 mmol/L (5-15); CALCIUM 8.5 mg/dL (8.5-10.1); CHLORIDE 105 mmol/L (98-107)
[2019-02-11 04:31] LABS: CREATININE 0.71 mg/dL (0.7-1.3)
[2019-02-11] MEDS: THIAMINE 100MG TABLET PO SCH (07:45)
[2019-02-11] MEDS: FOLIC ACID 1 MG TABLET PO SCH (07:45)
[2019-02-11] MEDS: FAMOTIDINE 20 MG TABLET PO SCH (07:45)
[2019-02-11] MEDS ORDERED: VANC1VIA3 PO (08:38)
[2019-02-11 08:47] VITALS: BP 137/84
[2019-02-11] MEDS ORDERED: LIDODERM 5% PATCH TD ONE (09:00)
== END 2019-02-11 11:16 | disposition home or self-care (01) | DRG 372 ==
LOC: ED 09:34 → EDIP 11:47 → 4EST 12:54 → 4WST 17:21
PROVIDERS: ADMIT Internal Medicine; ATTEND Internal Medicine
DX: A04.72 Enterocolitis due to Clostridium difficile, not specified as recurrent (principal); F10.239 Alcohol dependence with withdrawal, unspecified; E44.0 Moderate protein-calorie malnutrition; E88.89 Other specified metabolic disorders; E83.42 Hypomagnesemia; E87.6 Hypokalemia; F17.210 Nicotine dependence, cigarettes, uncomplicated; G43.909 Migraine, unspecified, not intractable, without status migrainosus; G89.29 Other chronic pain; I10 Essential (primary) hypertension; I25.2 Old myocardial infarction; I48.91 Unspecified atrial fibrillation; J44.9 Chronic obstructive pulmonary disease, unspecified; Z66 Do not resuscitate; R27.0 Ataxia, unspecified; M25.559 Pain in unspecified hip; Z82.5 Family history of asthma and other chronic lower respiratory diseases; Z87.01 Personal history of pneumonia (recurrent); Z68.20 Body mass index [BMI] 20.0-20.9, adult
CPT/HCPCS: 36415; 80048; 80053; 80307; 81003; 82040; 83690; 83735; 84100; 84484; 85025; 87324; 93005; 99285; G0378; J1650; J2405; J3370; J3475; J3480; J7042; J7040

== ENCOUNTER 2019-02-13 13:45 | Emergency (ER) | payer MEDICARE, MEDICAID ==
[~2019-02-13] VITALS: Ht 167.6 cm; Wt 60.0 kg
[~2019-02-13 13:45] MED LIST changes: +VANC1VIA3 PO
[2019-02-13 13:51] VITALS: BP 135/100
--- NOTE | 2019-02-13 13:57 | NUR ---
pt to ed for llq abd pain for unknown length of time. pt states he has a "bacterial virus that's flaring up." pt reports was recently admitted for same and was on unknown abx. pt unable to recall medication or if he took medication. mild nausea en route. 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 pt reports drinking 1/2 pint liquor every morning. pt also reports syncopal episode while lying in bed this am. pt states he is sure he didn't fall asleep. connected to monitors. tachy 110s, all other vss. edmd present for assessment. awaiting orders.
--- NOTE | 2019-02-13 14:17 | NUR ---
pt up to rr using walker to attempt ua sample.
--- NOTE | 2019-02-13 14:30 | NUR ---
pt unable to provide ua sample. requesting straight cath. male rn to straight cath.
--- NOTE | 2019-02-13 14:33 | NUR ---
tech to bedside to complete ekg.
[2019-02-13 14:34] LABS: BASOPHILS # (AUTO) 0.04 x10^3/uL (0-0.1); BASOPHILS % (AUTO) 1 % (0-1); EOSINOPHILS # (AUTO) 0.03 x10^3/uL (0-0.4); EOSINOPHILS % (AUTO) 0 % (1-7); LYMPHOCYTES # (AUTO) 2.31 x10^3/uL (1-3.4); LYMPHOCYTES % (AUTO) 30 % (22-44); MD NO; MEAN CORPUSCULAR HEMOGLOBIN 32.9 pg (27.5-34.5); MEAN CORPUSCULAR VOLUME 96.9 fL (81-97); MEAN PLATELET VOLUME 7.2 fL (7.4-10.4); MONOCYTES # (AUTO) 1.18 x10^3/uL (0.2-0.8); MONOCYTES % (AUTO) 15 % (2-9); NEUTROPHILS # (AUTO) 4.28 x10^3/uL (1.8-6.8); NEUTROPHILS % (AUTO) 55 % (42-75); PLATELET COUNT 443 x10^3/uL (130-400); RED BLOOD COUNT 4.52 x10^6/uL (4.38-5.82)
[2019-02-13 14:43] LABS: ALBUMIN 3.7 g/dL (3.4-5.0); ANION GAP 9 mmol/L (5-15); CALCIUM 8.8 mg/dL (8.5-10.1); CHLORIDE 107 mmol/L (98-107); CREATININE 0.84 mg/dL (0.7-1.3)
[2019-02-13] MEDS ORDERED: LIDOCAINE 2%,20 ML JEL.PF.APP MM ONE (14:47)
[2019-02-13] MEDS ORDERED: IBUPROFEN 600 MG TABLET ONE (15:06)
--- NOTE | 2019-02-13 15:09 | NUR ---
STRAIGHT CATH PERFORMED AND URINE SPECIMEN WALKED TO LAB. PATIEMT COMPLAINING OF PAIN. DR. NGUYEN NOTIFIED. ZAIDA ORDERED AND GIVEN.
--- NOTE | 2019-02-13 15:11 | NUR ---
ua collected via straight cath by male RN. ua sent.
[2019-02-13] MEDS ORDERED: IBUPROFEN 200 MG TABLET PO ONE (15:30)
[2019-02-13 15:32] LABS: CULTURE INDICATED? NO; MICROSCOPIC NOT IND
--- NOTE | 2019-02-13 15:40 | NUR ---
ALL RESULTS BACK AT THIS TIME. CHART UP FOR RECHECK.
--- NOTE | 2019-02-13 15:45 | NUR ---
edmd to bedside to update on poc. awaiting dispo.
== END 2019-02-13 16:15 | disposition home or self-care (01) ==
LOC: ED 16:09
DX: R10.32 Left lower quadrant pain (principal); R55 Syncope and collapse; I10 Essential (primary) hypertension; I48.91 Unspecified atrial fibrillation; J44.9 Chronic obstructive pulmonary disease, unspecified; I25.2 Old myocardial infarction; Z72.9 Problem related to lifestyle, unspecified; F17.200 Nicotine dependence, unspecified, uncomplicated; M19.90 Unspecified osteoarthritis, unspecified site
CPT/HCPCS: 36415; 80048; 81003; 82040; 85025; 93005; 99284

== ENCOUNTER 2021-01-01 22:26 | Emergency (ER) | payer MEDICARE, MEDICAID ==
[~2021-01-01] VITALS: Ht 167.6 cm; Wt 60.0 kg
[~2021-01-01 22:26] MED LIST changes: -FOLI-17 PO; +FOLI1TAB32 PO; -HYDR50TA13 PO; +HYDR50TA99 PO; -PANT40TA5 PO; +PANT40TA6 PO
[2021-01-01 22:29] VITALS: BP 137/101
--- NOTE | 2021-01-01 22:29 | NUR ---
INITIAL PT CONTACT. PT PRESENTS TO VIA C/O "LEFT KIDNEY PAIN" X5 DAYS WITH N/V. "MY URINE IS REALLY DARK. I CAN'T PEE RIGHT NOW, I NEED SOMETHINNG FOR THIS PAIN RIGHT NOW. YOU BETTER GO GET THE DOCTOR NOW!" PT WALKED INTO ED WITH EMS, STEADY GAIT. PT SITTING UPRIGHT ON GURNEY, CONTINUALLY MOANING AND MOVING AROUND ON GURNEY. PT CONTINUES TO SHOUT "I NEED THE FUCKING DOCTOR RIGHT THIS SECOND OR WE WILL HAVE AN ISSUE". CALL LIGHT IN REACH. AWAITING ERP AT THIS TIME
[2021-01-01] MEDS ORDERED: ONDANSETRON ODT 4 MG ONE (22:59)
[2021-01-01] MEDS ORDERED: KETOROLAC 30 MG/1 ML ONE (22:59)
[2021-01-01] MEDS ORDERED: ONDANSETRON ODT 4 MG PO ONE (23:00)
[2021-01-01] MEDS ORDERED: KETOROLAC 30 MG/1 ML IM ONE (23:00)
[2021-01-01 23:21] LABS: BASOPHILS % (AUTO) 1 % (0-1); EOSINOPHILS % (AUTO) 0 % (1-7); LYMPHOCYTES % (AUTO) 23 % (22-44); MEAN CORPUSCULAR HEMOGLOBIN 32.4 pg (27.5-34.5); MEAN PLATELET VOLUME 7.6 fL (7.4-10.4); MONOCYTES % (AUTO) 11 % (2-9); NEUTROPHILS % (AUTO) 66 % (42-75); PLATELET COUNT 315 x10^3/uL (130-400); RED CELL DISTRIBUTION WIDTH 12.8 % (9.4-14.8)
[2021-01-01 23:23] LABS: MD NO
[2021-01-01 23:27] LABS: ANION GAP 12 mmol/L (5-15); CALCIUM 8.5 mg/dL (8.5-10.1); CHLORIDE 104 mmol/L (98-107); CREATININE 0.89 mg/dL (0.7-1.3)
--- NOTE | 2021-01-01 23:41 | NUR ---
erp at bedside
--- NOTE | 2021-01-01 23:58 | NUR ---
PT TO CT
[2021-01-02 00:04] LABS: MICROSCOPIC AUTO
[2021-01-02 00:10] LABS: BILIRUBIN, DIRECT 0.3 mg/dL (0.1-0.2)
[2021-01-02 00:12] LABS: BILIRUBIN,INDIRECT 0.5 mg/dL (0.0-2.0); BILIRUBIN,TOTAL 0.8 mg/dL (0.2-1.0); TOTAL PROTEIN 7.7 g/dL (6.4-8.2)
--- NOTE | 2021-01-02 00:16 | NUR ---
PT AMBULATORY TO BATHROOM WITH STEADY GAIT. PT REFUSING REPEAT VITALS AT THIS TIME. NO ADDITIONAL NEEDS. CALL LIGHT IN REACH
[2021-01-02] MEDS ORDERED: ONDANSETRON ODT 4 MG ONE (00:55)
[2021-01-02] MEDS ORDERED: ONDANSETRON ODT 4 MG PO ONE (01:00)
--- NOTE | 2021-01-02 01:28 | NUR ---
Patient given discharge instructions and they have confirmed that they understand the instructions. Patient ambulatory with steady gait. Pt given taxi voucher upon d/c per erp order.
== END 2021-01-02 01:30 | disposition home or self-care (01) ==
LOC: ED 22:56
DX: N20.1 Calculus of ureter (principal); R11.0 Nausea; R10.9 Unspecified abdominal pain; M54.5 Low back pain; I48.91 Unspecified atrial fibrillation; J44.9 Chronic obstructive pulmonary disease, unspecified; I10 Essential (primary) hypertension; I25.2 Old myocardial infarction; F17.210 Nicotine dependence, cigarettes, uncomplicated
CPT/HCPCS: 36415; 74176; 80048; 80076; 81001; 83690; 85025; 96372; 99284; 99406; J1885; Q0162

== ENCOUNTER 2021-01-03 08:15 | Emergency (ER) | payer MEDICARE, MEDICAID ==
[~2021-01-03] VITALS: Ht 167.6 cm; Wt 61.3 kg
[2021-01-03] MEDS ORDERED: ONDANSETRON ODT 4 MG PO ONE (08:30)
[2021-01-03] MEDS ORDERED: LORazepam 1MG TABLET PO ONE (08:30)
--- NOTE | 2021-01-03 08:31 | NUR ---
Pt BIB EMS. Dry heaving and tremmors on arrival. Pt ambulatory with steady gait from gurney to bed and from bed to restroom. Roxanne OLIVAREZ at bedside for eval. Pt reports LLQ flank pain due to kidney stone, was seen here yesterday for this. Prescribed meds but didn't fill order.
[2021-01-03] MEDS ORDERED: ONDANSETRON ODT 4 MG ONE (08:38)
[2021-01-03] MEDS ORDERED: LORazepam 1MG TABLET ONE (08:39)
--- NOTE | 2021-01-03 08:49 | NUR ---
Pt medicated per DEC. Discussed POC. Pt continiously removing BP and pulse ox.
--- NOTE | 2021-01-03 09:05 | NUR ---
PT requesting pain medication. Discussed with Roxanne OLIVAREZ. Orders for toradol IM recieved.
[2021-01-03] MEDS ORDERED: KETOROLAC 30 MG/1 ML ONE (09:07)
[2021-01-03] MEDS ORDERED: KETOROLAC 30 MG/1 ML IM ONE (09:30)
[2021-01-03 09:49] VITALS: BP 130/71
--- NOTE | 2021-01-03 09:50 | NUR ---
Pt sleeping when this RN entered room, resps even and unlabored. Pt awakens easily, A&O x4. Pt reports pain improved after medications.
== END 2021-01-03 09:54 | disposition home or self-care (01) ==
LOC: ED 09:04
DX: F10.10 Alcohol abuse, uncomplicated (principal); G89.29 Other chronic pain; M54.5 Low back pain; R10.9 Unspecified abdominal pain; R11.2 Nausea with vomiting, unspecified; I25.2 Old myocardial infarction; J44.9 Chronic obstructive pulmonary disease, unspecified; F17.210 Nicotine dependence, cigarettes, uncomplicated; Z72.9 Problem related to lifestyle, unspecified; Y90.0 Blood alcohol level of less than 20 mg/100 ml
CPT/HCPCS: 96372; 99283; J1885; Q0162

== ENCOUNTER 2021-01-15 14:50 | Emergency (ER) | payer MEDICARE, MEDICAID ==
[~2021-01-15] VITALS: Ht 167.6 cm; Wt 62.0 kg
[2021-01-15 14:59] VITALS: BP 126/74
--- NOTE | 2021-01-15 15:25 | NUR ---
LUIS FOR SI THOUGHTS. PT STATES HE WANTS TO HANG HIMSELF STATING, "I WILL FIND SUPPLIES". PT ALSO STATES HE CHECKED HIMSELF OUT OF [facility] "AND I REGRET THAT DECISION NOW, I WANT TO GO BACK". PT IN HOSPITAL GOWN, ALL PERSONAL BELONGINGS REMOVED AND PLACED IN LOCKER. GARAGE DOORS DOWN X2, SITTER AT DOORWAY. PT REQUESTING FOOD. UA COLLECTED AND SENT TO LAB.
--- NOTE | 2021-01-15 15:39 | NUR ---
RED ROBYN PLACED IN LOCKER.
[2021-01-15 15:46] LABS: AMPHETAMINE SCREEN, URINE Positive (Negative); BARBITURATE SCREEN, URINE Negative (Negative); BENZODIAZEPINE SCREEN, URINE Negative (Negative); CANNABINOID SCREEN, URINE Positive (Negative); COCAINE SCREEN, URINE Negative (Negative); METHADONE SCREEN, URINE Negative (Negative); OPIATE SCREEN, URINE Positive (Negative)
[2021-01-15 15:50] LABS: BASOPHILS % (AUTO) 1 % (0-1); EOSINOPHILS % (AUTO) 0 % (1-7); LYMPHOCYTES % (AUTO) 15 % (22-44); MD NO; MEAN CORPUSCULAR HEMOGLOBIN 32.9 pg (27.5-34.5); MEAN CORPUSCULAR HGB CONC 35.1 g/dL (33.2-36.2); MEAN PLATELET VOLUME 8.1 fL (7.4-10.4); MONOCYTES % (AUTO) 10 % (2-9); NEUTROPHILS % (AUTO) 74 % (42-75); PLATELET COUNT 405 x10^3/uL (130-400); RED BLOOD COUNT 4.67 x10^6/uL (4.38-5.82); RED CELL DISTRIBUTION WIDTH 13.5 % (9.4-14.8)
[2021-01-15 15:56] LABS: ALBUMIN 3.3 g/dL (3.4-5.0); ANION GAP 12 mmol/L (5-15); CALCIUM 8.4 mg/dL (8.5-10.1); CHLORIDE 108 mmol/L (98-107); CREATININE 0.88 mg/dL (0.7-1.3); SALICYLATE LEVEL 1.9 mg/dL (2.8-20.0)
--- NOTE | 2021-01-15 17:00 | NUR ---
PT IN RESTING IN BED. SITTER AT DOORWAY, SI PRECAUTIONS IN PLACE.
--- NOTE | 2021-01-15 18:00 | NUR ---
PT SLEEPING, RESP EVEN AND UNLABORED. SITTER AT DOORWAY
[2021-01-15] MEDS ORDERED: SUMATRIPTAN 6MG/0.5ML SQ ONE ×2 (19:00→19:20)
--- NOTE | 2021-01-15 19:52 | NUR ---
TP RN: U ACCEPTING PT PENDING COVID SWAB
--- NOTE | 2021-01-15 19:57 | NUR ---
jerald dyer collected and walked to lab
--- NOTE | 2021-01-15 21:22 | NUR ---
REPORT GIVEN TO CONNIE ELLISON
[2021-01-16] MEDS ORDERED: ALBU90AE2 INH (00:51)
[2021-01-16] MEDS ORDERED: HYDR50TA99 PO (00:51)
[2021-01-16] MEDS ORDERED: OMEP20CA20 PO (00:51)
== END 2021-01-15 22:00 ==
LOC: ED 15:32
DX: F33.9 Major depressive disorder, recurrent, unspecified (principal); Z20.822 Contact with and (suspected) exposure to COVID-19; F15.10 Other stimulant abuse, uncomplicated; F19.10 Other psychoactive substance abuse, uncomplicated; I25.2 Old myocardial infarction; I10 Essential (primary) hypertension; J44.9 Chronic obstructive pulmonary disease, unspecified; I48.91 Unspecified atrial fibrillation; E16.2 Hypoglycemia, unspecified
CPT/HCPCS: 36415; 80048; 80143; 80179; 80307; 80320; 82040; 85025; 87426; 96372; 99285; J3030; G0480

== ENCOUNTER 2021-01-15 19:05 | Inpatient (IN) | payer MEDICARE, MEDICAID ==
[~2021-01-15] VITALS: Ht 167.6 cm; Wt 59.5 kg
[2021-01-15] MEDS ORDERED: POLYETHYLENE GLYCOL 17 GM PACKET PO PRN (19:30)
[2021-01-15] MEDS ORDERED: ACETAMINOPHEN 325 MG TABLET PO PRN (19:30)
[2021-01-15] MEDS ORDERED: BISACODYL 10 MG SUPP PR PRN (19:30)
[2021-01-15 22:00] VITALS: BP 122/61
[2021-01-15] MEDS: DIVALPROEX 250 MG TABLET.DR PO SCH (22:50)
[2021-01-15 23:31] LABS: MICROSCOPIC NOT IND
[2021-01-16] MEDS ORDERED: OMEP20CA20 PO (00:51)
[2021-01-16] MEDS ORDERED: HYDR50TA99 PO (00:51)
[2021-01-16] MEDS ORDERED: ALBU90AE2 INH (00:51)
[2021-01-16 07:40] VITALS: BP 146/80
[2021-01-16 07:48] LABS: BILIRUBIN, DIRECT 0.2 mg/dL (0.1-0.2); BILIRUBIN,INDIRECT 0.6 mg/dL (0.0-2.0); BILIRUBIN,TOTAL 0.8 mg/dL (0.2-1.0); FREE T4 (FREE THYROXINE) 1.16 ng/dL (0.76-1.46); LDL/HDL RATIO 0.7 (0.5-3.0); TOTAL PROTEIN 6.5 g/dL (6.4-8.2)
[2021-01-16] MEDS ORDERED: ESCITALOPRAM 10MG TABLET PO SCH (09:00)
[2021-01-16] MEDS: ALBUTEROL HFA 90 MCG/SPRAY INH PRN ×2 (11:46→18:54)
[2021-01-16] MEDS: DOCUSATE 100 MG CAPSULE PO PRN (11:53)
[2021-01-16] MEDS ORDERED: ONDANSETRON ODT 4 MG ONE (16:14)
[2021-01-16] MEDS ORDERED: ONDANSETRON 4 MG TABLET PO PRN (16:30)
[2021-01-16] MEDS ORDERED: ONDANSETRON ODT 4 MG PO PRN (16:30)
[2021-01-16 19:31] VITALS: BP 134/80
[2021-01-16] MEDS: LORazepam 0.5MG TABLET PO PRN (19:38)
[2021-01-16] MEDS: DIVALPROEX 250 MG TABLET.DR PO SCH (20:54)
[2021-01-17] MEDS: OMEPRAZOLE 20 MG CAPSULE.DR PO SCH (06:14)
[2021-01-17 07:59] VITALS: BP 116/73
[2021-01-17] MEDS: LORazepam 0.5MG TABLET PO PRN (08:25)
[2021-01-17] MEDS ORDERED: ESCITALOPRAM 10MG TABLET PO SCH (09:00)
[2021-01-17] MEDS: DOCUSATE 100 MG CAPSULE PO PRN (14:31)
[2021-01-17] MEDS: ALBUTEROL HFA 90 MCG/SPRAY INH PRN ×2 (14:31→19:28)
[2021-01-17] MEDS: IBUPROFEN 600 MG TABLET PO PRN (14:31)
[2021-01-17 20:12] VITALS: BP 128/79
[2021-01-17] MEDS: CALCIUM CARBONATE 500 MG TAB.CHEW PO PRN (20:32)
[2021-01-17] MEDS: DIVALPROEX 250 MG TABLET.DR PO SCH (20:32)
[2021-01-18] MEDS: OMEPRAZOLE 20 MG CAPSULE.DR PO SCH (05:55)
[2021-01-18 07:30] VITALS: BP 151/87
[2021-01-18] MEDS: ALBUTEROL HFA 90 MCG/SPRAY INH PRN ×2 (07:57→14:31)
[2021-01-18] MEDS: ESCITALOPRAM 10MG TABLET PO SCH (08:52)
[2021-01-18] MEDS: LORazepam 0.5MG TABLET PO PRN ×3 (09:49→20:49)
[2021-01-18 19:30] VITALS: BP_SYST 119; BP_SYST 125; BP_DIAS 80
[2021-01-18] MEDS: DIVALPROEX 250 MG TABLET.DR PO SCH (20:03)
[2021-01-18] MEDS: IBUPROFEN 600 MG TABLET PO PRN (20:03)
[2021-01-18] MEDS: TRAZODONE 50MG TABLET PO PRN (20:03)
[2021-01-19] MEDS: OMEPRAZOLE 20 MG CAPSULE.DR PO SCH (05:30)
[2021-01-19 07:58] VITALS: BP 119/75
[2021-01-19] MEDS: LORazepam 0.5MG TABLET PO PRN ×2 (08:30→15:16)
[2021-01-19] MEDS: ESCITALOPRAM 10MG TABLET PO SCH (08:30)
[2021-01-19] MEDS: ALBUTEROL HFA 90 MCG/SPRAY INH PRN (10:20)
[2021-01-19] MEDS: IBUPROFEN 600 MG TABLET PO PRN (13:05)
[2021-01-19 19:17] VITALS: BP 131/80
[2021-01-19] MEDS: DIVALPROEX 250 MG TABLET.DR PO SCH (21:20)
[2021-01-19] MEDS: TRAZODONE 50MG TABLET PO PRN (21:31)
[2021-01-20] MEDS: OMEPRAZOLE 20 MG CAPSULE.DR PO SCH (05:33)
[2021-01-20 07:30] VITALS: BP 134/85
[2021-01-20] MEDS: ESCITALOPRAM 10MG TABLET PO SCH (08:27)
[2021-01-20] MEDS: ALBUTEROL HFA 90 MCG/SPRAY INH PRN ×2 (08:27→15:50)
[2021-01-20] MEDS: LORazepam 0.5MG TABLET PO PRN ×2 (08:27→15:50)
[2021-01-20 19:50] VITALS: BP 131/79
[2021-01-20] MEDS: DIVALPROEX 250 MG TABLET.DR PO SCH (20:44)
[2021-01-20] MEDS: TRAZODONE 50MG TABLET PO PRN (20:44)
[2021-01-21] MEDS: OMEPRAZOLE 20 MG CAPSULE.DR PO SCH (05:46)
[2021-01-21 07:31] VITALS: BP 119/76
[2021-01-21] MEDS: ESCITALOPRAM 10MG TABLET PO SCH (08:43)
[2021-01-21] MEDS: LORazepam 0.5MG TABLET PO PRN ×2 (09:08→16:33)
[2021-01-21] MEDS: ALBUTEROL HFA 90 MCG/SPRAY INH PRN (09:16)
[2021-01-21] MEDS: IBUPROFEN 600 MG TABLET PO PRN (16:33)
[2021-01-21 19:39] VITALS: BP 128/75
[2021-01-21] MEDS: DIVALPROEX 250 MG TABLET.DR PO SCH (20:11)
[2021-01-21] MEDS: TRAZODONE 50MG TABLET PO PRN (20:11)
[2021-01-22] MEDS: OMEPRAZOLE 20 MG CAPSULE.DR PO SCH (06:18)
[2021-01-22 08:04] VITALS: BP 125/74
[2021-01-22] MEDS: ESCITALOPRAM 10MG TABLET PO SCH (08:07)
[2021-01-22] MEDS: ALBUTEROL HFA 90 MCG/SPRAY INH PRN (10:29)
[2021-01-22] MEDS: IBUPROFEN 600 MG TABLET PO PRN (12:50)
[2021-01-22] MEDS: LORazepam 0.5MG TABLET PO PRN (17:59)
[2021-01-22 19:19] VITALS: BP 125/76
[2021-01-22] MEDS: CALCIUM CARBONATE 500 MG TAB.CHEW PO PRN (20:28)
[2021-01-22] MEDS: TRAZODONE 50MG TABLET PO PRN (20:28)
[2021-01-22] MEDS: DIVALPROEX 250 MG TABLET.DR PO SCH (20:28)
[2021-01-23] MEDS: OMEPRAZOLE 20 MG CAPSULE.DR PO SCH (06:22)
[2021-01-23 07:38] VITALS: BP 126/74
[2021-01-23] MEDS: ESCITALOPRAM 10MG TABLET PO SCH (08:06)
[2021-01-23] MEDS: LORazepam 0.5MG TABLET PO PRN ×3 (08:06→20:45)
[2021-01-23] MEDS: ALBUTEROL HFA 90 MCG/SPRAY INH PRN (15:17)
[2021-01-23] MEDS: IBUPROFEN 600 MG TABLET PO PRN (15:17)
[2021-01-23 19:38] VITALS: BP 113/73
[2021-01-23] MEDS: DIVALPROEX 250 MG TABLET.DR PO SCH (20:44)
[2021-01-24] MEDS: OMEPRAZOLE 20 MG CAPSULE.DR PO SCH (05:57)
[2021-01-24 07:34] VITALS: BP 114/81
[2021-01-24] MEDS: ESCITALOPRAM 10MG TABLET PO SCH (09:44)
[2021-01-24] MEDS: LORazepam 0.5MG TABLET PO PRN (10:05)
[2021-01-24] MEDS: ALBUTEROL HFA 90 MCG/SPRAY INH PRN (10:30)
[2021-01-24 18:29] VITALS: BP 110/72
[2021-01-24] MEDS: TRAZODONE 50MG TABLET PO PRN (21:31)
[2021-01-24] MEDS: DIVALPROEX 250 MG TABLET.DR PO SCH (21:31)
[2021-01-25] MEDS: OMEPRAZOLE 20 MG CAPSULE.DR PO SCH (05:41)
[2021-01-25 07:39] VITALS: BP 118/75
[2021-01-25] MEDS: LORazepam 0.5MG TABLET PO PRN (08:54)
[2021-01-25] MEDS: ESCITALOPRAM 10MG TABLET PO SCH (08:56)
[2021-01-25] MEDS: IBUPROFEN 600 MG TABLET PO PRN (16:28)
[2021-01-25 19:35] VITALS: BP 110/70
[2021-01-25] MEDS: TRAZODONE 50MG TABLET PO PRN (21:39)
[2021-01-25] MEDS: DIVALPROEX 250 MG TABLET.DR PO SCH (21:39)
[2021-01-26] MEDS: OMEPRAZOLE 20 MG CAPSULE.DR PO SCH (05:29)
[2021-01-26 07:30] VITALS: BP 113/70
[2021-01-26] MEDS: ESCITALOPRAM 10MG TABLET PO SCH (08:50)
[2021-01-26] MEDS: ALBUTEROL HFA 90 MCG/SPRAY INH PRN (14:11)
[2021-01-26 19:23] VITALS: BP 123/73
[2021-01-26] MEDS: IBUPROFEN 600 MG TABLET PO PRN (20:17)
[2021-01-26] MEDS: DIVALPROEX 500 MG TABLET.DR PO SCH (20:17)
[2021-01-26] MEDS: TRAZODONE 50MG TABLET PO PRN (20:18)
[2021-01-27] MEDS: OMEPRAZOLE 20 MG CAPSULE.DR PO SCH (05:46)
[2021-01-27 07:46] VITALS: BP 110/78
[2021-01-27] MEDS: ESCITALOPRAM 10MG TABLET PO SCH (10:23)
[2021-01-27] MEDS: ALBUTEROL HFA 90 MCG/SPRAY INH PRN (17:03)
[2021-01-27 19:39] VITALS: BP 128/76
[2021-01-27] MEDS: DIVALPROEX 500 MG TABLET.DR PO SCH (20:35)
[2021-01-27] MEDS: IBUPROFEN 600 MG TABLET PO PRN (20:35)
[2021-01-27] MEDS: TRAZODONE 50MG TABLET PO PRN (20:35)
[2021-01-28] MEDS: OMEPRAZOLE 20 MG CAPSULE.DR PO SCH (05:40)
[2021-01-28] MEDS: ESCITALOPRAM 10MG TABLET PO SCH (07:41)
[2021-01-28 08:06] VITALS: BP 118/76
[2021-01-28] MEDS ORDERED: TRAZ50TA66 PO (14:19)
[2021-01-28] MEDS ORDERED: ESCI10TA97 PO (14:19)
[2021-01-28] MEDS ORDERED: OMEP-110 PO (14:19)
[2021-01-28] MEDS ORDERED: DIVA-61 PO (14:19)
[2021-01-28] MEDS ORDERED: ALBU18HF INH (14:19)
[2021-01-28] MEDS: ALBUTEROL HFA 90 MCG/SPRAY INH PRN (14:25)
[2021-01-28 19:43] VITALS: BP 100/66
[2021-01-28] MEDS: TRAZODONE 50MG TABLET PO PRN (21:09)
[2021-01-28] MEDS: DIVALPROEX 500 MG TABLET.DR PO SCH (21:10)
[2021-01-29] MEDS: OMEPRAZOLE 20 MG CAPSULE.DR PO SCH (05:51)
[2021-01-29] MEDS: IBUPROFEN 600 MG TABLET PO PRN (07:26)
[2021-01-29] MEDS: ESCITALOPRAM 10MG TABLET PO SCH (07:27)
[2021-01-29 07:52] VITALS: BP 128/80
[2021-01-29] MEDS: ALBUTEROL HFA 90 MCG/SPRAY INH PRN (11:28)
== END 2021-01-29 13:10 | disposition home or self-care (01) | DRG 885 ==
LOC: 4EST 22:08 → 3E 22:39
PROVIDERS: ADMIT Psychiatry & Neurology Psychosomatic Medicine; ATTEND Psychiatry & Neurology Psychosomatic Medicine
DX: F33.2 Major depressive disorder, recurrent severe without psychotic features (principal); K85.90 Acute pancreatitis without necrosis or infection, unspecified; R45.851 Suicidal ideations; I48.91 Unspecified atrial fibrillation; E78.5 Hyperlipidemia, unspecified; F10.20 Alcohol dependence, uncomplicated; G47.00 Insomnia, unspecified; F11.90 Opioid use, unspecified, uncomplicated; I10 Essential (primary) hypertension; J44.9 Chronic obstructive pulmonary disease, unspecified; F17.210 Nicotine dependence, cigarettes, uncomplicated; K21.9 Gastro-esophageal reflux disease without esophagitis; K59.00 Constipation, unspecified; M19.90 Unspecified osteoarthritis, unspecified site; Z79.899 Other long term (current) drug therapy; Z81.1 Family history of alcohol abuse and dependence
CPT/HCPCS: 36415; 71045; 80061; 80076; 81003; 82607; 84439; 84443; 93005; 94640; Q0162

== ENCOUNTER 2021-03-28 21:16 | Inpatient (IN) | payer MEDICARE, MEDICAID ==
[~2021-03-28] VITALS: Ht 167.6 cm; Wt 63.4 kg
[~2021-03-28 21:16] MED LIST changes: +ALBU18HF INH; +ALBU90AE2 INH; +DIVA-61 PO; +ESCI10TA97 PO; +OMEP-110 PO; +OMEP20CA20 PO; +TRAZ50TA66 PO; -VANC1VIA3 PO; +VANC1VIA36 PO
--- NOTE | 2021-03-28 21:21 | NUR ---
BIB [facility] FOR SOB X A COUPLE WEEKS AND WORSE OVER THE PAST 3 DAYS. C/O PRODUCTIVE COUGH, WORSE AT NIGHT. EMS GAVE DUONEB EN ROUTE. EKG DONE ON ARRIVAL TO ER. DENIES CP. PT USED RESCUE INHALER AT HOME. DENIES PAIN. PT ATTACHED TO ALL MONITORS. ASSESSMENT MADE BY DR THOMAS. CALL LIGHT ON LAP
[2021-03-28] MEDS ORDERED: SODIUM CHLORIDE 0.9% 1,000ML IVBOLUS ONE (21:30)
--- NOTE | 2021-03-28 21:41 | NUR ---
REPORT RECIEVED FROM KRISTA ELLISON. LABS DRAWN, FLUIDS RUNNING, AND CXR AT BEDSIDE AT THIS TIME
[2021-03-28] MEDS ORDERED: ONDANSETRON 2MG/ML, 2ML ONE (21:43)
[2021-03-28 21:51] LABS: BASOPHILS % (AUTO) 1 % (0-1); EOSINOPHILS % (AUTO) 1 % (1-7); LYMPHOCYTES % (AUTO) 32 % (22-44); MEAN CORPUSCULAR HEMOGLOBIN 33.2 pg (27.5-34.5); MEAN CORPUSCULAR HGB CONC 34.3 g/dL (33.2-36.2); MONOCYTES % (AUTO) 16 % (2-9); NEUTROPHILS % (AUTO) 50 % (42-75); PLATELET COUNT 268 x10^3/uL (130-400); RED BLOOD COUNT 4.77 x10^6/uL (4.38-5.82); RED CELL DISTRIBUTION WIDTH 14.3 % (9.4-14.8)
[2021-03-28 22:00] LABS: ALANINE AMINOTRANSFERASE 17 U/L (12-78); ALBUMIN 3.2 g/dL (3.4-5.0); ANION GAP 10 mmol/L (5-15); CALCIUM 8.5 mg/dL (8.5-10.1); CHLORIDE 109 mmol/L (98-107); CREATININE 0.65 mg/dL (0.7-1.3)
[2021-03-28] MEDS ORDERED: ONDANSETRON 2MG/ML, 2ML IVPush ONE (22:00)
[2021-03-28 22:04] LABS: ALKALINE PHOSPHATASE 77 U/L (45-117); BILIRUBIN,TOTAL 0.3 mg/dL (0.2-1.0); TOTAL PROTEIN 7.3 g/dL (6.4-8.2); TROPONIN I < 0.015 ng/mL (0.000-0.045)
[2021-03-28] MEDS ORDERED: ALBUTEROL 0.5%, 20ML ONE (22:42)
[2021-03-28] MEDS ORDERED: methylPREDNISolone SOD SUCC 125 MG/2 ML ONE (22:43)
[2021-03-28] MEDS ORDERED: ALBUTEROL 0.5%, 20ML NPPB SCH (23:00)
[2021-03-28] MEDS ORDERED: methylPREDNISolone SOD SUCC 125 MG/2 ML IVPB ONE (23:00)
[2021-03-29] MEDS ORDERED: ALBUTEROL SULFATE 2.5 MG/3 ML NPPB PRN (00:30)
[2021-03-29] MEDS ORDERED: POTASSIUM CHLORIDE 20 MEQ TAB.ER.PRT PO ONE (00:30)
[2021-03-29] MEDS ORDERED: TRAZODONE 50MG TABLET PO PRN (00:30)
[2021-03-29] MEDS ORDERED: POLYETHYLENE GLYCOL 17 GM PACKET PO PRN (01:00)
[2021-03-29] MEDS ORDERED: BISACODYL 10 MG SUPP PR PRN (01:00)
[2021-03-29] MEDS ORDERED: ACETAMINOPHEN 325 MG TABLET PO PRN (01:00)
[2021-03-29] MEDS ORDERED: OMNIPAQUE 350 MG/ML, 100ML BOTTLE ONE (01:00)
[2021-03-29] MEDS ORDERED: ONDANSETRON ODT 4 MG PO PRN (01:00)
--- NOTE | 2021-03-29 01:41 | NUR ---
Dominik arceo in [facility] - 03/29/21 at 0141 by BELLE REPORT GIVEN TO SCOT VALDOVINOS
--- NOTE | 2021-03-29 01:41 | NUR ---
REPORT GIVEN TO SCOT VALDOVINOS
[2021-03-29] MEDS ORDERED: AZITHROMYCIN 500 MG in SODIUM CHLORIDE 0.9% 250 ML IV ONE (02:00)
[2021-03-29] MEDS ORDERED: CEFTRIAXONE 1,000 MG in DEXTROSE 5% 50 ML IVPB ONE (02:00)
[2021-03-29 02:08] VITALS: BP 136/82
[2021-03-29] MEDS: CEFTRIAXONE 1,000 MG in DEXTROSE 5% 50 ML IV SCH (03:25)
[2021-03-29] MEDS: AZITHROMYCIN 500 MG in SODIUM CHLORIDE 0.9% 250 ML IV SCH (04:01)
[2021-03-29] MEDS: methylPREDNISolone SOD SUCC 125 MG/2 ML IVPush SCH ×4 (05:15→23:39)
[2021-03-29] MEDS ORDERED: ALBUTEROL/IPRATROPIUM 2.5MG/0.5MG, 3 ML NPPB SCH (07:00)
[2021-03-29 07:23] VITALS: BP 127/78
[2021-03-29] MEDS: SODIUM CHLORIDE FLUSH 10ML SYR IVF SCH ×2 (09:00→21:00)
[2021-03-29] MEDS: SENNA/DOCUSATE TABLET PO SCH (09:00)
[2021-03-29] MEDS: ESCITALOPRAM 10MG TABLET PO SCH (09:29)
[2021-03-29] MEDS: OMEPRAZOLE 20 MG CAPSULE.DR PO SCH (09:29)
[2021-03-29] MEDS: GUAIFENESIN/DM 200-20MG, 10ML UDC PO PRN (11:31)
[2021-03-29] MEDS: ALBUTEROL/IPRATROPIUM 2.5MG/0.5MG, 3 ML NPPB SCH ×2 (14:22→19:31)
[2021-03-29 14:23] VITALS: BP 135/86
[2021-03-29] MEDS ORDERED: LORazepam 1MG TABLET PO PRN ×4 (15:00)
[2021-03-29] MEDS ORDERED: LORazepam 0.5MG TABLET PO PRN (15:00)
[2021-03-29] MEDS ORDERED: LORazepam 2 MG/ML, 1ML IV PRN ×6 (15:00)
[2021-03-29] MEDS: ENOXAPARIN 40 MG/0.4 ML SQ SCH (16:26)
[2021-03-29] MEDS: CHLORDIAZEPOXIDE 25 MG CAPSULE PO SCH ×2 (16:26→20:59)
[2021-03-29 18:46] VITALS: BP 124/61
[2021-03-29] MEDS: DIVALPROEX 500 MG TABLET.DR PO SCH (20:59)
[2021-03-30 00:20] VITALS: BP 115/66
[2021-03-30] MEDS: CEFTRIAXONE 1,000 MG in DEXTROSE 5% 50 ML IV SCH (02:46)
[2021-03-30] MEDS: AZITHROMYCIN 500 MG in SODIUM CHLORIDE 0.9% 250 ML IV SCH (03:51)
[2021-03-30] MEDS: methylPREDNISolone SOD SUCC 125 MG/2 ML IVPush SCH ×4 (06:05→22:38)
[2021-03-30 06:45] LABS: BASOPHILS % (AUTO) 0 % (0-1); EOSINOPHILS % (AUTO) 0 % (1-7); LYMPHOCYTES % (AUTO) 8 % (22-44); MEAN CORPUSCULAR HEMOGLOBIN 33.2 pg (27.5-34.5); MEAN CORPUSCULAR HGB CONC 34.3 g/dL (33.2-36.2); MEAN PLATELET VOLUME 8.3 fL (7.4-10.4); MONOCYTES % (AUTO) 7 % (2-9); NEUTROPHILS % (AUTO) 84 % (42-75); PLATELET COUNT 251 x10^3/uL (130-400); RED BLOOD COUNT 4.21 x10^6/uL (4.38-5.82); RED CELL DISTRIBUTION WIDTH 14.1 % (9.4-14.8)
[2021-03-30 06:58] LABS: ALANINE AMINOTRANSFERASE 11 U/L (12-78); ALBUMIN 2.6 g/dL (3.4-5.0); ANION GAP 7 mmol/L (5-15); CALCIUM 8.5 mg/dL (8.5-10.1); CHLORIDE 112 mmol/L (98-107); CREATININE 0.67 mg/dL (0.7-1.3)
[2021-03-30 07:01] LABS: ALKALINE PHOSPHATASE 64 U/L (45-117); BILIRUBIN,TOTAL 0.2 mg/dL (0.2-1.0); TOTAL PROTEIN 6.3 g/dL (6.4-8.2)
[2021-03-30 07:02] VITALS: BP 128/77
[2021-03-30] MEDS: SODIUM CHLORIDE FLUSH 10ML SYR IVF SCH ×2 (09:00→21:39)
[2021-03-30] MEDS: THIAMINE 100MG TABLET PO SCH (09:00)
[2021-03-30] MEDS: AMPICILLIN/SULBACTAM 3 GM in SODIUM CHLORIDE 0.9% 100 ML IV SCH ×3 (09:05→21:30)
[2021-03-30] MEDS: OMEPRAZOLE 20 MG CAPSULE.DR PO SCH (09:06)
[2021-03-30] MEDS: SENNA/DOCUSATE TABLET PO SCH (09:06)
[2021-03-30] MEDS: DOXYCYCLINE 100MG TABLET PO SCH ×2 (09:06→20:13)
[2021-03-30] MEDS: ESCITALOPRAM 10MG TABLET PO SCH (09:06)
[2021-03-30] MEDS: FOLIC ACID 1 MG TABLET PO SCH (09:06)
[2021-03-30] MEDS: CHLORDIAZEPOXIDE 25 MG CAPSULE PO SCH ×5 (09:06→22:44)
[2021-03-30] MEDS: ALBUTEROL/IPRATROPIUM 2.5MG/0.5MG, 3 ML NPPB SCH ×3 (09:50→19:47)
[2021-03-30 13:25] VITALS: BP 139/82
[2021-03-30] MEDS: GUAIFENESIN/DM 200-20MG, 10ML UDC PO PRN ×2 (13:37→20:14)
[2021-03-30] MEDS: ENOXAPARIN 40 MG/0.4 ML SQ SCH (16:47)
[2021-03-30 19:10] VITALS: BP 132/73
[2021-03-30] MEDS: DIVALPROEX 500 MG TABLET.DR PO SCH (20:13)
[2021-03-31 00:50] VITALS: BP 120/72
[2021-03-31] MEDS: AMPICILLIN/SULBACTAM 3 GM in SODIUM CHLORIDE 0.9% 100 ML IV SCH ×4 (03:25→20:25)
[2021-03-31] MEDS: methylPREDNISolone SOD SUCC 125 MG/2 ML IVPush SCH ×4 (05:06→22:08)
[2021-03-31] MEDS: ALBUTEROL/IPRATROPIUM 2.5MG/0.5MG, 3 ML NPPB SCH ×3 (08:10→19:14)
[2021-03-31] MEDS: CHLORDIAZEPOXIDE 25 MG CAPSULE PO SCH (09:12)
[2021-03-31] MEDS: DOXYCYCLINE 100MG TABLET PO SCH ×2 (09:12→20:25)
[2021-03-31] MEDS: SODIUM CHLORIDE FLUSH 10ML SYR IVF SCH ×2 (09:12→20:25)
[2021-03-31] MEDS: SENNA/DOCUSATE TABLET PO SCH (09:12)
[2021-03-31] MEDS: OMEPRAZOLE 20 MG CAPSULE.DR PO SCH (09:12)
[2021-03-31] MEDS: FOLIC ACID 1 MG TABLET PO SCH (09:12)
[2021-03-31] MEDS: THIAMINE 100MG TABLET PO SCH (09:12)
[2021-03-31] MEDS: ESCITALOPRAM 10MG TABLET PO SCH (09:12)
[2021-03-31] MEDS: GUAIFENESIN/DM 200-20MG, 10ML UDC PO PRN (09:17)
[2021-03-31 15:40] VITALS: BP 136/81
[2021-03-31] MEDS: ENOXAPARIN 40 MG/0.4 ML SQ SCH (16:12)
[2021-03-31 18:45] VITALS: BP 127/72
[2021-03-31] MEDS: DIVALPROEX 500 MG TABLET.DR PO SCH (20:25)
[2021-04-01 00:28] VITALS: BP 137/81
[2021-04-01] MEDS: AMPICILLIN/SULBACTAM 3 GM in SODIUM CHLORIDE 0.9% 100 ML IV SCH ×3 (02:55→15:08)
[2021-04-01] MEDS: methylPREDNISolone SOD SUCC 125 MG/2 ML IVPush SCH ×3 (04:13→17:12)
[2021-04-01] MEDS: ALBUTEROL/IPRATROPIUM 2.5MG/0.5MG, 3 ML NPPB SCH ×2 (07:05→15:01)
[2021-04-01 07:20] VITALS: BP 154/92
[2021-04-01] MEDS: SODIUM CHLORIDE FLUSH 10ML SYR IVF SCH (09:46)
[2021-04-01] MEDS: OMEPRAZOLE 20 MG CAPSULE.DR PO SCH (09:51)
[2021-04-01] MEDS: DOXYCYCLINE 100MG TABLET PO SCH (09:51)
[2021-04-01] MEDS: SENNA/DOCUSATE TABLET PO SCH (09:51)
[2021-04-01] MEDS: THIAMINE 100MG TABLET PO SCH (09:51)
[2021-04-01] MEDS: FOLIC ACID 1 MG TABLET PO SCH (09:51)
[2021-04-01] MEDS: ESCITALOPRAM 10MG TABLET PO SCH (09:51)
[2021-04-01 13:47] VITALS: BP 158/87
[2021-04-01] MEDS ORDERED: AMOX1TAB64 PO (15:04)
[2021-04-01] MEDS ORDERED: DOXY100T PO (15:04)
[2021-04-01] MEDS: ENOXAPARIN 40 MG/0.4 ML SQ SCH (17:13)
== END 2021-04-01 17:47 | disposition home or self-care (01) | DRG 177 ==
LOC: ED 21:58 → EDIP 03-29 00:33 → 3N 03-29 02:04
PROVIDERS: ADMIT Family Medicine; ATTEND Internal Medicine
DX: J15.6 Pneumonia due to other Gram-negative bacteria (principal); J96.01 Acute respiratory failure with hypoxia; E87.2 Acidosis; J44.0 Chronic obstructive pulmonary disease with (acute) lower respiratory infection; J44.1 Chronic obstructive pulmonary disease with (acute) exacerbation; J98.11 Atelectasis; E87.6 Hypokalemia; F10.10 Alcohol abuse, uncomplicated; Z66 Do not resuscitate; F15.10 Other stimulant abuse, uncomplicated; R53.81 Other malaise; F17.210 Nicotine dependence, cigarettes, uncomplicated; F32.9 Major depressive disorder, single episode, unspecified; I10 Essential (primary) hypertension; I25.2 Old myocardial infarction; Z59.0 Homelessness; Z82.5 Family history of asthma and other chronic lower respiratory diseases; Z87.01 Personal history of pneumonia (recurrent); Z91.041 Radiographic dye allergy status
CPT/HCPCS: 36415; 71045; 71275; 80053; 83605; 83735; 83880; 84100; 84145; 84484; 85025; 87040; 93005; 94640; 96374; G0378; J0295; J0456; J0696; J1650; J2405; J7613; Q9967; J2930; J7030; J7050

== ENCOUNTER 2021-05-17 06:14 | Emergency (ER) | payer MEDICARE, MEDICAID ==
[~2021-05-17] VITALS: Ht 167.6 cm; Wt 58.5 kg
[~2021-05-17 06:14] MED LIST changes: +AMOX1TAB64 PO; +DOXY100T PO
--- NOTE | 2021-05-17 07:05 | NUR ---
PA AT BS
--- NOTE | 2021-05-17 07:06 | NUR ---
PT AMBULATORY TO ROOM FROM [facility], CONNECTED TO MONITORS. CALL LIGHT WITHIN REACH. PT C/O ETOH WITHDRAWLS. STATES LAST DRINK WAS YESTERDAY AFTERNOON. PT STATES HE DOES NOT WANT TO GO TO A DETOX FACILITY, THAT HE RAN OUT OF MONEY
[2021-05-17 07:13] VITALS: BP 161/107
[2021-05-17] MEDS ORDERED: THIAMINE 100MG TABLET ONE (07:19)
[2021-05-17] MEDS ORDERED: ALBUTEROL/IPRATROPIUM 2.5MG/0.5MG, 3 ML ONE (07:20)
--- NOTE | 2021-05-17 07:25 | NUR ---
PT MEDICATED PER EMAR, NADN/VSS. CALL LIGHT WITHIN REACH. BED IN LOWEST POSITION, BED RAILS UP X2.
[2021-05-17 07:30] LABS: BASOPHILS % (AUTO) 1 % (0-1); EOSINOPHILS % (AUTO) 2 % (1-7); LYMPHOCYTES % (AUTO) 15 % (22-44); MEAN CORPUSCULAR HEMOGLOBIN 33.7 pg (27.5-34.5); MEAN CORPUSCULAR HGB CONC 34.2 g/dL (33.2-36.2); MEAN PLATELET VOLUME 7.4 fL (7.4-10.4); MONOCYTES % (AUTO) 10 % (2-9); NEUTROPHILS % (AUTO) 72 % (42-75); PLATELET COUNT 204 x10^3/uL (130-400); RED CELL DISTRIBUTION WIDTH 15.3 % (9.4-14.8)
[2021-05-17] MEDS ORDERED: ALBUTEROL/IPRATROPIUM 2.5MG/0.5MG, 3 ML NEB ONE (07:30)
[2021-05-17] MEDS ORDERED: THIAMINE 100MG TABLET PO ONE (07:30)
[2021-05-17 07:39] LABS: ALANINE AMINOTRANSFERASE 37 U/L (12-78); ALBUMIN 3.5 g/dL (3.4-5.0); ANION GAP 11 mmol/L (5-15); CALCIUM 8.4 mg/dL (8.5-10.1); CHLORIDE 104 mmol/L (98-107); CREATININE 0.49 mg/dL (0.7-1.3)
[2021-05-17 07:44] LABS: ALKALINE PHOSPHATASE 80 U/L (45-117); BILIRUBIN,TOTAL 0.8 mg/dL (0.2-1.0); TOTAL PROTEIN 7.1 g/dL (6.4-8.2); TROPONIN I < 0.015 ng/mL (0.000-0.045)
[2021-05-17] MEDS ORDERED: LORazepam 1MG TABLET PO ONE (08:00)
[2021-05-17] MEDS ORDERED: LORazepam 1MG TABLET ONE (08:39)
--- NOTE | 2021-05-17 08:51 | NUR ---
Patient given discharge instructions and they have confirmed that they understand the instructions. Patient ambulatory with steady gait.
== END 2021-05-17 09:06 | disposition home or self-care (01) ==
LOC: ED 07:19
DX: J44.1 Chronic obstructive pulmonary disease with (acute) exacerbation (principal); F10.139 Alcohol abuse with withdrawal, unspecified; R11.2 Nausea with vomiting, unspecified; Y90.0 Blood alcohol level of less than 20 mg/100 ml
CPT/HCPCS: 36415; 71045; 80053; 80320; 84484; 85025; 93005; 94640; 99285; J7512; G0480

== ENCOUNTER 2021-06-30 07:54 | Emergency (ER) | payer MEDICARE, MEDICAID ==
[~2021-06-30] VITALS: Ht 165.1 cm; Wt 69.0 kg
[2021-06-30 08:00] VITALS: BP 141/89
--- NOTE | 2021-06-30 08:02 | NUR ---
ORIENTED TO PLACE/TIME/SITUATION, YELLS V LOUDLY, LOOSE RATTLY COUGH, NOT CLEARING SECRETIONS WELL, GIVEN ANITA CastilloXJeff. CALL PRETTY/FALL PRECS.
--- NOTE | 2021-06-30 08:37 | NUR ---
PATRICK IN ROOM FOR EVAL, PLAN CT/CXR/TDAP/SUTURES.
--- NOTE | 2021-06-30 08:47 | NUR ---
pt to ct. as
--- NOTE | 2021-06-30 08:51 | NUR ---
report to bryan nunez. as
[2021-06-30] MEDS ORDERED: DIPH,PERTUSS(ACELL),TET VAC/PF 0.5 ML IM-VACC ONE (09:00)
[2021-06-30] MEDS ORDERED: LIDOCAINE-MPF 1%, 5ML INFIL ONE (09:00)
--- NOTE | 2021-06-30 09:24 | NUR ---
PT RESTING IN [facility], O2 CURRENTLY 86%, PT STATES "I AM NOT WEARING OXYGEN." EDMD AWARE. WCTM.
[2021-06-30] MEDS ORDERED: LIDOCAINE-MPF 1%, 5ML ONE (09:56)
--- NOTE | 2021-06-30 10:05 | NUR ---
PT REFUSING TDAP AT THIS TIME. VASHTI OLIVAREZ AT BEDSIDE, PT REFUSING SUTURES FOR LAC.
--- NOTE | 2021-06-30 10:06 | NUR ---
PT REFUSING VITAL SIGNS AT THIS TIME WELL. PT HAS RIPPED OFF ALL MONITORING STATING "I DON'T NEED THIS". EDMD AWARE.
--- NOTE | 2021-06-30 10:18 | NUR ---
PT AMBULATING OUT OF ROOM STEADILY ASKING MULTIPLE EMPLOYEES "HOW DO I GET OUT?". THIS RN ATTEMPTED TO REDIRECT PT MULTIPLE TIMES, PT INSISTING ON LEAVING. PT AMBULATED STEADILY OUT TO LOBBY.
== END 2021-06-30 10:20 | disposition left against medical advice (07) ==
LOC: ED 08:04
DX: S02.2XXA Fracture of nasal bones, initial encounter for closed fracture (principal); F10.220 Alcohol dependence with intoxication, uncomplicated; I10 Essential (primary) hypertension; I25.2 Old myocardial infarction; J44.9 Chronic obstructive pulmonary disease, unspecified; I48.91 Unspecified atrial fibrillation; F17.200 Nicotine dependence, unspecified, uncomplicated; Y90.0 Blood alcohol level of less than 20 mg/100 ml; W18.30XA Fall on same level, unspecified, initial encounter; Y93.89 Activity, other specified; Y92.89 Other specified places as the place of occurrence of the external cause; Y99.8 Other external cause status
CPT/HCPCS: 70450; 70486; 71045; 72125; 99283; 99285

== ENCOUNTER 2021-06-30 11:26 | Emergency (ER) | payer MEDICARE, MEDICAID ==
[~2021-06-30] VITALS: Ht 165.1 cm; Wt 69.0 kg
[2021-06-30 11:31] VITALS: BP 132/78
--- NOTE | 2021-06-30 11:36 | NUR ---
BIBA FOR ETOH AND GLF WITH NOSEBLEED. ELOPED EARLIER FOR SAME, REPORTS DRINKING 1/2 PINT OF VODKA SINCE HE LEFT ER EARLIER.
== END 2021-06-30 13:32 | disposition home or self-care (01) ==
LOC: ED 11:28
DX: S02.2XXA Fracture of nasal bones, initial encounter for closed fracture (principal); S01.21XA Laceration without foreign body of nose, initial encounter; F10.220 Alcohol dependence with intoxication, uncomplicated; I10 Essential (primary) hypertension; I25.2 Old myocardial infarction; I48.91 Unspecified atrial fibrillation; J44.9 Chronic obstructive pulmonary disease, unspecified; F17.200 Nicotine dependence, unspecified, uncomplicated; W01.0XXA Fall on same level from slipping, tripping and stumbling without subsequent striking against object, initial encounter; Y93.01 Activity, walking, marching and hiking; Y92.410 Unspecified street and highway as the place of occurrence of the external cause; Y99.8 Other external cause status
CPT/HCPCS: 99283